=== PATIENT | male | born 1935 | race Caucasian/White ===

== ENCOUNTER 2023-09-02 14:50 | Inpatient (IN) | payer MEDICARE, BC, SELFPAY ==
[2023-09-02] VITALS (16 sets, daily range): BP systolic 85–159; BP diastolic 50–89; PULSE 72–98; BMI 26.1; BMI 27.3
[2023-09-02] MEDS: NSS 1000 IV (09:11)
[2023-09-02 09:22] LABS: ALT (SGPT) 12 U/L (0-50); AST (SGOT) 22 U/L (17-59); Albumin 3.5 g/dl (3.5-5.0); Alkaline Phosphatase 133 U/L (38-126); Blood Urea Nitrogen 17 mg/dl (9-20); Calcium 8.9 mg/dl (8.4-10.2); Carbon Dioxide 26 mmol/L (22-30); Chloride 105 mmol/L (98-107); Estimated Creatinine Clearance 58 ml/min; Glucose 111 mg/dl (70-99); Potassium 4.2 mmol/L (3.5-5.1); Sodium 137 mmol/L (135-145); Total Protein 6.2 g/dl (6.3-8.2); eGFR > 60.00
--- NOTE | 2023-09-02 09:31 | EDRN ---
Dr. Sullivan currently at the pts bedside speaking with the pt and the pts family
[2023-09-02 09:35] LABS: % Basophils 0.4 % (0-2); % Eosinophils 0.4 % (0-6); % Lymphocytes 69.3 % (20.5-51.1); % Monocytes 8.8 % (1.7-9.3); % Neutrophils 21.1 % (42.2-75.2); Absolute Monocytes 0.3 10^3/uL (0.1-0.6); Hematocrit 37.5 % (39.0-52.0); Hemoglobin 11.6 g/dL (13.0-18.0); Mean Corp Hgb Conc. 30.9 g/dL (33.0-37.0); Mean Corpuscular Hgb 27.9 pg (27.0-31.0); Mean Corpuscular Volume 90.1 fL (80.0-94.0); Nucleated Red Blood Cells % 0 % (-); Platelet Count 56 10^3/uL (130-400); Red Blood Cell Count 4.16 10^6/uL (4.70-6.10); Red Cell Dist. Width 19.2 % (11.5-14.5); White Blood Cell Count 2.8 10^3/uL (4.8-10.8)
[2023-09-02 09:43] LABS: Absolute Neutrophils 0.6 10^3/uL (1.4-6.5)
--- NOTE | 2023-09-02 09:45 | ED.GENMED ---
History of Present Illness
General
Chief Complaint: Fainting/Passed Out
Source: patient, spouse and family
Exam Limitations: altered mental status and dementia
Time Seen by Provider: 09/02/23 09:25
Nursing documentation reviewed up to this point in time: agreed with
Travel History
Have you had any contact with someone who has COVID-19?: No
Do you have any symptoms of coronavirus? Fever > 100 degrees, chills, cough, shortness of breath, sore throat, loss of taste or smell, muscle aches, or headache?: No
History of Present Illness
History of Present Illness:
88-year-old male presents with an episode of heavy trouble getting off the toilet, suffers from dementia PAF previously on beta-andre and Eliquis not currently also myelodysplasia, was admitted to [facility] a few weeks ago with a similar
episode for 3 days no definitive diagnosis did not mention any A-fib at that time and they did have A-fib after her surgery, he is having OT and PT in his house doing okay with his walker today he called out from the toilet apparently had a
large bowel movement could not get up states he looked a bit rigid eyes rolled up with speech abnormality no definitive seizure, now he is awake alert little bit more confused than his baseline
Past History
Past History
ED Past Medical History: Arrthythmia and Other (Dementia myelodysplasia); Negative Seizures
Social History
Tobacco: Non-smoker
Alcohol: None
Drug: None
Personal:
Living: with family
Employment: Retired
Phy Exam
Physical Exam
Physical Exam:
Physical Exam
General: Elderly male no tongue biting slow to respond
Neck: No posterior neck
Heart: Irregular slow
Lungs: no acute respiratory distress. clear bilaterally
Abdomen: Nontender
Neuro: Slow to answer questions moves all extremities no slurred speech
Skin: no rash
Psychiatric: cooperative
Extremities: no edema
Course
Orders/Labs/Results
Orders:
Orders
09/02/23 08:54
EKG [Electrocardiogram (*1)] Urgent
Reason for Study: Vertigo / Dizzy
EKG- Treatment ONCE
09/02/23 08:56
Complete Blood Count/With Diff Urgent
Comprehensive Metabolic Panel Urgent
09/02/23 09:11
0.9% Sodium Chloride 1000 ml [Nss] 1,000 ml IV BOLUS
09/02/23 09:41
CT Head W/o Iv Contrast Urgent
Comment:
Reason For Exam: speach abnormal
09/02/23 12:13
Urinalysis Reflex To Culture Urgent
Date Specimen was Collected: 09/02/23
Time Specimen was Collected: 12:09
Abnormal Lab Results
09/02/23
08:56
WBC 2.8 L 10^3/uL
(4.8-10.8)
RBC 4.16 L 10^6/uL
(4.70-6.10)
Hgb 11.6 L g/dL
(13.0-18.0)
Hct 37.5 L %
(39.0-52.0)
MCHC 30.9 L g/dL
(33.0-37.0)
RDW 19.2 H %
(11.5-14.5)
Plt Count 56 L 10^3/uL
(130-400)
Absolute Neuts (auto) 0.6 L* 10^3/uL
(1.4-6.5)
Neutrophils % 21.1 L %
(42.2-75.2)
Lymphocytes % 69.3 H %
(20.5-51.1)
Glucose 111 H mg/dl
(70-99)
Alkaline Phosphatase 133 H U/L
(38-126)
Total Protein 6.2 L g/dl
(6.3-8.2)
09/02/23 08:56
09/02/23 08:56
Vital Signs
Initial and Last Documented VS:
Initial Vital Signs
Temp Pulse Resp BP Pulse Ox
98.5 F 83 16 89/53 100
09/02/23 08:55 09/02/23 08:55 09/02/23 08:55 09/02/23 08:55 09/02/23 08:55
Last Documented Vital Signs
Temp Pulse Resp BP Pulse Ox
98.5 F 82 14 102/62 99
09/02/23 08:55 09/02/23 11:31 09/02/23 11:31 09/02/23 11:31 09/02/23 11:31
MDM/Problems Addressed
Differential Diagnosis Includes:
Vasovagal arrhythmia electrolyte abnormality orthostasis CVA progressive dementia UTI
MDM/Problems Addressed:
Weakness confusion
Chronic conditions affecting care:
Dementia A-fib
Chronic conditions affecting care: Arrhythmia and Neurological disorder
Acute Exacerbation and/or Progression of Chronic Illness: Arrhythmia and Neurological disorder
*Radiology
Radiology exam reviewed: preliminary read by ED provider
*Pulse Oximetry
Patient hypoxic: no
*EKG
Interpreted by ED Provider?: Yes
Interpretation: abnormal
Comparison EKG: no comparison EKG present
Heart Rate: 70
Rate: normal
Rhythm: a-fib
Ischemia: non-specific ST changes
*Batch And Furnace Operator Interpretation
Rate: normal
Interpretation: normal
Heart Rate: 70
Rhythm: a-fib
*Critical Care Note
Total Time (30-74mins, 75-104mins- exclusive of procedures): Not Applicable
Update Note
Update Note:
Update patient with low blood pressure thrombocytopenic has a fairly severe dementia sounds like vasovagal ensure it safe for him to go home in the state,
ED Attending Note
-
Portions of this chart may have been created with voice recognition software.� Occasional wrong word or��sound alike� substitutions may have occurred due to the inherent limitations of voice recognition software.
Discharge Plan
Departure
Patient Disposition: Admit
Date of Disposition: 09/02/23
Time of Disposition: 12:35
Admit to: Telemetry
Presentation/result/management discussed w/ accepting MD/DO: Hospitalist
Patient with high blood pressure during this ER visit?: No
Condition: Fair
Covid-19: Not Applicable
Discharge Problem:
Syncope, Orthostasis, PAF (paroxysmal atrial fibrillation)
Prescriptions:
No Action
acetaminophen [Tylenol] 325 mg Tablet
650 mg PO Q6HPRN PRN (Reason: mild pain)
sertraline 100 mg Tablet
100 mg PO DAILY
Theragen Tablet
1 tab PO DAILY
Referrals:
Anay Stewart DO [Family Provider] -
Interventions
Interventions:
*Risk Screen - Suicide Last Done: 09/02/23 08:55
*General Assessment Last Done: 09/02/23 08:55
*Neglect/Abuse Screening Last Done: 09/02/23 08:55
ED- Fall Risk Assessment Last Done: 09/02/23 08:55
*ED COVID-19 Vaccine History Last Done: 09/02/23 08:55
ED- Cardiac Assessment Last Done: 09/02/23 08:55
ED- Neurological Assessment Last Done: 09/02/23 08:55
Discharge Date and Time
Print Language: SWEDISH
[2023-09-02 12:49] LABS: Urine Albumin Negative (Neg - Trace); Urine Bilirubin Negative (Negative); Urine Character Clear (Clear); Urine Color Yellow; Urine Glucose Negative (Negative); Urine Ketone Negative (Negative); Urine Leukocyte Trace (Negative); Urine Nitrite Negative (Negative); Urine Occult Blood Negative (Negative); Urine Urobilinogen Negative (Neg - 1+)
[2023-09-02 13:10] LABS: Urine Bacteria Few (Negative); Urine Red Blood Cell 0-2 /HPF (0-2); Urine Squamous Cell 0-2 /LPF (Few); Urine White Cell 0-2 /HPF (0-5)
--- NOTE | 2023-09-02 13:21 | HPS.HSE ---
Addendum entered and electronically signed by Bora Contreras MD 09/02/23 15:34:
Seen and examined by me independently in collaboration with the nurse practitioner Gerald.
Past medical history/social history/medication/allergies reviewed.
Lab data and imaging data reviewed.
Patient with underlying dementia , MDS with chronic pancytopenia presents with episode of sudden onset of change in mental status with confusion.
History is from the was at bedside. Patient is alert but not oriented to place person or the surrounding things.
3 weeks ago he was at [facility] because he got up 1 morning and all of a sudden he was a different person with his mental status and also he could not walk. Evaluated apparently with a CT and MRI of the brain which showed no evidence of stroke.
Not clear what the final diagnosis was but he got somewhat better and went home.
This morning he was on the toilet seat and recently called for his and he was noted to be very stiff ,slumped to side. Mouth was stretched out and there was guttural sounds but no LOC. His eyes were open but they were kind of rolled up. He
was not responsive much at that time. Then he had more confusion. He could not recognize his kids when he was in the ER here today but later he started to come around and then he recognized them. Currently is improved but still not back to the
baseline. No obvious focal neurological deficit noted.
Rate controlled atrial fibrillation noted.
CT head was negative.
Chronic pancytopenia and based on the discussions with the daughter who is the PCP as well for the patient are at his baseline.
As per daughter Cora who is also his PCP_ He had an episode of A-fib postop with Ortho surgery and he was briefly on beta-andre and anticoagulation. Eliquis was stopped because of his chronic thrombocytopenia. Beta-andre also was stopped
as he was in sinus rhythm without recurrence.
clinical concern is of a TIA versus seizure. Will also rule out any A-fib related tachy jossie arrhythmias but with the way he presents with clear syncope doubt this is cardiac.
Consult Neurology
Long discussion with daughter Cora a physician and also PCP to her father. She said this morning she also had a talk with the sister who is a kid club attendant at [employer]. With 2 recurrent [id number] confusion and change in status
symptoms and finding on A-fib concern for TIA and to consider anticoagulation. She are hesitant with his MDS and chronic thrombocytopenia. Also advised her to explore watchman . Left msg to his primary kid club attendant Dr Bolanos.
AC once stroke is rule out if family make a decision on that.
Original Note:
Family Physician
-
Family Physician: Anay Stewart
Chief Complaint
-
Weakness
History of Present Illness
88-year-old with past medical history for dementia, MDS,'s PAF presented to us with weakness. Today after having bowel movement, he could not get up from the toilet. Patient yelled out for his . found him sitting on the toilet with a
rigid body. He was not able to talk. Patient was sloping out of the toilet seat. Patient was not able to comprehend at all. It lasted for 10 minutes. When he came to the hospital, he was having trouble finding his daughter's and 's name.
Patient was at [facility] 3 weeks ago with confusion and generalized weakness. Patient had a MRI and CAT scan done which was not remarkable. Patient was sent home with PT and OT. At present patient is back to baseline. Patient denies any
headache, dizziness. Patient denies any fever, chills, chest pain, short of breath. Patient denied abdominal pain, nausea, vomiting, diarrhea. Patient denied dysuria hematuria. Patient has dementia.
patient was diagnosed with atrial fib in 2021 after right hip replacement. patient ws on AC and metoprolol. stopped AC due to MDS. stopped Metoprol because he was in NSR
Head CT negative. Urinalysis negative. Patient was positive for orthostatic hypotension received 1 L normal saline in the ER. Admitting for further management
Medical History
Past Medical History
Past Medical History: Reports Other
Additional Past Medical History:
MDS
PAF
Dementia
Past Surgical History: Reports Other
Additional Past Surgical History:
Bilateral hip replacement
Back surgery
Right shoulder surgery
Social History
Tobacco: Non-smoker
Alcohol: Occasional
Drug: None
Personal:
Living: With Family
Family History
Family History: Not pertinent
Allergies / Home Medications
Allergies reflects when Allergies were last updated in [employer].
Home Medications with original date entered in [facility]
Allergy/Medication List:
Allergies
Allergy/AdvReac Type Severity Reaction Status Date / Time
latex Allergy Intermediate Rash Verified 06/26/22 07:00
Home Medications
acetaminophen 325 mg tablet (Tylenol) 650 mg PO Q6HPRN PRN mild pain 09/02/23
sertraline 100 mg tablet 100 mg PO DAILY 09/02/23
therapeutic multivitamin 1 tab PO DAILY 09/02/23
Review of Systems
-
Constitutional: Reports No Symptoms
EENT: Reports No Symptoms
Respiratory: Reports No Symptoms
Cardiac: Reports No Symptoms
Abdomen/GI: Reports No Symptoms
: Reports No Symptoms
Musculoskeletal: Reports No Symptoms
Skin: Reports No Symptoms
Neurological: Reports No Symptoms
Endocrine: Reports No Symptoms
Hematologic/Lymphatic: Reports No Symptoms
Psych: Reports No Symptoms
Physical Exam
Vital Signs
Vital Signs
Temp Pulse Resp BP Pulse Ox
98.5 F 77 14 88/57 99
09/02/23 08:55 09/02/23 12:45 09/02/23 12:45 09/02/23 12:00 09/02/23 12:15
Physical Exam
General: Well Developed, Well Nourished and No Apparent Distress
HEENT: NormoCephalic, Moist mucous membranes and Atraumatic
Respiratory: Clear
Cardiac: S1/S2 and Regular Rhythm; No Murmur or Rub
GI: Soft, Non Tender, Non Distended and Normal Bowel Sounds; No Organomegaly
Rectal: Deferred by Provider
Musculoskeletal: No Clubbing, No Cyanosis and No Edema
Skin: No Rash
Neuro: AO x 3 and Nonfocal/grossly intact
Psych: Calm
Laboratory Results
-
09/02/23 08:56
09/02/23 08:56
Laboratory Results
Total Bilirubin 1.0 mg/dl (0.2-1.3) 09/02/23 08:56
AST 22 U/L (17-59) 09/02/23 08:56
ALT 12 U/L (0-50) 09/02/23 08:56
Alkaline Phosphatase 133 U/L (38-126) H 09/02/23 08:56
Data Reviewed
-
CT Scan: Report Reviewed by me
Lab Data: Labs Reviewed by me
Impression/Plan
-
#near syncope
#positive orthostatics
-Stockings
-Monitor orthostatics
-Head CT with impression of No acute intracranial abnormalities.Findings compatible with diffuse cortical atrophy with nonspecific white matter changes as described above.
-EKG with A-fib
-neurology consulted
# Pancytopenia likely from MDS
-WBC 2.8, hemoglobin 11.6, platelets 56
-Continue to monitor
# History of PAF
-EKG with A-fib
-Heart rate controlled
-Continue to monitor
# History of dementia/anxiety
-Sertraline continued
# DVT prophylaxis
-SCDs
# CODE STATUS
-Full code
--- NOTE | 2023-09-02 14:17 | CON.NEURO4 ---
Addendum entered and electronically signed by Jeovanny Vasquez MD 09/02/23 16:06:
I saw and evaluated the patient I reviewed the note by Ana Luisa Painting and agree with the findings the following comments
The patient is an 88-year-old man with a past medical history of atrial fibrillation, dementia, myelodysplastic syndrome with thrombocytopenia, meningioma who presents to the hospital with near loss of consciousness along with abnormal stiffening
observed by his in the bathroom after a bowel movement this morning. History is obtained from predominantly the patient's and daughter with patient contributing some however his history is limited by dementia.
Patient and his relate that he was normal yesterday night. This morning the patient says he woke feeling as though he needed to have a bowel movement and he proceeded to go to the bathroom. His did not see him before he got to the
bathroom she was in the kitchen this morning. Patient members for having a bowel movement and then not much until he remembers his coming in to help him and then EMS workers arriving.
Patient's relates that he had called her for help and when she came in he was not fully unconscious but was poorly verbal and had a whole body stiffening appearance bilaterally of the upper and lower extremities. She did not observe any
repetitive or convulsive movements of the limbs. The stiffness was brief and the patient did seem to be confused for around 10 minutes before becoming much more oriented and talkative before this he was able to speak but was confused. No tongue
bite or bleeding was seen.
He came into the ED and did have mild hypotension 89/53 and it has improved blood pressure with a liter of normal saline. Patient reports that he has had good appetite recently.
Patient's and daughter relate that he has had recurrent issues of vasovagal type syncope for around 20 years now sometimes related to dehydration, these episodes did not happen from sleep and were not associated with tongue bite.
Patient had had a hospitalization at [facility] around 3 weeks ago where he had a sudden decline in walking difficulty and balance along with memory, he did improve some from this but did not make a completely full recovery with regard to mental
status and overall function.
Patient was diagnosed at first with mild cognitive impairment by local neurologist Dr. Mayfield which has worsened in the years since diagnosis.
Patient had previously been on anticoagulation for paroxysmal atrial fibrillation ablation but is no longer on this. With anticoagulation he did have some nosebleeds.
Patient has not had any history of overt ischemic stroke.
Neurologic examination
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
multistep commands, repetition is intact, spontaneous speech is fluent, insight is poor, short-term memory is impaired, no hallucinations no neglect.
Cranial nerves II through XII are normal
Parkinsonism or rigidity or tremor no pronator drift power is 5/5 for arm flexion and hip flexion bilaterally
Intact vibratory sense distally
Diminished reflexes throughout
Normal finger-nose testing bilaterally.
Gait exam deferred
CT head noncontrast shows generalized atrophy no acute infarct or hemorrhage no signs of subtle ischemia, moderate white matter disease in the hemispheres bilaterally.
Assessment:
1) I feel it is very likely the patient's episode this morning was an instance of vasovagal type syncope accompanied by some stiffening/convulsive type movement which is common with these episodes. Association with bowel movement along with
previous history of vasovagal episodes and the mildly low blood pressure I feel support vasovagal type syncope rather than seizure. Confusion after the syncope was around 10 minutes, if the patient with dementia had had generalized seizure I would
expect a much longer postictal period than 10 minutes.
-Such symptoms would be extremely rare to be a manifestation of TIA and I feel that this episode is unlikely to be a manifestation of TIA
2) previous decline around 3 weeks ago sounds like the stepwise decline either due to dementia, frailty or myelodysplastic syndrome effects on health
3) Thrombocytopenia most likely due to myelodysplastic syndrome
4) Atrial fibrillation
5) Previous diagnosis of mild cognitive impairment has likely progressed to dementia. Alzheimer's disease versus vacular dementia are most likely types.
Recommendations
-Hydration, follow blood pressure, cardiac telemetry
-Would obtain orthostatic vital signs tomorrow
-Decision to pursue anticoagulation or not will be an informed decision and risk-benefit analysis. I do not see any absolute contraindications to anticoagulation. Certainly he will be of elevated bleeding risk given thrombocytopenia as well as his
age and he did have some degree of nosebleeds previously with anticoagulation. Discussed with the family that this would be a risk and benefit analysis. Watchman device is a middle ground could be considered but would require antiplatelet therapy
at least for couple of months.
-Do not feel the patient would require an EEG study or further brain imaging
-Minimize sedating medications, avoid excessive disturbance at night, try to keep normal sleep wake schedule, avoid anticholiergics to help prevent delirium in the patient given existing dementia
Original Note:
Consultation - Neurology 4
-
CONSULTING PHYSICIAN: Merna Vasquez MD
REFERRING PHYSICIAN: Hospitalists/VALARIE Harden
DICTATED BY: VALARIE Montgomery
DATE/TIME OF REQUEST: 09/02/23
DATE/TIME OF CONSULTATION: 09/02/23
Reason for Consultation: Syncope
History of Present Illness:
This is an 88-year-old right-handed male who has presented to the hospital with report of syncopal event at home. Patient has dementia and some of this information is obtained from his at bedside. Patient's reports that he went to bed in
his usual state last evening (09/01/23). This morning around 0730 his reports hearing him getting ready in the bathroom when he started calling out for her for help. She found him sitting on the toilet having had a bowel movement. He tried to
stand up and wasn't able to, his whole body then became stiff but had no shaking, his eyes were open and rolled back, and he was unable to speak. She reports that he never fully lost consciousness. Patient reports that he remembers his coming
into the bathroom and then two pipe foreman arriving to help him but cannot recall any further details. When EMS arrived at the house about 10 minutes later he had 'come to' and was able to speak but was very confused. Prior to this event she reports he had
shaved his face and done his hair. On arrival to the ER blood pressure was 89/53. CT head was obtained and is negative for any acute abnormalities. Patient's reports that initially on arrival here he didn't know his daughter's name but
currently he seems back to his baseline and knows their names. He denies any headache, dizziness, speech/swallow difficulty, numbness, weakness, nausea, chest pain, palpitations, and shortness of breath.
About three weeks ago his reports that he woke up one morning and was not at all himself. He was 10 times more confused than usual, not doing his usual routine, and his gait was very unsteady. He was admitted at [facility] for evaluation and she
reports his entire workup including MRI brain was unremarkable. Upon returning home about 3 days later, she reports he was 90% back to his baseline but never came 100% back. Since then PT has been coming to the house several times per week and his
gait has returned to normal.
Patient is followed by Neurology Dr. Mayfield as an outpatient for dementia. His reports that in February 2022 he started having noticeable short term memory issues. In May 2022 he was diagnosed with mild cognitive impairment and his
reports they progressed this diagnosis to dementia in the past year. He has not been on any memory stabilization medications. They use white boards with date/time and reminders around the house to help keep him oriented. He has been using a cane for
9 months and since his hospitalization 3 weeks ago he has been using a walker. She denies any falls in the past several years. Additionally, he had a hip replacement in July 2022 and had paroxysmal Afib after that surgery. He was on Eliquis for
some time but due to thrombocytopenia and severe nose bleeds it was stopped after several months. He has had vasovagal syncope intermittently over the past 20 years. This typically occurs when he is dehydrated. His usual presentation when this
happens is that he turns green, is diaphoretic, and has diarrhea prior to passing out. He has never had body stiffening or eye rolling. She reports that it is not unusual for his blood pressure to run low. She denies any recent fevers or infections,
the only abnormality is that last night he urinated 4 times throughout the night when he typically only gets up twice nightly.
Past Medical History: Paroxysmal Afib (not on OAC), meningioma, dementia, myelodysplasia, thrombocytopenia, BPH, elevated PSA
Surgical History: Lumbosacral decompression x4, R THR
Family History: Reviewed and noncontributory.
Social History: Denies tobacco and illicit drug use. Rare alcohol.
Allergies: Latex.
Home Medications: See below.
Review of Symptoms:
Patient denies any fever, headache, chest pain, shortness of breath, GI or symptoms.
�Per the HPI.�All systems are reviewed negative except above.
Physical Exam:
The patient is afebrile, abdomen is nondistended, breathing is unlabored, skin is warm and dry, no edema.
Neurologic Examination:
The patient is awake, alert and oriented to self and type of place/not specific hospital. Reports it's April 2024. He is able to follow commands and answer some questions appropriately. Tends to change the subject instead of answering direct
questions. Moderate difficulty with simple calculations. There is no aphasia or dysarthria. On cranial nerve assessment, pupils are 3 mm bilateral, round and reactive to light and accommodation. Visual zhang are full. Extraocular movements are
intact. Facial sensations are intact and bilaterally symmetrical, there is no facial asymmetry. Hearing is diminished bilaterally to normal conversation volume. Tongue palate and uvula are midline. Sternocleidomastoid strengths are full bilaterally.
Motor strengths are 5/5 bilateral upper and lower extremities on medical research [place] scale. There is no drift or involuntary movement noted. Deep tendon reflexes are 2+ bilateral upper and lower extremities and Babinski is absent bilaterally.
Sensations of temperature and vibration are moderately diminished in bilateral lower extremities. There was no extinction noted on double simultaneous stimulation. Coordination is intact by finger to nose bilaterally.
Lab Results: See below.
Neuro Imaging:
1. CT Head 09/02/23: No acute intracranial abnormalities. Findings compatible with diffuse cortical atrophy with nonspecific white matter changes as described above.
Differentials for the patient's presentation include:
1. Likely vasovagal syncope following a bowel movement producing patient's symptoms today.
2. Hypotension, some concern for orthostasis.
3. Low concern for seizure or TIA producing these events. Event three weeks ago perhaps a decline in his cognitive status.
4. Afib not on anticoagulation, thrombocytopenia.
5. Dementia.
Patient has the following risk factors for their symptoms: Bowel movement, hypotension, dementia
Recommendations:
-Goal normotension.
-Check orthostatic vital signs BID.
-PT/OT/ST evaluations.
-Family to make an informed decision about if they want to pursue a Watchman device or anticoagulation, discussed this with them and Neurology's opinion that these events were not consistent with TIAs.
Discussed patient care with: Dr. Vasquez, the patient
Vital Signs and Labs
-
Vital Signs and Labs:
Vital Signs
Temp Pulse Resp BP Pulse Ox
98.5 F 77 14 88/57 99
09/02/23 08:55 09/02/23 12:45 09/02/23 12:45 09/02/23 12:00 09/02/23 12:15
Lab Results
09/02/23 08:56
09/02/23 08:56
Sodium 137 mmol/L (135-145) 09/02/23 08:56
Potassium 4.2 mmol/L (3.5-5.1) 09/02/23 08:56
BUN 17 mg/dl (9-20) 09/02/23 08:56
Glucose 111 mg/dl (70-99) H 09/02/23 08:56
Calcium 8.9 mg/dl (8.4-10.2) 09/02/23 08:56
--- NOTE | 2023-09-02 14:43 | EDRN ---
this RN called the receiving unit and notified them that paper report was going to be tubed up
[2023-09-02] MEDS: TYLENOL 650 MG PO (20:54)
[2023-09-03] VITALS (7 sets, daily range): BP systolic 115–163; BP diastolic 57–89; PULSE 62–88
[2023-09-03 06:45] LABS: Hematocrit 35.3 % (39.0-52.0); Hemoglobin 11.4 g/dL (13.0-18.0); Mean Corp Hgb Conc. 32.3 g/dL (33.0-37.0); Mean Corpuscular Hgb 28.2 pg (27.0-31.0); Mean Corpuscular Volume 87.4 fL (80.0-94.0); Platelet Count 48 10^3/uL (130-400); Red Blood Cell Count 4.04 10^6/uL (4.70-6.10)
[2023-09-03 07:12] LABS: Blood Urea Nitrogen 13 mg/dl (9-20); Carbon Dioxide 25 mmol/L (22-30); Chloride 105 mmol/L (98-107); Estimated Creatinine Clearance 61 ml/min; Glucose 96 mg/dl (70-99); Potassium 4.1 mmol/L (3.5-5.1); Sodium 136 mmol/L (135-145); eGFR > 60.00
[2023-09-03] MEDS: ZOLOFT 100 MG PO (08:53)
--- NOTE | 2023-09-03 10:36 | PTCARENOTE ---
pt with loose incontinent stool this AM while walking to the bathroom. pt at bedside asked if we had given the patient a stool softener, pt has not received one. MD made aware of change in bowel habits
--- NOTE | 2023-09-03 10:58 | W.PN.NEURO.1 ---
Today's Communication / Plan
-
Provide abdominal binder
Continue to check orthostatic vital signs BID.
Family to make an informed decision about if they want to pursue a Watchman device or anticoagulation, would recommend anticoagulation
Neuro Assessment/Plan
Assessment
Neuro Imaging:
1. CT Head 09/02/23: No acute intracranial abnormalities. Findings compatible with diffuse cortical atrophy with nonspecific white matter changes as described above.
Differentials for the patient's presentation include:
1. Likely vasovagal syncope following a bowel movement producing patient's symptoms today.
2. Hypotension, some concern for orthostasis.
3. Low concern for seizure or TIA producing these events. Event three weeks ago perhaps a decline in his cognitive status.
4. Afib not on anticoagulation, thrombocytopenia.
5. Dementia.
Plan
Recommendations:
Provide abdominal binder
Continue to check orthostatic vital signs BID.
Family to make an informed decision about if they want to pursue a Watchman device or anticoagulation, would recommend anticoagulation
Should have routine follow-up with his usual outpatient neurologist.
Subjective/Objective
Subjective Data
Date of Service: September 03, 2023
Objective Data
Vital Signs
Temp Pulse Resp BP Pulse Ox
37.1 C 62 16 142/74 100
09/03/23 07:37 09/03/23 07:37 09/03/23 07:37 09/03/23 07:37 09/03/23 10:19
Lab Results
09/03/23 06:03
09/03/23 06:03
Sodium 136 mmol/L (135-145) 09/03/23 06:03
Potassium 4.1 mmol/L (3.5-5.1) 09/03/23 06:03
BUN 13 mg/dl (9-20) 09/03/23 06:03
Glucose 96 mg/dl (70-99) 09/03/23 06:03
Calcium 9.0 mg/dl (8.4-10.2) 09/03/23 06:03
Patient Allergies
latex Allergy (Intermediate, Verified 06/26/22 07:00)
Rash
Data Reviewed
-
CT Head: Report Reviewed
Labs: Report Reviewed
Reviewed with: Physician
Old Records: Summarized
Past History
Past History
ED Past Medical History: Arrthythmia and Other (Dementia, myelodysplasia, orthostatic hypotension); Negative Seizures
ED Past Surgical History: Orthopedic (Lumbosacral decompression x 4, right THR)
Social History
Tobacco: Non-smoker
Alcohol: None
Drug: None
Personal:
Living: with family
Employment: Retired
Family History
Family History: Other (Reviewed and noncontributory)
Medications
-
Medications:
Generic Name Dose Route Start Last Admin
Trade Name Freq PRN Reason Stop Dose Admin
Acetaminophen 650 mg 09/02/23 16:14 09/02/23 20:54
Acetaminophen 325 Mg Tablet PO 09/30/23 16:13 650 mg
Q6HPRN PRN Administration
mild pain
Bisacodyl 10 mg 09/02/23 16:14
Bisacodyl 10 Mg Rectal Suppository RECTAL 09/30/23 16:13
[id number] PRN
constipation
Polyethylene Glycol 17 grams 09/02/23 16:14
Polyethylene Glycol Powder 17 Grams Packet PO 09/30/23 16:13
DAILYPRN PRN
constipation
Senna/Docusate Sodium 1 tablet 09/02/23 16:14
Docusate W/Senna (Yolanda-Colace) Tablet PO 09/30/23 16:13
BIDPRN PRN
constipation
Sertraline HCl 100 mg 09/03/23 08:00 09/03/23 08:53
Sertraline 100 Mg Tablet PO 10/01/23 07:59 100 mg
DAILY SHAN Administration
[2023-09-03] MEDS: TYLENOL 650 MG PO (14:15)
--- NOTE | 2023-09-03 15:01 | W.PN.HOSP.TC ---
Today's Communication/Plan
-
IV fluids
TSH/Cortisol
EKG
CW orthostatic BP checks
Assessment / Plan
Assessment / Plan
Episode of change in mental status with more confusion and slightly decreased responsiveness-based on available data and testing and story now more concern for vasovagal reaction. His episode was brief. Not much prolonged disorientation to
suggest a seizure. No obvious focal neurological deficit. Neurology thinks less likely TIA or seizure.
On admission his blood pressure was on the lower side. He was also noted to be in new A-fib. positive orthostasis. Symptoms happen when he was having a bowel movement .All going in favor of possible vasovagal. Rule out arrhythmia related.
Patient is back to sinus rhythm on the monitor. Get a twelve-lead EKG.
Orthostatic hypotension-no extrarenal losses. Not on any blood pressure medication. Will give a liter of fluid and see if any improvements. Check a TSH and cortisol. If persistent consider midodrine.
Paroxysmal atrial fibrillation-not on anticoagulation. Eliquis was discontinued in the past because of troublesome epistaxis. See my discussions with daughter yesterday about anticoagulation. I would choose anticoagulation and follow closely.
MDS with pancytopenia-follow counts. Follow outpatient with the primary oncologist.
Discussed with at bedside
Full code
Anticipated Discharge: 24 - 48 hours
Subjective/Interval History
-
Date of Service: September 03, 2023
Patient seated in the chair. Looks comfortable. Confused and tangential in his thinking. Pleasant. No agitation.
at bedside.
His congitionis back to his baseline.
Objective Data
-
Labs:
Laboratory Results
09/03/23
06:03
WBC 2.0 L*
Hgb 11.4 L
Hct 35.3 L
Plt Count 48 L
Sodium 136
Potassium 4.1
Chloride 105
Carbon Dioxide 25
BUN 13
Creatinine 0.9
Glucose 96
Calcium 9.0
Vital Signs:
Vital Signs
Temp Pulse Resp BP Pulse Ox
98.6 F 76 16 121/64 97
09/03/23 11:36 09/03/23 11:36 09/03/23 11:36 09/03/23 11:36 09/03/23 11:36
I&O
09/02/23 09/03/23 09/04/23
06:59 06:59 06:59
Intake Total 360 / 360
Output Total 1020 / 1020
Balance -660 / -660
Review of Systems
-
Unable to obtain full review of systems at this time due to: Dementia
Physical Exam
-
General: No Apparent Distress
HEENT: Moist Mucous Membranes
Respiratory: Clear to Auscultation
Cardiac: Regular Rhythm and S1/S2
GI: Soft
Neuro: Awake, Alert and Oriented (self and person)
Psych: Calm and Confused; Negative Agitated
Data Reviewed
-
Labs: Labs Reviewed by me
[2023-09-03 15:31] LABS: Cortisol, Random 11.6 ug/dl; TSH 2.22 uIU/ml (0.47-4.68)
--- NOTE | 2023-09-03 16:05 | CM ---
MEt with as patient was visiting with friends. 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
He uses rolling walker. He has toilet rails, shower rails, shower seat at home.
Pharmacy: [facility].
HE has used [facility] in past. NO history of SNF. COnfirmed with to add dgtr Dr. Anay Woods as next of kin in addition to .
There is another dgtr who is a reduction furnace operator and professor.
Plan is home. CM to follow for any discharge needs.
[2023-09-03] MEDS: NSS 1000 IV (16:31)
[2023-09-04] VITALS (11 sets, daily range): BP systolic 87–176; BP diastolic 48–86; PULSE 64–116
[2023-09-04 07:09] LABS: Hematocrit 37.2 % (39.0-52.0); Hemoglobin 12.1 g/dL (13.0-18.0); Mean Corp Hgb Conc. 32.5 g/dL (33.0-37.0); Mean Corpuscular Hgb 28.3 pg (27.0-31.0); Mean Corpuscular Volume 86.9 fL (80.0-94.0); Platelet Count 53 10^3/uL (130-400); Red Blood Cell Count 4.28 10^6/uL (4.70-6.10)
[2023-09-04 07:24] LABS: White Blood Cell Count 2.2 10^3/uL (4.8-10.8)
[2023-09-04 07:26] LABS: Blood Urea Nitrogen 12 mg/dl (9-20); Carbon Dioxide 25 mmol/L (22-30); Chloride 104 mmol/L (98-107); Estimated Creatinine Clearance 68 ml/min; Glucose 95 mg/dl (70-99); Sodium 136 mmol/L (135-145); eGFR > 60.00
[2023-09-04] MEDS: ZOLOFT 100 MG PO (08:24)
--- NOTE | 2023-09-04 11:30 | PTCARENOTE ---
Patient's automatic blood pressure taken by tech 87/52, manual BP taken by this RN 90/48 RUE. Patient in and out of afib and NSR on monitor, HR upwards of 110s-120s at times before dropping back to 80s-90s. Patient sitting in chair, denies any
lightheadedness or dizziness at this time. MD made aware, no new orders at current time.
--- NOTE | 2023-09-04 13:30 | PTCARENOTE ---
Addendum entered by Micki Enrique RN 09/04/23 19:35:
Midodrine and metoprolol ordered per MD and administered by this RN - see MAR. Patient's BP one hour after administration of ordered midodrine 115/63, HR 89. Patient states no concerns at this time, abdominal binder and knee high TEDs in place per
order.
Original Note:
Repeat automatic BPs taken by this RN - 98/58 HR 82 LUE, 94/60 HR 71 RUE. Patient continues to deny any lightheadedness or dizziness. Abdominal binder in place per order, MD at bedside to assess.
--- NOTE | 2023-09-04 15:24 | W.PN.HOSP.TC ---
Today's Communication/Plan
-
start on midodrine and low-dose beta-andre as blood pressure permits
Statin Eliquis 2.5 mg twice daily
Echocardiogram
Cardiology consult.
Assessment / Plan
Assessment / Plan
Episode of change in mental status with more confusion and slightly decreased responsiveness-based on available data and testing and story now more concern for vasovagal reaction. His episode was brief. Not much prolonged disorientation to suggest
a seizure. No obvious focal neurological deficit. Neurology thinks less likely TIA or seizure.
On admission his blood pressure was on the lower side. He was also noted to be in new A-fib. positive orthostasis. Symptoms happen when he was having a bowel movement .All going in favor of possible vasovagal. Rule out arrhythmia related.
Paroxysmal afib - patient to back and forth in A-fib. Today he is in A-fib and also is hemodynamically on the lower side with does not tolerate his A-fib. No obvious heart failure. He is asymptomatic. Consult cardiology. Obtain
echocardiogram.Eliquis was discontinued in the past because of troublesome epistaxis. Daughters today are agreeable with anticoagulation because of patient going in and out of A-fib. Will start with 2.5 mg twice a day.
Orthostatic hypotension-no extrarenal losses. Not on any blood pressure medication. s/p 1 liter of fluid with no improvement.Normal TSH and cortisol. Upon discussion with the family who are physicians he has chronic orthostatic hypotension.
Started on midodrine.
MDS with pancytopenia-follow counts. Follow outpatient with the primary oncologist.
Discussed with at bedside / 2 daughters on the phone
Full code
DW cards today
Anticipated Discharge: > 48 hours
Subjective/Interval History
-
Date of Service: September 04, 2023
patient went back to A-fib today. His blood pressure on the lower side. He is voicing no specific complaints. He got dementia and cognitively impaired . He is Pleasantly confused.
at the bedside. She has seen loose stool today.
No diarrhea.
He is eating okay without any nausea vomiting. Does not complain of abdominal pain.
Denies any shortness of breath, chest pain or palpitations.
Objective Data
-
Labs:
Laboratory Results
09/04/23
06:27
WBC 2.2 L*
Hgb 12.1 L
Hct 37.2 L
Plt Count 53 L
Sodium 136
Potassium 4.0
Chloride 104
Carbon Dioxide 25
BUN 12
Creatinine 0.8
Glucose 95
Calcium 9.0
Vital Signs:
Vital Signs
Temp Pulse Resp BP Pulse Ox
98.2 F 71 20 94/60 97
09/04/23 11:38 09/04/23 13:42 09/04/23 11:38 09/04/23 13:42 09/04/23 11:38
I&O
09/03/23 09/04/23 09/05/23
06:59 06:59 06:59
Intake Total 360 / 360 2160 / 2160
Output Total 1020 / 1020 1350 / 1350
Balance -660 / -660 810 / 810
Review of Systems
-
Unable to obtain full review of systems at this time due to: Dementia
Physical Exam
-
General: No Apparent Distress
HEENT: Moist Mucous Membranes
Respiratory: Clear to Auscultation
Cardiac: S1/S2 (hard to hear), Irregular Rhythm and Tachycardic; Negative JVD
GI: Soft
Neuro: Awake, Alert and Oriented (self and person)
Psych: Calm
Data Reviewed
-
Labs: Labs Reviewed by me
--- NOTE | 2023-09-04 15:28 | CON.CAR ---
Consultation
Consultation Request
Date/Time Consultation Requested: 09/04/23
Date/Time Consultation Performed: 09/04/23
Requesting Provider: Dr Contreras
Performing Provider: Dr San
Reason for Consultation: Afib
Medical History
-
Chief Complaint: altered mental status
History of Present Illness:
88with history MDS, PAF not on OAT, recent hospitalization at [facility] for AMS without known etiology, her with recurrent newar syncopy while in the bathroom. With this evaluation has included orthostatic hypotension and recurrent atrial
fibrillation. We are asked to help manage paf. Of note, patient now on midodrine and this afternoon had recurrent paf with rvr. Plan was for bb with possible rhythm control strategy. 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
(cardiology-Fiona and family practice-Cora). Dr Contreras had multiple discussions with them and felt consultation for possible rhythm control was indicated.
Of note, initial ECG was atrial fibrillation at 75bpm--QTDC 444m/s. He then had conversion to sinus without any conversion pause,ECG today NSR. Currently he is in atrial tachycardia that has responded to bb. Additionally plt # has been 56,48, 52.
Of note in 2022 level was 30. There is discussion and consideration of using off label Eliqus 2.5mg po bid. Finally, Dr Contreras had discussion with op cards Dr Bolanos and his daughters to consider rhythm strategy. Meanwhile to address his orthostasis
midodrine was started.
Past Medical History
Past Medical History: Arrhythmias (paf no on OAT given MDS and nose bleeds) and Other (OH, MDS, OBS)
Social History
Tobacco: Non-Smoker
Alcohol: None
Personal:
Living: With Family
Family History
Family History: Reviewed & Not Pertinent
Allergies / Home Medications
Allergy/AdvReac Type Severity Reaction Status Date / Time
latex Allergy Intermediate Rash Verified 06/26/22 07:00
�Medication �Instructions �Recorded �Confirmed �Type
acetaminophen 325 mg tablet 650 mg PO Q6HPRN PRN mild pain 09/02/23 09/02/23 History
(Tylenol)
sertraline 100 mg tablet 100 mg PO DAILY Mental Health 09/02/23 09/02/23 History
therapeutic multivitamin 1 tab PO DAILY Supplement 09/02/23 09/02/23 History
Review of Systems
-
Unable to obtain full review of systems at this time due to: Dementia
Physical Exam
Vital Signs
Temp Pulse Resp BP Pulse Ox
98.2 F 71 20 94/60 97
09/04/23 11:38 09/04/23 13:42 09/04/23 11:38 09/04/23 13:42 09/04/23 11:38
Lab Results
09/04/23 06:27
09/04/23 06:27
Physical Exam
General: Well Developed, Well Nourished and No Apparent Distress
HEENT: Normocephalic
Respiratory: Clear, Wheezes, Crackles and Rhonchi
Cardiac: S1/S2, Regular Rhythm, Murmur (none) and Rub (none)
GI: Soft
Genito-urinary: Costovertebral Angle Tend
Neuro: Awake
Psych: Calm
Impression / Plan
-
near syncope:
-sounds c/w vasovagal compounding orthostasis
-agree with midodrine, would change to breakfast and lunch as he goes to bed early
-agree with gavi perez
-don't suspect arrhythmic cause, no conversion pauses send and no symptoms while in arrhythmia now, and presented in rate controlled afib
Arrhythmia:
-PAF
-PAT
-currently in PAT.
-is tolerating low dose bb with successful rate control and bp is adequate
-would prefer rate control if able
-if bp doesn't allow, could consider amiodarone
-C2V -2 for age, Has bled 2 and labile plts and fall risk, in this setting DOAC risk > benefit
-no clear benefit of half dose eliquis but it will increase his bleeding risk. I favor no DOAC, but can be reconsidered as an outpatient
-if plt prove stable enough, could consider watchman
-reportedly normal echo a year ago, can update
OH:
-midodrine with breakfast and lunch
-abd binder
-teds
OBS: severe
d/w Dr Contreras. I also discuss with Fiona Allen his daughter who is a plastic manager.
Data Reviewed
-
EKG: Tracing Personally Visualized and interpreted (NSR ) and Discussed with Patient
[2023-09-04] MEDS: TOPROL XL 25 MG PO (15:52)
[2023-09-04] MEDS: ProAmatine 5 MG PO (15:52)
[2023-09-05 03:19] VITALS: BP 131/80
[2023-09-05 06:17] LABS: Hematocrit 35.7 % (39.0-52.0); Hemoglobin 11.7 g/dL (13.0-18.0); Mean Corp Hgb Conc. 32.8 g/dL (33.0-37.0); Mean Corpuscular Hgb 28.4 pg (27.0-31.0); Mean Corpuscular Volume 86.7 fL (80.0-94.0); Platelet Count 56 10^3/uL (130-400); Red Blood Cell Count 4.12 10^6/uL (4.70-6.10); Red Cell Dist. Width 19.4 % (11.5-14.5)
[2023-09-05 06:18] LABS: White Blood Cell Count 2.3 10^3/uL (4.8-10.8)
[2023-09-05 06:48] LABS: Blood Urea Nitrogen 19 mg/dl (9-20); Calcium 9.1 mg/dl (8.4-10.2); Carbon Dioxide 23 mmol/L (22-30); Chloride 106 mmol/L (98-107); Estimated Creatinine Clearance 55 ml/min; Glucose 101 mg/dl (70-99); Potassium 4.2 mmol/L (3.5-5.1); Sodium 135 mmol/L (135-145); eGFR > 60.00
[2023-09-05 08:43] VITALS: BP 109/59
[2023-09-05] MEDS: ProAmatine 5 MG PO ×2 (09:26→13:10)
[2023-09-05] MEDS: TOPROL XL 12.5 MG PO ×2 (09:27→15:07)
[2023-09-05] MEDS: ZOLOFT 100 MG PO (09:28)
--- NOTE | 2023-09-05 09:48 | W.PN.CD ---
Today's Communication / Plan
-
echo
likely discharge home on midodrine and bb,
explained appropriate midodrine use to his
will arrange follow up with our office
Impression / Plan
-
near syncope:
-sounds c/w vasovagal compounding orthostasis
-agree with midodrine, would change to breakfast and lunch as he goes to bed early
-agree with abd binder, teds
-if echo normal salt and volume replete diet
-don't suspect arrhythmic cause, no conversion pauses send and no symptoms while in arrhythmia now, and presented in rate controlled afib
Arrhythmia:
-PAF
-PAT
-currently in back in sinus without conversion pause
-is tolerating low dose bb with successful rate control and bp is adequate
-would prefer rate control if able
-C2V -2 for age, Has bled 2 and labile plts and fall risk, in this setting DOAC risk > benefit
-no clear benefit of half dose eliquis but it will increase his bleeding risk. I favor no DOAC, but can be reconsidered as an outpatient
-if plt prove stable enough, could consider watchman
-reportedly normal echo a year ago, can update
OH:
-midodrine with breakfast and lunch
-abd binder
-teds
OBS: severe
Subjective: he is without complaint. Sitting in the chair without issue
his at bedside provided history
Physical Exam
Vital Signs/Labs
Vital Signs
Temp Pulse Resp BP Pulse Ox
97.7 F 76 18 109/59 98
09/05/23 08:43 09/05/23 09:27 09/05/23 08:43 09/05/23 09:27 09/05/23 08:43
09/05/23 05:36
09/05/23 05:36
TSH 2.22 uIU/ml (0.47-4.68) 09/03/23 06:03
Physical Exam
Constitutional: No acute distress
Cardiovascular: Rhythm & rate is regular, Pedal edema is absent, JVD pressure is normal, Systolic murmur absent and Diastolic murmur absent
Respiratory: Respiratory effort normal, Lungs clear to auscul., Wheeze Absent and Crackles Absent
Neuro/Psych: AO x 3
Data Reviewed
-
Date of Service: September 05, 2023
Medical Decision Making: Review of Case with other Provider (d/w Dr Shah and updated his daughter Dr Fiona Allen)
--- NOTE | 2023-09-05 09:54 | W.PN.HOSP.TC ---
Today's Communication/Plan
-
Cleared by cardiology for discharge today
Assessment / Plan
Assessment / Plan
Episode of change in mental status with more confusion and slightly decreased responsiveness-based on available data and testing and story now more concern for vasovagal reaction. His episode was brief. Not much prolonged disorientation to suggest
a seizure. No obvious focal neurological deficit. Neurology thinks less likely TIA or seizure.
On admission his blood pressure was on the lower side. He was also noted to be in new A-fib. positive orthostasis. Symptoms happen when he was having a bowel movement .All going in favor of possible vasovagal. Rule out arrhythmia related.
Paroxysmal afib - patient to back and forth in A-fib. Today he is in A-fib and also is hemodynamically on the lower side with does not tolerate his A-fib. No obvious heart failure. He is asymptomatic. Appreciate cardiology input, rate currently
controlled on Toprol-XL 12.5 mg twice a day, not an anticoagulation candidate since he has bled twice, and he has not follow-up with us. Cardiology recommends watchman outpatient
Orthostatic hypotension-no extrarenal losses. Not on any blood pressure medication. s/p 1 liter of fluid with no improvement.Normal TSH and cortisol. Upon discussion with the family who are physicians he has chronic orthostatic hypotension.
Started on midodrine. No drop on 09/04
MDS with pancytopenia-follow counts. Follow outpatient with the primary oncologist.
Discussed with at bedside / 1 daughters on the phone 09/04
Full code
DW cards today
Physical Exam
General: No acute distress
HEENT: Normocephalic, Atraumatic, EOMI, MMM
Respiratory: Clear to Auscultation bilaterally
Cardiac: Normal S1/S2, Regular Rate and Rhythm
GI: Soft, Nontender, Nondistended, Normal Bowel Sounds
Extremities: No Clubbing, Cyanosis, or Edema
Neuro: Nonfocal/Grossly Intact
Psych: Calm, Cooperative
Derm: No Visible lesions
Anticipated Discharge: Today
Subjective/Interval History
-
Date of Service: September 05, 2023
No lightheadedness or dizziness with standing. No fever, no chest pain. No vomiting.
Objective Data
-
Labs:
Laboratory Results
09/05/23
05:36
WBC 2.3 L*
Hgb 11.7 L
Hct 35.7 L
Plt Count 56 L
Sodium 135
Potassium 4.2
Chloride 106
Carbon Dioxide 23
BUN 19
Creatinine 1.0
Glucose 101 H
Calcium 9.1
Vital Signs:
Vital Signs
Temp Pulse Resp BP Pulse Ox
97.7 F 76 18 109/59 98
09/05/23 08:43 09/05/23 09:27 09/05/23 08:43 09/05/23 09:27 09/05/23 08:43
I&O
09/04/23 09/05/23 09/06/23
06:59 06:59 06:59
Intake Total 2160 / 2160 480 / 480
Output Total 1350 / 1350
Balance 810 / 810 480 / 480
[2023-09-05 11:34] VITALS: BP 97/59
[2023-09-05 11:35] VITALS: BP 100/58; BP 106/58; BP 97/59; PULSE 63; PULSE 69; PULSE 76
[2023-09-05 15:15] VITALS: BP 120/53
--- NOTE | 2023-09-05 16:40 | W.DCSUMMARY ---
Discharge Summary
Discharge Data
Date of Admission: 09/02/23
Date of Discharge: 09/05/23
-
Pending Results: No
Hospital Course
Discharge diagnoses:
Vasovagal reaction
Paroxysmal atrial fibrillation
Orthostatic hypotension
Myelodysplastic syndrome
Dementia
Consults: Cardiology, neurology
Echo:
Normal biventricular size and systolic function without regional wall motion
abnormality.
Mild concentric left ventricular hypertrophy.
No significant valvular disease.
Mitral annular calcification.
NSR by rhythm strip.
No prior study available for comparison.
Hospital course:
88-year-old male with a past medical history of MDS, paroxysmal atrial fibrillation, and dementia who presented with near syncope associated with abnormal stiffening observed by his in the bathroom after a bowel movement.
Patient was seen in conjunction with neurology. Head CT was negative for acute intracranial abnormality. Neurology suspects that he had a vasovagal reaction. He was also found to have orthostatic hypotension. He was started on midodrine 5 mg
twice a day. He was also counseled to wear an abdominal binder and LIANNE stockings. His orthostatic hypotension resolved, his dizziness resolved.
Patient has a history of paroxysmal atrial fibrillation. Patient was seen in conjunction with cardiology, who states he has both paroxysmal atrial fibrillation and paroxysmal atrial tachycardia. He is currently back in normal sinus rhythm without
conversion pause. Cardiology recommends metoprolol tartrate 12.5 mg twice a day. Patient has bled twice, has labile platelets secondary to MDS, and is a fall risk. Cardiology recommends no anticoagulation, and outpatient follow-up for
consideration of Watchman device.
Patient was seen in conjunction with PT, who recommended home PT. He is medically stable and cleared by cardiology for discharge. He needs to follow-up with cardiology in the office, as well as his primary care doctor in 1 week.
Disposition: Home with home PT
Discharge planning: Required 37 minutes
Discharge Plan
-
Patient Disposition: Home with Home Care
Discharge Diagnosis/Procedures: Near syncope, paroxysmal atrial fibrillation, paroxysmal atrial tachycardia, orthostatic hypotension
Condition: Good
Diet: Low Fat and Low Cholesterol
Activity: As tolerated
Activity Restrictions/Additional Instructions:
Please continue wearing your abdominal binder and LIANNE stockings when getting up.
Follow-up with your primary care doctor in 1 week, and cardiology in the office for consideration of a Watchman device.
Referrals:
Shyann Martinez CRNP [Specified Professional Personl] - 09/19/23 1:00 pm
Anay Stewart DO [Family Provider] - in one week
Prescriptions:
New
midodrine 5 mg Tablet
5 mg PO DAILY@1200 Qty: 30 0RF
midodrine 5 mg Tablet
5 mg PO DAILY Qty: 30 0RF
metoprolol succinate 25 mg Tablet Extended Release 24 Hr
12.5 mg PO BID@1000,1400 Qty: 60 0RF
Continued
acetaminophen [Tylenol] 325 mg Tablet
650 mg PO Q6HPRN PRN (Reason: mild pain)
sertraline 100 mg Tablet
100 mg PO DAILY
therapeutic multivitamin Tablet
1 tab PO DAILY
Discharge Orders:
Discharge Patient (As Directed); Ordered 09/05/23
Ordered By: Suraj Shah
Discharge Date and Time
Discharge Date/Time: 09/05/23 17:17
Print Language: TAJIK
--- NOTE | 2023-09-05 16:41 | CM ---
Patient has been medically cleared for discharge to home with resumption of [facility], PT/OT skilled services. Family will transport home.
[facility] FAX: [phone]
== END 2023-09-05 17:17 | disposition home health service (06) | DRG 312 ==
LOC: 2 NORTH 14:50
PROVIDERS: Registered Nurse; ADMITTING PHYSICIAN Internal Medicine; ATTENDING PHYSICIAN Family Medicine; CONSULT PHYSICIAN Internal Medicine Cardiovascular Disease; CONSULT PHYSICIAN Student in an Organized Health Care Education/Training Program; EMERGENCY PHYSICIAN Emergency Medicine; FAMILY PHYSICIAN Family Medicine
DX: I95.1 Orthostatic hypotension (principal); D61.818 Other pancytopenia; F02.A4 Dementia in other diseases classified elsewhere, mild, with anxiety; I47.19 Other supraventricular tachycardia; I48.0 Paroxysmal atrial fibrillation; D46.9 Myelodysplastic syndrome, unspecified; D69.59 Other secondary thrombocytopenia; I34.81 Nonrheumatic mitral (valve) annulus calcification
CPT/HCPCS: 70450; 80048; 80053; 81003; 81015; 82533; 84443; 85025; 85027; 93005; 93306; 96360; 97162; 97166; 99285

== ENCOUNTER 2023-09-20 00:52 | Emergency (ER) | payer MEDICARE, BC, SELFPAY ==
[2023-09-20] VITALS (9 sets, daily range): BP systolic 100–125; BP diastolic 47–91; PULSE 64–78; BMI 27.3
--- NOTE | 2023-09-20 01:31 | ED.GENMED ---
History of Present Illness
<CAMI Erwin - Last Filed: 09/20/23 05:48>
General
Chief Complaint: Fall
Source: patient and significant other
Exam Limitations: none
Time Seen by Provider: 09/20/23 01:00
Travel History
Have you had any contact with someone who has COVID-19?: No
Do you have any symptoms of coronavirus? Fever > 100 degrees, chills, cough, shortness of breath, sore throat, loss of taste or smell, muscle aches, or headache?: No
History of Present Illness
History of Present Illness:
88 Y/O M with a PMH of dementia, AFIB, tachycardia, syncope, double hip replacement (right) and chronic shoulder pain with complaints of right-sided shoulder pain after his fall. Pt is alert and oriented to his name and place. Not oriented to time.
Pt is here with his . His states they were both in bed sleeping, when she noticed her was on the floor, on his knees with his head facing the bed. She was unable to lift him so she called 9-1-1. She did report he felt nauseas while
on the floor, but did not throw up.
Pt was recently here and discharged on 09/04 with episode of near syncope, associated with abnormal stiffening observed by after a BM.
Pt is currently on Ciprofloxacin for a UTI. He started the antibiotic last Tuesday. Pt reports he will be on it for two more weeks, for a total of three weeks. He is taking Cipro 250 mg BID.
Past History
<CAMI Erwin - Last Filed: 09/20/23 05:48>
Past History
ED Past Medical History: Arrthythmia and Other (Dementia, myelodysplasia, orthostatic hypotension); Negative Seizures
ED Past Surgical History: Orthopedic (Lumbosacral decompression x 4, right THR)
Social History
Tobacco: Non-smoker
Alcohol: None
Drug: None
Personal:
Living: with family
Employment: Retired
Family History
Family History: Other (Reviewed and noncontributory)
Review of Systems
<Crystal Dove [facility] - Last Filed: 09/20/23 05:48>
Review of Systems
Unable to obtain full review of systems at this time due to: dementia
EENT: Reports no symptoms
Respiratory: Reports no symptoms
Cardiac: Reports no symptoms
ABD/GI: Reports no symptoms
: Reports no symptoms
Musculoskeletal: Reports muscle pain
Skin: Reports no symptoms
Phy Exam
<Crystal Dove [facility] - Last Filed: 09/20/23 05:48>
Physical Exam
Physical Exam:
+Pain with movement of right shoulder
General Physical Exam
General Presentation: well appearing
General age: appears stated age
General Skin: warm
General Habitus: elderly
General Mental: alert (AAOX2 (person and place))
General Hydration: dry mucous membranes
Eye Exam
Eye Exam: PERRL
Course
<Crystal Dove [facility] - Last Filed: 09/20/23 05:48>
Orders/Labs/Results
Orders:
Orders
09/20/23 01:01
Complete Blood Count/With Diff Urgent
Comprehensive Metabolic Panel Urgent
Troponin I Urgent
09/20/23 01:29
Electrocardiogram (*1) Urgent
Reason for Study: Syncope
EKG- Treatment ONCE
09/20/23 01:41
Lactic Acid Urgent
09/20/23 01:51
CT Head W/o Iv Contrast Urgent
Comment:
Reason For Exam: fall out of bed vs syncope.(?)head injury,dementia
09/20/23 02:23
0.9% Sodium Chloride 1000 ml [Nss] 1,000 ml IV BOLUS
Acetaminophen [Tylenol] 1,000 mg PO NOW STA
09/20/23 04:21
Urinalysis Reflex To Culture Urgent
Date Specimen was Collected: 09/20/23
Time Specimen was Collected: 01:44
09/20/23 05:09
Orthostatic VS- Treatment ONCE
Abnormal Lab Results
09/20/23 09/20/23
01:01 04:21
WBC 2.2 L* 10^3/uL
(4.8-10.8)
RBC 3.84 L 10^6/uL
(4.70-6.10)
Hgb 10.8 L g/dL
(13.0-18.0)
Hct 33.3 L %
(39.0-52.0)
MCHC 32.4 L g/dL
(33.0-37.0)
RDW 19.3 H %
(11.5-14.5)
Plt Count 44 L 10^3/uL
(130-400)
Absolute Neuts (auto) 0.5 L* 10^3/uL
(1.4-6.5)
Neutrophils % 20.9 L %
(42.2-75.2)
Lymphocytes % 68.6 H %
(20.5-51.1)
Monocytes % 10.0 H %
(1.7-9.3)
BUN 21 H mg/dl
(9-20)
Glucose 128 H mg/dl
(70-99)
Total Protein 6.2 L g/dl
(6.3-8.2)
Urine Ketones Trace A
(Negative)
09/20/23 01:01
09/20/23 01:01
Vital Signs
Initial and Last Documented VS:
Initial Vital Signs
Temp Pulse Resp BP Pulse Ox
98.6 F 60 18 100/48 96
09/20/23 00:54 09/20/23 00:54 09/20/23 00:54 09/20/23 00:54 09/20/23 00:54
Last Documented Vital Signs
Temp Pulse Resp BP Pulse Ox
98.6 F 73 20 117/64 96
09/20/23 00:54 09/20/23 05:37 09/20/23 05:37 09/20/23 05:37 09/20/23 05:35
<Sarah Ulrich, DO - Last Filed: 09/20/23 05:48>
Orders/Labs/Results
Orders:
Orders
09/20/23 01:01
Complete Blood Count/With Diff Urgent
Comprehensive Metabolic Panel Urgent
Troponin I Urgent
09/20/23 01:29
Electrocardiogram (*1) Urgent
Reason for Study: Syncope
EKG- Treatment ONCE
09/20/23 01:41
Lactic Acid Urgent
09/20/23 01:51
CT Head W/o Iv Contrast Urgent
Comment:
Reason For Exam: fall out of bed vs syncope.(?)head injury,dementia
09/20/23 02:23
0.9% Sodium Chloride 1000 ml [Nss] 1,000 ml IV BOLUS
Acetaminophen [Tylenol] 1,000 mg PO NOW STA
09/20/23 04:21
Urinalysis Reflex To Culture Urgent
Date Specimen was Collected: 09/20/23
Time Specimen was Collected: 01:44
09/20/23 05:09
Orthostatic VS- Treatment ONCE
Abnormal Lab Results
09/20/23 09/20/23
01:01 04:21
WBC 2.2 L* 10^3/uL
(4.8-10.8)
RBC 3.84 L 10^6/uL
(4.70-6.10)
Hgb 10.8 L g/dL
(13.0-18.0)
Hct 33.3 L %
(39.0-52.0)
MCHC 32.4 L g/dL
(33.0-37.0)
RDW 19.3 H %
(11.5-14.5)
Plt Count 44 L 10^3/uL
(130-400)
Absolute Neuts (auto) 0.5 L* 10^3/uL
(1.4-6.5)
Neutrophils % 20.9 L %
(42.2-75.2)
Lymphocytes % 68.6 H %
(20.5-51.1)
Monocytes % 10.0 H %
(1.7-9.3)
BUN 21 H mg/dl
(9-20)
Glucose 128 H mg/dl
(70-99)
Total Protein 6.2 L g/dl
(6.3-8.2)
Urine Ketones Trace A
(Negative)
09/20/23 01:01
09/20/23 01:01
Vital Signs
Initial and Last Documented VS:
Initial Vital Signs
Temp Pulse Resp BP Pulse Ox
98.6 F 60 18 100/48 96
09/20/23 00:54 09/20/23 00:54 09/20/23 00:54 09/20/23 00:54 09/20/23 00:54
Last Documented Vital Signs
Temp Pulse Resp BP Pulse Ox
98.6 F 73 20 117/64 96
09/20/23 00:54 09/20/23 05:37 09/20/23 05:37 09/20/23 05:37 09/20/23 05:35
<CAMI Erwin - Last Filed: 09/20/23 05:48>
MDM/Problems Addressed
Differential Diagnosis Includes:
Concussion, Syncope due to Vasovagal reaction, Complicated UTI
MDM/Problems Addressed:
Fall
<CAMI Erwin - Last Filed: 09/20/23 05:48>
*Critical Care Note
Total Time (30-74mins, 75-104mins- exclusive of procedures): Not Applicable
<Sarah Ulrich DO - Last Filed: 09/20/23 05:48>
*Radiology
Radiology exam reviewed: radiology read reviewed (CT of the head shows no acute traumatic findings)
*Pulse Oximetry
Patient hypoxic: no
*EKG
Interpreted by ED Provider?: Yes
Comparison EKG: no changes (Unchanged from previous September 02July heart rate has decreased from 63 to now 55)
Rate: bradycardiac
Rhythm: sinus
[place]: normal axis
Interval: normal interval
QRS Pattern: normal QRS
Ischemia: no ischemia
*Director Of Manufacturing Operations Interpretation
Rate: bradycardiac
Interpretation: normal
Rhythm: sinus
ED Attending Note
<CAMI Erwin - Last Filed: 09/20/23 05:48>
-
Portions of this chart may have been created with voice recognition software.� Occasional wrong word or��sound alike� substitutions may have occurred due to the inherent limitations of voice recognition software.
<Sarah Ulrich DO - Last Filed: 09/20/23 05:48>
ED Attending Note
Patient seen and examined by attending physician: Yes
I performed the substantive portion of visit, reviewed & personally made and approve the management plan that is documented in note by myself or DAMION.: Yes
I performed a history and physical exam of patient and discussed management with resident, I reviewed resident's note and agree with documented findings and plan of care.: Yes
ED Attending Note:
This is an 88-year-old gentleman who resides at home with his . He has history of moderate dementia, paroxysmal atrial fibrillation, myelodysplastic disorder with pancytopenia and was recently hospitalized here September 01 until September 04 after
suffering an acute change in mental status while sitting on the toilet passing a bowel movement. Episode was thought to be vasovagal in nature but he was also noted to have orthostatic hypotension, started on midodrine 5 mg twice daily as well as
recommended to use abdominal binder and LIANNE stockings. CT of the head and MRI showed no evidence of acute stroke. He was initially noted to have paroxysmal atrial fibrillation and cardiology recommended metoprolol tartrate 12.5 mg twice daily.
Due to chronic thrombocytopenia, dementia and history of falls recommended to hold off on anticoagulant. Could consider Watchman procedure in the future.
He had a follow-up appointment with cardiology yesterday, everything reportedly stable.
Since discharge to home on the , has been monitoring his blood pressure multiple times daily and states blood pressure has been well-controlled without recurrent episodes of hypotension. He did however develop a UTI September 09 with urinary
frequency, dysuria and his daughter who is a family practitioner dipped his urine at home which was positive for UTI. He was started on Cipro 250 mg twice daily and was able to secure a visit with urology, Dr. Pino as on , September 14.
Although patient has no prior history of UTIs nor prostatitis he was recommended to continue Cipro 250 mg twice daily for total of 3 weeks. He has had no return of UTI symptoms and has not had a fever. He does continue to get up often throughout
the night to void and generally summoned his to assist but tonight he called out to his and upon waking she found him on the side of the bed on his hands and knees with his head facing the bed. She did not hear a thud and she is unsure if
he just slipped out of bed versus became lightheaded. Patient cannot recall.
She was unable to help him up to a chair and upon EMS arrival he was noted to be hypotensive with initial blood pressure 80/40. IV established and IV normal saline bolus given prehospital.
He denies pain, denies headache, denies dizziness nor lightheadedness.
According to appetite has been good. He has been passing soft normal bowel movements. He has had no nausea nor vomiting.
GENERAL: 88-year-old gentleman appears his stated age, awake and alert, oriented x 2, answering simple questions appropriately, overall appears in no acute distress. Vital signs reviewed. Initial blood pressure 100/48. Afebrile.
EYE: Head is normocephalic, atraumatic, pupils equal and reactive. anicteric
NECK: Supple, nontender, no midline bony tenderness, full range of motion without difficulty nor pain, no meningismus, no significant adenopathy.
ENT: posterior pharynx is clear, oral mucosa is moist. TM clear b/l, nares patent.
CARDIAC: Regular rate and rhythm. no murmur.
LUNGS: Clear breath sounds bilaterally, no acute respiratory distress, no wheezes/rales/rhonchi
ABDOMEN: Rotund, soft, nondistended, without focal tenderness, no r/g, no cvat. normoactive BS.
BACK: No midline bony tenderness. No palpable bony pelvic tenderness.
NEUROLOGICAL: Alert and oriented x2, no focal neuro deficits. Motor strength is 5/5 bilaterally. Gross sensation is intact.
SKIN: Warm and dry, normal color, skin intact. No rash.
MUSCULOSKELETAL: No C/C/E. peripheral pulses are full and equal b/l. No palpable tenderness. Moderately restricted range of motion right shoulder which is chronic and unchanged according to the with history of advanced DJD of right shoulder.
There is no soft tissue swelling nor contusion about the right shoulder. Full range of motion of hips, knees without difficulty.
PSYCH: Normal and appropriate interaction.
Concern for mechanical fall versus syncope.
With recent UTI, hypotension, must also consider sepsis. Patient has myelodysplastic disorder, chronic pancytopenia thus at risk for immunocompromise.
Concern for recurrent arrhythmia/PAF versus PAT as cause for fall/syncope.
Patient has history of advanced dementia, history is limited, concern for occult head injury and with history of chronic thrombocytopenia will check CT of the head.
With current UTI current treatment with Cipro concern for acute kidney injury, arrhythmia.
Will check labs, EKG, shelter monitor, urinalysis and CT of the head.
09/20/[address] of the head shows no acute traumatic findings.
Labs show moderate but stable pancytopenia. Chemistries show mild uptrend in creatinine to 1.3. I suspect related to current Cipro therapy.
Normal lactic acid at 0.8.
Urinalysis is unremarkable.
He remains afebrile.
EKG shows sinus bradycardia, similar and unchanged from previous. Monitor continues to show sinus bradycardia without ectopy nor arrhythmia.
Patient has been given 1 L of IV fluids, continues to feel well.
Orthostatic vital signs are reassuring. Patient is asymptomatic while sitting and standing and eager to be discharged to home.
At this point I suspect mechanical fall as does his as she did not hear a thud, nearby walker, bedside table were not disturbed.
Discussed importance of staying well-hydrated on a daily basis especially while continuing Cipro.
Prompt follow-up with PCP/daughter as well as follow-up with cardiology and urology.
Return precautions discussed.
Discharge Plan
Departure
Patient Disposition: Home (Routine Discharge)
Date of Disposition: 09/20/23
Time of Disposition: 05:41
Patient with high blood pressure during this ER visit?: No
Condition: Good
Discharge Problem:
fall out of bed, Pancytopenia
Instructions: Preventing falls in adults
Prescriptions:
No Action
acetaminophen [Tylenol] 325 mg Tablet
650 mg PO Q6HPRN PRN (Reason: mild pain)
sertraline 100 mg Tablet
150 mg PO DAILY
therapeutic multivitamin Tablet
1 tab PO DAILY
metoprolol succinate 25 mg Tablet Extended Release 24 Hr
12.5 mg PO BID@1000,1400 Qty: 60 0RF
midodrine 5 mg Tablet
10 mg PO BID
lorazepam 0.5 mg Tablet
0.5 mg PO DAILY PRN (Reason: anxiety)
ciprofloxacin HCl [Cipro] 250 mg Tablet
250 mg PO BID
Referrals:
Anay Stewart DO [Family Provider] - Call in 1-3 days for appt
Activity Restrictions/Additional Instructions:
While taking Cipro I want you to stay very well-hydrated on a daily basis, drink plenty of water on a daily basis.
Continue current medications including twice daily midodrine, twice daily metoprolol.
Follow-up with your PCP/daughter as well as technical recruiter and urologist.
Do not attempt to get up out of bed or chair without assistance from your and continue to use walker while ambulating.
If you become dizzy or lightheaded or suffer recurrent falls, prompt return to the ER for further evaluation.
Interventions
Interventions:
*Risk Screen - Suicide Last Done: 09/20/23 00:54
*General Assessment Last Done: 09/20/23 00:54
*Neglect/Abuse Screening Last Done: 09/20/23 00:54
ED- Fall Risk Assessment Last Done: 09/20/23 00:54
*ED COVID-19 Vaccine History Last Done: 09/20/23 00:54
ED-Musculoskeletal Assessment Last Done: 09/20/23 01:07
ED- Neurological Assessment Last Done: 09/20/23 03:10
ED-Skin Assessment Last Done: 09/20/23 03:10
Discharge Date and Time
Print Language: UKRAINIAN
[2023-09-20 01:49] LABS: % Immature Granulocytes 0.5 % (0-0.5); % Lymphocytes 68.6 % (20.5-51.1); % Neutrophils 20.9 % (42.2-75.2); Absolute Lymphocytes 1.5 10^3/uL (1.2-3.4); Absolute Monocytes 0.2 10^3/uL (0.1-0.6); Hematocrit 33.3 % (39.0-52.0); Hemoglobin 10.8 g/dL (13.0-18.0); Mean Corp Hgb Conc. 32.4 g/dL (33.0-37.0); Mean Corpuscular Hgb 28.1 pg (27.0-31.0); Mean Corpuscular Volume 86.7 fL (80.0-94.0); Nucleated Red Blood Cells % 0 % (-); Platelet Count 44 10^3/uL (130-400); Red Blood Cell Count 3.84 10^6/uL (4.70-6.10); Red Cell Dist. Width 19.3 % (11.5-14.5)
[2023-09-20 01:53] LABS: White Blood Cell Count 2.2 10^3/uL (4.8-10.8)
[2023-09-20 02:06] LABS: ALT (SGPT) 11 U/L (0-50); AST (SGOT) 21 U/L (17-59); Albumin 3.6 g/dl (3.5-5.0); Alkaline Phosphatase 100 U/L (38-126); Blood Urea Nitrogen 21 mg/dl (9-20); Calcium 8.8 mg/dl (8.4-10.2); Carbon Dioxide 27 mmol/L (22-30); Chloride 105 mmol/L (98-107); Estimated Creatinine Clearance 42 ml/min; Glucose 128 mg/dl (70-99); Potassium 4.5 mmol/L (3.5-5.1); Sodium 138 mmol/L (135-145); Total Bilirubin 0.8 mg/dl (0.2-1.3); Total Protein 6.2 g/dl (6.3-8.2)
[2023-09-20 02:07] LABS: Lactic Acid 0.8 mmol/L (0.7-2.0)
[2023-09-20] MEDS: TYLENOL 1000 MG PO (02:27)
[2023-09-20] MEDS: NSS 1000 IV (02:33)
[2023-09-20 02:46] LABS: Absolute Neutrophils 0.5 10^3/uL (1.4-6.5); Anisocytosis 1+; Normal RBC Morphology No; Ovalocytes 1+; Troponin I < 0.012 ng/ml
[2023-09-20 02:47] LABS: Target Cells 1+; Tear Drop Red Blood Cells Occasional
[2023-09-20 05:03] LABS: Urine Albumin Negative (Neg - Trace); Urine Bilirubin Negative (Negative); Urine Character Clear (Clear); Urine Color Amber; Urine Glucose Negative (Negative); Urine Ketone Trace (Negative); Urine Leukocyte Negative (Negative); Urine Nitrite Negative (Negative); Urine Occult Blood Negative (Negative); Urine Specific Gravity 1.025 (<1.030); Urine Urobilinogen Negative (Neg - 1+)
== END 2023-09-20 05:50 | disposition home or self-care (01) ==
LOC: EMR 00:52
PROVIDERS: EMERGENCY PHYSICIAN Emergency Medicine; FAMILY PHYSICIAN Family Medicine
DX: D61.818 Other pancytopenia (principal); W06.XXXA Fall from bed, initial encounter; F03.B0 Unspecified dementia, moderate, without behavioral disturbance, psychotic disturbance, mood disturbance, and anxiety; I48.0 Paroxysmal atrial fibrillation; Z96.641 Presence of right artificial hip joint
CPT/HCPCS: 99285; 96360; 70450; 80053; 81003; 83605; 84484; 85025; 93005

== ENCOUNTER 2023-09-30 03:26 | Observation (INO) | payer MEDICARE, BC, SELFPAY ==
[2023-09-29 20:54] VITALS: BMI 27.9
[2023-09-29 20:55] VITALS: BP 139/60
[2023-09-29 21:02] VITALS: BP 137/61
[2023-09-29 21:18] VITALS: BP 155/67
[2023-09-29 21:27] LABS: Urine Albumin Trace (Neg - Trace); Urine Bilirubin 1+ (Negative); Urine Character Clear (Clear); Urine Color Yellow; Urine Glucose Negative (Negative); Urine Ketone Negative (Negative); Urine Leukocyte Negative (Negative); Urine Nitrite Negative (Negative); Urine Occult Blood 3+ (Negative); Urine Specific Gravity 1.015 (<1.030); Urine Urobilinogen Negative (Neg - 1+)
[2023-09-29 21:28] LABS: % Basophils 0.4 % (0-2); % Immature Granulocytes 0.4 % (0-0.5); % Lymphocytes 61.5 % (20.5-51.1); % Monocytes 18.4 % (1.7-9.3); % Neutrophils 19.3 % (42.2-75.2); Absolute Lymphocytes 1.5 10^3/uL (1.2-3.4); Absolute Monocytes 0.5 10^3/uL (0.1-0.6); Hematocrit 32.6 % (39.0-52.0); Hemoglobin 10.4 g/dL (13.0-18.0); Mean Corp Hgb Conc. 31.9 g/dL (33.0-37.0); Mean Corpuscular Hgb 27.2 pg (27.0-31.0); Mean Corpuscular Volume 85.1 fL (80.0-94.0); Nucleated Red Blood Cells % 0.8 % (-); Platelet Count 59 10^3/uL (130-400); Red Blood Cell Count 3.83 10^6/uL (4.70-6.10); Red Cell Dist. Width 19.6 % (11.5-14.5)
[2023-09-29 21:43] LABS: Urine Bacteria Moderate (Negative); Urine Mucus Moderate; Urine Red Blood Cell 26-30 /HPF (0-2); Urine White Cell 0-2 /HPF (0-5)
[2023-09-29 21:47] LABS: Absolute Neutrophils 0.5 10^3/uL (1.4-6.5); White Blood Cell Count 2.4 10^3/uL (4.8-10.8)
[2023-09-29 21:48] LABS: ALT (SGPT) 15 U/L (0-50); AST (SGOT) 31 U/L (17-59); Alkaline Phosphatase 113 U/L (38-126); Blood Urea Nitrogen 22 mg/dl (9-20); Calcium 9.3 mg/dl (8.4-10.2); Carbon Dioxide 25 mmol/L (22-30); Chloride 103 mmol/L (98-107); Estimated Creatinine Clearance 48 ml/min; Glucose 125 mg/dl (70-99); Potassium 4.4 mmol/L (3.5-5.1); Sodium 135 mmol/L (135-145); Total Bilirubin 0.9 mg/dl (0.2-1.3); Total Protein 6.5 g/dl (6.3-8.2); eGFR > 60.00
[2023-09-29 22:00] VITALS: BP 134/56
--- NOTE | 2023-09-29 22:14 | ED.GENMED ---
History of Present Illness
<CAMI Anand - Last Filed: 09/30/23 05:55>
General
Chief Complaint: Change in Mental Status
Source: significant other and family
Exam Limitations: altered mental status and dementia
Time Seen by Provider: 09/29/23 22:09
Nursing documentation reviewed up to this point in time: agreed with
History of Present Illness
History of Present Illness:
88 year old male presenting for evaluation of change in mental status. reports that pt awoke this afternoon and was unable to recount her name. He was also disoriented to place and time, and was unable to form words. Of note, pt is being
treated for a UTI diagnosed approximately 3 weeks ago per . Pt's states that pt has two days of antibiotic treatment remaining.
If applicable-neuro sx onset
Date of onset of symptoms: 09/29/23
Past History
<CAMI Anand - Last Filed: 09/30/23 05:55>
Past History
ED Past Medical History: Arrthythmia and Other (Dementia, myelodysplasia, orthostatic hypotension); Negative Seizures
ED Past Surgical History: Orthopedic (Lumbosacral decompression x 4, right THR)
Social History
Tobacco: Non-smoker
Alcohol: None
Drug: None
Personal:
Living: with family
Employment: Retired
Family History
Family History: Other (Reviewed and noncontributory)
Review of Systems
<CAMI Anand - Last Filed: 09/30/23 05:55>
Review of Systems
Allergies reviewed?: Yes
Unable to obtain full review of systems at this time due to: dementia
Other source history: family
Constitutional: Reports no symptoms
EENT: Reports no symptoms
Respiratory: Reports no symptoms
Cardiac: Reports no symptoms
ABD/GI: Reports no symptoms
: Reports no symptoms
Musculoskeletal: Reports no symptoms
Skin: Reports no symptoms
Neurological: Reports other (disoriented)
Endocrine: Reports no symptoms
Hematologic/Lymphatic: Reports no symptoms
Psychiatric: Reports no symptoms
Phy Exam
<Rivas Handley [facility] - Last Filed: 09/30/23 05:55>
General Physical Exam
General Presentation: well appearing
General age: appears stated age
General Skin: warm
General Habitus: elderly
General Mental: confused and other (AAOx1)
General Hydration: appears well hydrated
ENT Exam
ENT Exam: EOMI and normocephalic
Eye Exam
Eye Exam: PERRL and EOMI
Cardiovascular Exam
Cardiovascular Exam: regular rate/rhythm
Pulmonary Exam
Pulmonary Exam: lungs clear and no respiratory distress
Neurological Exam
Neurological Exam: confused, slurred speech and other (AAOx1)
Alteplase Contraindication
Reasons for NON-Treatment with Thrombolytics: Platelet count < 100,000
Mental
Mental Status: oriented to person and confused
Course
<Rivas Handley [facility] - Last Filed: 09/30/23 05:55>
Orders/Labs/Results
Orders:
Orders
09/29/23 21:04
Complete Blood Count/With Diff Urgent
Comprehensive Metabolic Panel Urgent
Urinalysis Reflex To Culture Urgent
Date Specimen was Collected: 09/29/23
Time Specimen was Collected: 21:02
Urine Microscopic Reflex Cult Urgent
Blood Culture Urgent
EMMANUELLE Source: Blood/Venous
Specimen Description:
Urine Culture Urgent
EMMANUELLE Source: U
Specimen Description:
Date Specimen was Collected: 09/29/23
Time Specimen was Collected: 21:02
09/29/23 22:31
CT Head W/o Iv Contrast Urgent
Comment:
Reason For Exam: confusion
09/30/23 00:59
CefTRIAXone [Rocephin] 1,000 mg IV NOW STA
09/30/23 01:00
0.9% Sodium Chloride 1000 ml [Nss] 1,000 ml IV 250 mls/hr
09/30/23 01:27
Sterile Water [Sterile Water For Injection] 10 ml .ROUTE .[facility]
09/30/23 03:04
Admit/Transfer Patient As Directed
Co-Sign Provider:
Level of Care: Observation services
Assign to:: Telemetry
Physician / Group: Nixon
Diagnosis: Expressive Aphasia, Acute TME
Reason for Telemetry: CVA/TIA
Date to Stop Telemetry: 10/03/23
Time to Stop Telemetry: 11:00
09/30/23 03:06
Code Status As Directed
Resuscitation Status: Full Code
09/30/23 04:35
Acetaminophen [Tylenol] 650 mg PO Q4HPRN PRN
Quetiapine Fumarate [Seroquel] 12.5 mg PO BIDPRN PRN
09/30/23 04:35
Consult Notification Routine
Specialty to Notify: Neurology
NEUROLOGY CONSULT Routine
Consulting Provider: Pranay Up
Was physician already notified: No
Reason for consult: AMS, CVA v Dementia
Activity As Directed
Activity Level: Ambulate
With Assistance
Bladder Scan As Directed
Follow Bladder Retention/Intermittent Cath Algorithm?: Yes
PRN if no void in __ hours: 6
Frequency: Per Retention Algorithm
If Bladder Scan Result >: 400
then:: Straight cath
EKG with chest pain [ECG as needed] As Directed
ECG as needed for:: Chest Pain
I/O [Intake/ Output] As Directed
Frequency: Per unit guidelines
Neurological Checks As Directed
Frequency: q4h
Orthostatic Vital Signs As Directed
Orthostatic VS Frequency: BID
Pneumatic Compression Sleeves As Directed
Type: Knee high
Straight Cath As Directed
Frequency: Per Retention Algorithm
Additional Instructions: straight cath as needed per acute urinary retention algorithm for 24 hrs
Additional Instructions: for bladder scan greater than 400 mL
Vital Signs As Directed
Frequency: Per unit guidelines
Weight As Directed
Frequency: Daily
Oxygen Therapy [O2 Therapy] [RESP] Routine
Titrate/Wean O2 to maintain O2 sat greater than (%): 94
Ot Eval And Treat Routine
PT Consult [Pt Eval And Treat] Routine
Activity Level: Ambulate
With Assistance
Speech Therapy Eval & Treat Routine
DX Deep Vein Thrombosis Video Routine
09/30/23 06:00
Basic Metabolic Panel IN AM
Complete Blood Count/No Diff IN AM
MR Brain Without Contrast IN AM
Comment:
Reason For Exam: CVA / TIA
Recent pill cam endoscopy?: No
09/30/23 08:00
Aspirin Chewable [Low Strength Aspirin] 81 mg PO DAILY
Sertraline HCl [Zoloft] 150 mg PO DAILY
09/30/23 09:00
Midodrine [ProAmatine] 10 mg PO BID@0900,1300
09/30/23 11:00
Metoprolol Xl [Toprol Xl] 12.5 mg PO BID@1100,1500
10/01/23 Breakfast
Regular
At Your Request: Non-Participating
10/03/23 11:00
DC Protocol for Telemetry ONCE
Abnormal Lab Results
09/29/23
21:04
WBC 2.4 L* 10^3/uL
(4.8-10.8)
RBC 3.83 L 10^6/uL
(4.70-6.10)
Hgb 10.4 L g/dL
(13.0-18.0)
Hct 32.6 L %
(39.0-52.0)
MCHC 31.9 L g/dL
(33.0-37.0)
RDW 19.6 H %
(11.5-14.5)
Plt Count 59 L 10^3/uL
(130-400)
Absolute Neuts (auto) 0.5 L* 10^3/uL
(1.4-6.5)
Neutrophils % 19.3 L %
(42.2-75.2)
Lymphocytes % 61.5 H %
(20.5-51.1)
Monocytes % 18.4 H %
(1.7-9.3)
BUN 22 H mg/dl
(9-20)
Glucose 125 H mg/dl
(70-99)
Ur Occult Blood Reflex 3+ A
(Negative)
Urine Bilirubin 1+ A
(Negative)
Urine RBC 26-30 A /HPF
(0-2)
Urine Bacteria (Reflex) Moderate A
(Negative)
09/29/23 21:04
09/29/23 21:04
Vital Signs
Initial and Last Documented VS:
Initial Vital Signs
Temp Pulse Resp BP
99 F 63 17 139/60
09/29/23 20:55 09/29/23 20:55 09/29/23 20:55 09/29/23 20:55
Last Documented Vital Signs
Temp Pulse Resp BP Pulse Ox
99.4 F 73 20 138/67 97
09/30/23 04:34 09/30/23 04:34 09/30/23 04:34 09/30/23 04:34 09/30/23 04:34
<Pop Hoffman, - Last Filed: 09/30/23 00:58>
Orders/Labs/Results
Orders:
Orders
09/29/23 21:04
Complete Blood Count/With Diff Urgent
Comprehensive Metabolic Panel Urgent
Urinalysis Reflex To Culture Urgent
Date Specimen was Collected: 09/29/23
Time Specimen was Collected: 21:02
Urine Microscopic Reflex Cult Urgent
Blood Culture Urgent
EMMANUELLE Source: Blood/Venous
Specimen Description:
Urine Culture Urgent
EMMANUELLE Source: U
Specimen Description:
Date Specimen was Collected: 09/29/23
Time Specimen was Collected: 21:02
09/29/23 22:31
CT Head W/o Iv Contrast Urgent
Comment:
Reason For Exam: confusion
09/30/23 00:59
CefTRIAXone [Rocephin] 1,000 mg IV NOW STA
09/30/23 01:00
0.9% Sodium Chloride 1000 ml [Nss] 1,000 ml IV 250 mls/hr
09/30/23 01:27
Sterile Water [Sterile Water For Injection] 10 ml .ROUTE .[facility]
09/30/23 03:04
Admit/Transfer Patient As Directed
Co-Sign Provider:
Level of Care: Observation services
Assign to:: Telemetry
Physician / Group: Nixon
Diagnosis: Expressive Aphasia, Acute TME
Reason for Telemetry: CVA/TIA
Date to Stop Telemetry: 10/03/23
Time to Stop Telemetry: 11:00
09/30/23 03:06
Code Status As Directed
Resuscitation Status: Full Code
09/30/23 04:35
Acetaminophen [Tylenol] 650 mg PO Q4HPRN PRN
Quetiapine Fumarate [Seroquel] 12.5 mg PO BIDPRN PRN
09/30/23 04:35
Consult Notification Routine
Specialty to Notify: Neurology
NEUROLOGY CONSULT Routine
Consulting Provider: Jeovanny,Pranay
Was physician already notified: No
Reason for consult: AMS, CVA v Dementia
Activity As Directed
Activity Level: Ambulate
With Assistance
Bladder Scan As Directed
Follow Bladder Retention/Intermittent Cath Algorithm?: Yes
PRN if no void in __ hours: 6
Frequency: Per Retention Algorithm
If Bladder Scan Result >: 400
then:: Straight cath
EKG with chest pain [ECG as needed] As Directed
ECG as needed for:: Chest Pain
I/O [Intake/ Output] As Directed
Frequency: Per unit guidelines
Neurological Checks As Directed
Frequency: q4h
Orthostatic Vital Signs As Directed
Orthostatic VS Frequency: BID
Pneumatic Compression Sleeves As Directed
Type: Knee high
Straight Cath As Directed
Frequency: Per Retention Algorithm
Additional Instructions: straight cath as needed per acute urinary retention algorithm for 24 hrs
Additional Instructions: for bladder scan greater than 400 mL
Vital Signs As Directed
Frequency: Per unit guidelines
Weight As Directed
Frequency: Daily
Oxygen Therapy [O2 Therapy] [RESP] Routine
Titrate/Wean O2 to maintain O2 sat greater than (%): 94
Ot Eval And Treat Routine
PT Consult [Pt Eval And Treat] Routine
Activity Level: Ambulate
With Assistance
Speech Therapy Eval & Treat Routine
DX Deep Vein Thrombosis Video Routine
09/30/23 06:00
Basic Metabolic Panel IN AM
Complete Blood Count/No Diff IN AM
MR Brain Without Contrast IN AM
Comment:
Reason For Exam: CVA / TIA
Recent pill cam endoscopy?: No
09/30/23 08:00
Aspirin Chewable [Low Strength Aspirin] 81 mg PO DAILY
Sertraline HCl [Zoloft] 150 mg PO DAILY
09/30/23 09:00
Midodrine [ProAmatine] 10 mg PO BID@0900,1300
09/30/23 11:00
Metoprolol Xl [Toprol Xl] 12.5 mg PO BID@1100,1500
10/01/23 Breakfast
Regular
At Your Request: Non-Participating
10/03/23 11:00
DC Protocol for Telemetry ONCE
Abnormal Lab Results
09/29/23
21:04
WBC 2.4 L* 10^3/uL
(4.8-10.8)
RBC 3.83 L 10^6/uL
(4.70-6.10)
Hgb 10.4 L g/dL
(13.0-18.0)
Hct 32.6 L %
(39.0-52.0)
MCHC 31.9 L g/dL
(33.0-37.0)
RDW 19.6 H %
(11.5-14.5)
Plt Count 59 L 10^3/uL
(130-400)
Absolute Neuts (auto) 0.5 L* 10^3/uL
(1.4-6.5)
Neutrophils % 19.3 L %
(42.2-75.2)
Lymphocytes % 61.5 H %
(20.5-51.1)
Monocytes % 18.4 H %
(1.7-9.3)
BUN 22 H mg/dl
(9-20)
Glucose 125 H mg/dl
(70-99)
Ur Occult Blood Reflex 3+ A
(Negative)
Urine Bilirubin 1+ A
(Negative)
Urine RBC 26-30 A /HPF
(0-2)
Urine Bacteria (Reflex) Moderate A
(Negative)
09/29/23 21:04
09/29/23 21:04
Vital Signs
Initial and Last Documented VS:
Initial Vital Signs
Temp Pulse Resp BP
99 F 63 17 139/60
09/29/23 20:55 09/29/23 20:55 09/29/23 20:55 09/29/23 20:55
Last Documented Vital Signs
Temp Pulse Resp BP Pulse Ox
99.4 F 73 20 138/67 97
09/30/23 04:34 09/30/23 04:34 09/30/23 04:34 09/30/23 04:34 09/30/23 04:34
<CAMI Anand - Last Filed: 09/30/23 05:55>
MDM/Problems Addressed
Differential Diagnosis Includes:
CVA, TIA, UTI.
MDM/Problems Addressed:
CT head w/o IV contrast
Complete Blood Count/With Diff
Comprehensive Metabolic Panel
Urinalysis Reflex To Culture
Urine Microscopic Reflex Cult
Blood Culture
Urine Culture
<CAMI Anand - Last Filed: 09/30/23 05:55>
*Critical Care Note
Total Time (30-74mins, 75-104mins- exclusive of procedures): Not Applicable
<CAMI Anand - Last Filed: 09/30/23 05:55>
Update Note
Update Note:
No change in mental status, CT normal.
ED Attending Note
<CAMI Anand - Last Filed: 09/30/23 05:55>
-
Portions of this chart may have been created with voice recognition software.� Occasional wrong word or��sound alike� substitutions may have occurred due to the inherent limitations of voice recognition software.
<Pop Hoffman DO - Last Filed: 09/30/23 00:58>
ED Attending Note
Patient seen and examined by attending physician: Yes
I performed the substantive portion of visit, reviewed & personally made and approve the management plan that is documented in note by myself or DAMION.: Yes
ED Attending Note:
Pleasant 88-year-old male resident of the dementia unit at [facility] that presents with acute change in mentation according to his . states that she left him at 3 PM today and he was at his baseline. Patient took a nap and awakened with a
discrete change in mentation. 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 His daughter is also a family physician who treated him for UTI 3 weeks ago[address] Patient saw Dr. Pino several days later and was advised to start 3 weeks of
antibiotics, which is ending this Tuesday. Patient has had frequent urinary tract infections.
Vital signs are stable. Patient not hypoxic
Nursing note reviewed. I agree with nursing documentation up to this point in time.
Home Meds and allergies reviewed.
NUMBER AND COMPLEXITY OF PROBLEMS ADDRESSED AT THE ENCOUNTER
� Chronic conditions affecting care: Dementia
� Acute Exacerbation and/or Progression of Chronic Illness: Dementia, UTI which is subacute
� Differential Diagnosis includes: TIA, dementia exacerbation, UTI
AMOUNT AND/OR COMPLEXITY OF DATA TO BE REVIEWED AND ANALYZED
I performed an independent evaluation of the following and my interpretation is:
EKG:
CT: Head IMPRESSION:
No acute intracranial abnormality noted.
X-rays:
Ultrasound:
Laboratory Studies: 2.4 white blood cell count which is similar to previous
Other:
Review of other/old records:
Clinical information was obtained by an independent historian:
Prescriptions/Medications Considered but not given:
Further testing considered but not performed:
RISK OF COMPLICATIONS AND/OR MORBIDITY OR MORTALITY OF PATIENT MANAGEMENT
Social determinants of health affecting care: Good Social Support
Discussion with other providers:
Escalation of care including admission/observation vs risk of discharge considered: Given the patient's acute change in mental status, I feel that continued observation would be warranted in this situation
CRITICAL CARE NOTE: Not applicable
Total Time (exclusive of procedures):
Update:
Discharge Plan
Departure
Patient Disposition: Admit
Date of Disposition: 09/30/23
Time of Disposition: 00:53
Admit to: Med/Surg
Presentation/result/management discussed w/ accepting MD/DO: Hospitalist
Condition: Good
Discharge Problem:
Dementia, tia vs cva, Acute alteration in mental status
Interventions
Interventions:
*Risk Screen - Suicide Last Done: 09/29/23 20:55
*General Assessment Last Done: 09/29/23 20:55
*Neglect/Abuse Screening Last Done: 09/29/23 20:55
ED- Fall Risk Assessment Last Done: 09/30/23 04:10
*ED COVID-19 Vaccine History Last Done: 09/30/23 04:10
*Nursing Disposition Last Done: 09/30/23 04:10
ED- Pulmonary Assessment Last Done: 09/29/23 23:15
ED-Psychological Assessment Last Done: 09/30/23 04:10
ED- Neurological Assessment Last Done: 09/29/23 23:15
ED- Cardiac Assessment Last Done: 09/29/23 23:15
ED Swallowing Screen Last Done: 09/30/23 03:55
Discharge Date and Time
Discharge Date/Time: 09/30/23 04:10
[2023-09-29 23:20] VITALS: BP 128/65
[2023-09-30] VITALS (12 sets, daily range): BP systolic 116–159; BP diastolic 51–75; PULSE 69; O2SAT 96; BMI 27.7
[2023-09-30] MEDS: NSS 1000 IV (01:15)
[2023-09-30] MEDS: ROCEPHIN 1000 MG IV (01:42)
--- NOTE | 2023-09-30 03:10 | HPS.HSE ---
Family Physician
-
Family Physician: Anay Stewart
Chief Complaint
-
Change in Mental Status / Confusion
History of Present Illness
Patient is an 88y M with PMH significant for dementia, MDS and A-Fib who presents to ED for evaluation of mental status change. History obtained primarily from family at the bedside given patient's degree of dementia. Patient was taking a nap
this afternoon. When he woke, he seemed more confused. He did not seem to recognize his . He could state neither her name nor his own name. He seemed to have difficulty with speech with rambling, nonsensical speech pattern. No dysarthria /
slurring. No apparent limb weakness or ataxia.
Patient Seemed to improve somewhat by the time EMS arrived, but was still not at his known baseline.
Of note: patient is nearly complete with 3 weeks of ciprofloxacin for suspected urinary infection. He has chronic incontinence - but no other specific symptoms.
Medical History
Past Medical History
Past Medical History: Reports Other
Additional Past Medical History:
MDS
Paroxysmal A-Fib / Paroxysmal Atrial Tachycardia
Senile Dementia
Orthostatic Hypotension
Past Surgical History: Reports Other
Additional Past Surgical History:
Bilateral JOSELINE
Lumbar Surgery
Right Shoulder Surgery
Social History
Tobacco: Non-smoker
Alcohol: Occasional
Drug: None
Personal:
Living: With Family
Family History
Family History: Not pertinent
Allergies / Home Medications
Allergies reflects when Allergies were last updated in [facility].
Home Medications with original date entered in [facility]
Allergy/Medication List:
Allergies
Allergy/AdvReac Type Severity Reaction Status Date / Time
latex Allergy Intermediate Rash Verified 09/29/23 21:01
Home Medications
sertraline 100 mg tablet 150 mg PO DAILY Mental Health 09/02/23
therapeutic multivitamin 1 tab PO DAILY Supplement 09/02/23
lorazepam 0.5 mg tablet 0.5 mg PO BIDPRN PRN anxiety 09/20/23
acetaminophen 500 mg tablet 1,000 mg PO Q6HPRN PRN mild pain/fever 09/29/23
ciprofloxacin HCl 500 mg tablet 250 mg PO BID 09/29/23
loperamide 2 mg capsule 2 mg PO Q4HPRN PRN diarrhea 09/29/23
metoprolol succinate 25 mg tablet,extended release 24 hr 12.5 mg PO BID@1100,1500 09/29/23
midodrine 10 mg tablet 10 mg PO BID@0900,1300 09/29/23
Review of Systems
-
History Source: Patient and Family
A 12 point ROS was completed and negative except as noted: Yes
Constitutional: Denies Fever or Chills
Respiratory: Denies Cough or Trouble Breathing
Cardiac: Denies Chest Pain or Palpitations
Abdomen/GI: Denies Abdominal Pain, Nausea, Vomiting or Diarrhea
: Reports Incontinence
Musculoskeletal: Reports Joint Pain (Bilateral shoulder pain.); Denies Edema
Neurological: Denies Dizzy or Headache
Psych: Denies Depression or Anxiety
Physical Exam
Vital Signs
Vital Signs
Temp Pulse Resp BP
99 F 65 13 129/59
09/29/23 20:55 09/30/23 02:15 09/30/23 02:15 09/30/23 02:00
Physical Exam
General: Other (88y M in no acute distress.)
HEENT: Moist mucous membranes and PERRLA
Respiratory: Clear; No Wheezes, Rales or Rhonchi
Cardiac: S1/S2 and Regular Rhythm; No Murmur
GI: Soft, Non Distended and Normal Bowel Sounds
Genito-urinary: Other (Pos suprapubic tenderness.)
Musculoskeletal: No Clubbing, No Cyanosis and Other (RLE 1+ ankle edema (chronic per ).)
Neuro: Awake, Alert and Other (No focal weakness or ataxia appreciated. Answers Y/N questions appropriately. Open ended questions result in rambling, nonsensical speech.); No Oriented
Laboratory Results
-
09/29/23 21:04
09/29/23 21:04
Laboratory Results
Total Bilirubin 0.9 mg/dl (0.2-1.3) 09/29/23 21:04
AST 31 U/L (17-59) 09/29/23 21:04
ALT 15 U/L (0-50) 09/29/23 21:04
Alkaline Phosphatase 113 U/L (38-126) 09/29/23 21:04
Impression/Plan
-
A/P: Patient is an 88y M with PMH significant for dementia and A-Fib who presents to ED for evaluation of worsening confusion.
Speech Difficulty / Confusion
- Observe overnight for further evaluation and treatment.
- ? expressive aphasia / speech difficulty versus more cognitive / confusion issue?
- CT head unremarkable.
- Daily ASA for now.
- Check MRI brain in AM.
- Follow neuro exams overnight for any changes.
- Neuro evaluation for additional recommendations.
BPH
Questionable UTI
- UA today and previously here has been unremarkable.
- No positive culture data inpatient or outpatient as patient started on abx prior to culture.
- Completed nearly 3 weeks of Cipro (2 days remaining).
- Hold on any further abx for now.
- Follow up culture data, fever curve, etc.
- Bladder scan protocol to rule out retention / straight cath if needed.
Paroxysmal Atrial Tachycardia / Atrial Fibrillation
- Stable. Continue metoprolol.
- Not on OAC given fall / bleed risk.
Orthostatic Hypotension
- Continue midodrine.
- Follow orthostatic signs during stay.
MDS
- Stable. Abnormal cell counts all appear unchanged from known baseline.
- No evidence of any active bleeding, etc.
- Follow for changes in cell counts.
Senile Dementia with Behavioral Disturbance
- Seems very possible that recent issues reflect progression of disease rather than UTI or other more acute process.
- Try to eliminate BZD dosing - trial of Seroquel for anxiety.
- Continue usual Zoloft.
- Risk for acute delirium / decompensation during hospital stay.
DVT Prophylaxis: SCDs
Code Status: Full
[2023-09-30 07:05] LABS: Hematocrit 31.2 % (39.0-52.0); Mean Corp Hgb Conc. 32.1 g/dL (33.0-37.0); Mean Corpuscular Hgb 27.4 pg (27.0-31.0); Mean Corpuscular Volume 85.5 fL (80.0-94.0); Platelet Count 47 10^3/uL (130-400); Red Blood Cell Count 3.65 10^6/uL (4.70-6.10); Red Cell Dist. Width 19.3 % (11.5-14.5); White Blood Cell Count 1.8 10^3/uL (4.8-10.8)
[2023-09-30 07:27] LABS: Blood Urea Nitrogen 18 mg/dl (9-20); Calcium 8.6 mg/dl (8.4-10.2); Carbon Dioxide 23 mmol/L (22-30); Chloride 104 mmol/L (98-107); Estimated Creatinine Clearance 59 ml/min; Glucose 106 mg/dl (70-99); Potassium 4.1 mmol/L (3.5-5.1); Sodium 133 mmol/L (135-145); eGFR > 60.00
[2023-09-30] MEDS: ProAmatine 10 MG PO ×2 (09:15→13:06)
[2023-09-30] MEDS: LOW STRENGTH ASPIRIN 81 MG PO (09:15)
[2023-09-30] MEDS: ZOLOFT 150 MG PO (09:15)
[2023-09-30] MEDS: TOPROL XL 12.5 MG PO ×2 (11:41→16:31)
--- NOTE | 2023-09-30 13:21 | W.PN.HOSP.TC ---
Today's Communication/Plan
-
MRI brain
await neuro input
CT ab/pelvis
await urology input
Assessment / Plan
Assessment / Plan
pt is an 88 year old male
Speech Difficulty / Confusion--? expressive aphasia / speech difficulty versus more cognitive / confusion issue?-CT head unremarkable-Daily ASA for now--MRI brain in AM- -Follow neuro exams overnight for any change---Neuro evaluation for additional
recommendations.
BPH--Questionable UTI--nursing reports passing clots--consult urology--culture pending--completed 3 weeks cipro (from PCP, his daughter)-- UA today and previously here has been unremarkable- No positive culture data inpatient or outpatient as
patient started on abx prior to culture-- Bladder scan protocol to rule out retention / straight cath if needed--CT scan without contrast
Paroxysmal Atrial Tachycardia / Atrial Fibrillation - Stable. Continue metoprolol - Not on OAC given fall / bleed risk.
Orthostatic Hypotension - Continue midodrine- Follow orthostatic signs during stay.
MDS with pancytopenia- Stable. Abnormal cell counts all appear unchanged from known baseline- No evidence of any active bleeding, etc.
Senile Dementia with Behavioral Disturbance- Seems very possible that recent issues reflect progression of disease rather than UTI or other more acute process- Try to eliminate BZD dosing - trial of Seroquel for anxiety - Continue usual Zoloft- Risk
for acute delirium / decompensation during hospital stay
left shoulder pain--tender at biceps insertion point--consider trial of steroids (but might make confusion worse...) consider ortho consult for possible steroid injection
DVT Prophylaxis: SCDs
Code Status: Full
Anticipated Discharge: 24 - 48 hours
Subjective/Interval History
-
Date of Service: September 30, 2023
pt very confused?, word finding issues
Objective Data
-
Labs:
Laboratory Results
09/30/23
06:40
WBC 1.8 L*
Hgb 10.0 L
Hct 31.2 L
Plt Count 47 L D
Sodium 133 L
Potassium 4.1
Chloride 104
Carbon Dioxide 23
BUN 18
Creatinine 0.9
Glucose 106 H
Calcium 8.6
Vital Signs:
max temp for 24 hours
09/30/23
04:34
Temp 99.4 F
Vital Signs
Temp Pulse Resp BP Pulse Ox
98.8 F 65 16 135/60 97
09/30/23 11:30 09/30/23 13:06 09/30/23 11:30 09/30/23 13:06 09/30/23 11:30
Review of Systems
-
Unable to obtain full review of systems at this time due to: Dementia (aphasic)
Physical Exam
-
General: Well Developed, Well Nourished and No Apparent Distress
HEENT: Normocephalic and Atraumatic
Respiratory: Clear to Auscultation; Negative Wheezes or Rhonchi
Cardiac: Regular Rhythm and S1/S2; Negative Murmur
GI: Soft, Nontender, Nondistended and Normal Bowel Sounds
Musculoskeletal: No Clubbing, No Cyanosis, No Edema and Other (point tenderness to bicep insertion left shoulder)
Neuro: Awake
Psych: Calm
--- NOTE | 2023-09-30 14:40 | CM ---
Reviewed chart, placed a call to patient's to obtain information for assessment. Patient lives with her in a [place] and [place] community with two steps to enter. Patient is dependent with ADLs, personal care, bathing and dressing. He has caregivers:
Tuesday 10-2, Tuesday-, -, Tuesday- and 12-05. Patient's also confirmed that she can assist with his ADLs. 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 Patient's drives and can get patient to
all of his appointments and does the shopping.
Patient uses a walker to assist with his ambulation. He also has a shower chair. He is incontinent of bowel and bladder.
Patient is current with [facility] through [facility]. Will send a resumption of care referral.
Patient was in acute rehab two years ago at [facility] but has never been to a SNF.
Patient has a prescription plan and uses, [facility] pharmacy in [place] for all of his medications.
His PCP is, Anay Stewart. (Daughter).
Patient's would like resumption of care through [facility] and assistance.
Plan: Case management will continue to follow and assist with discharge planning. Patient's wants patient to return home when stable.
--- NOTE | 2023-09-30 15:05 | CON.NEURO4 ---
Consultation - Neurology 4
-
CONSULTING PHYSICIAN: Pranay Up MD
REFERRING PHYSICIAN: Hospitalist
DICTATED BY: Pranay Up MD
DATE/TIME OF REQUEST: 09/30/2023
DATE/TIME OF CONSULTATION: 09/30/2023
Reason for Consultation: AMS
History of Present Illness:
This is a 88 year old right handed male who has presented to the hospital with altered mental status. He gives a h/o dementia since 2022, MDS and A-Fib who presents to ER for evaluation of mental status change. History obtained primarily from
at the bedside given patient's dementia. Patient was taking a nap this afternoon. When he woke, he seemed more confused. He did not seem to recognize his . He could state neither her name nor his own name. He seemed to have difficulty with
speech with rambling, nonsensical speech pattern. No dysarthria / slurring. No apparent limb weakness or ataxia.
Patient Seemed to improve somewhat by the time EMS arrived, but was still not at his known baseline.
Of note: patient is nearly complete with 3 weeks of ciprofloxacin for suspected urinary infection. He has chronic incontinence - but no other specific symptoms.
At the time of my exam pat speech was tangible and incomprehensible
No focal weakness
Past Medical History: Dementia
Surgical History: Hip replacement
Family History: Noncontributory
Social History: lives at home with his
Allergies: Latex
Home Medications: Cipro, Metoprolol, Zoloft
Review of Symptoms:
Patient denies any fever, headache, chest pain, shortness of breath, GI or symptoms.
�Per the HPI.�All systems are reviewed negative except above.
�-
Vital Signs: Temp 37.1 C Pulse 65 Resp 16 BP 135/60 Pulse Ox 97
Physical Exam:
The patient is afebrile, heart sounds S1 and S2 are well heard with irregular rhythm, and chest is clear to auscultation bilaterally.
- If not clear, describe.
Neurologic Examination:
The patient is awake, confused and oriented x person and place. He is unable to follow commands or answer questions. There is aphasia and dysarthria.
On cranial nerve assessment, pupils are 3 mm bilateral, round and reactive to light and accommodation. Visual zhang are full. Extraocular movements are intact. Facial sensations are intact and bilaterally symmetrical, there is no facial asymmetry.
Hearing is intact bilaterally to normal conversation volume. Tongue palate and uvula are midline. Sternocleidomastoid strengths are full bilaterally.
Motor strengths are 5/5 bilateral upper and lower extremities on medical research [place] scale. There is no drift or involuntary movement noted.
Deep tendon reflexes are 2+ bilateral upper and lower extremities and Babinski is absent bilaterally.
Sensations of pain, touch, temperature and vibration are intact and bilaterally symmetrical. There was no extinction noted on double simultaneous stimulation. Coordination is intact by finger to nose bilaterally.
Romberg's is positive gait is assisted
Lab Results:
09/30/23 06:40
Sodium 133 mmol/L (135-145) L 09/30/23 06:40
Potassium 4.1 mmol/L (3.5-5.1) 09/30/23 06:40
BUN 18 mg/dl (9-20) 09/30/23 06:40
Glucose 106 mg/dl (70-99) H 09/30/23 06:40
Calcium 8.6 mg/dl (8.4-10.2) 09/30/23 06:40
Neuro Imaging: CT heaD: The ventricles are normal in size, configuration, and position for age. There is no intra- or extra-axial mass, hemorrhage, or fluid collection. No areas of abnormal mass effect or attenuation are noted. There is mild
subcortical, deep, and periventricular white matter low-attenuation, compatible with changes of chronic small vessel ischemic disease. Visualized paranasal sinuses are free of mucosal disease. No depressed calvarial fracture.
Impression:
Mr. SARA RUBIO is a 88 year old M who has presented to the hospital with altered mental status following use of ciprofloxacin for urinary tract infection
Recommendations:
1. Avoid use of (quinolones) ciprofloxacin
2. Continue current medical therapy
3. B12
4. PT/OT
5. Consider Eliquis for atrial Fibrillation
Discussed patient care with: Hospitalist
Total Time Spent with Patient (in minutes): 30
Vital Signs and Labs
-
Vital Signs and Labs:
Vital Signs
Temp Pulse Resp BP Pulse Ox
37.1 C 65 16 135/60 97
09/30/23 11:30 09/30/23 13:06 09/30/23 11:30 09/30/23 13:06 09/30/23 11:30
Lab Results
09/30/23 06:40
Sodium 133 mmol/L (135-145) L 09/30/23 06:40
Potassium 4.1 mmol/L (3.5-5.1) 09/30/23 06:40
BUN 18 mg/dl (9-20) 09/30/23 06:40
Glucose 106 mg/dl (70-99) H 09/30/23 06:40
Calcium 8.6 mg/dl (8.4-10.2) 09/30/23 06:40
--- NOTE | 2023-09-30 15:18 | PTOTSP ---
Speech Therapy Assessment
Oral/pharyngeal swallow deemed within functional limits without overt signs of aspiration. Cognitive deficits will likely impact self feeding ability.
Cognitive communication deficits noted in this patient with history of dementia, however are more pronounced compared to his baseline (according to his ). Reduced attention and concentration as well as word difficulty noted. Further cognitive
assessment pending results of MRI.
Recommend
1. Regular solids and thin liquids
2. Meds with liquid as tolerated
3. Supervision
4. Aspiration precautions.
5. Further cognitive communication testing pending results of MRI.
6. Patient may benefit from Palliative Care referral when back in home setting to assist patient and family navigate through advancing stages of dementia
[2023-09-30] MEDS: TYLENOL 650 MG PO (16:37)
--- NOTE | 2023-09-30 17:53 | W.PN.URO.CBU ---
Today's Communication / Plan
-
awaut csxs encouadge po
Assessment / Plan
-
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
Diagnosis
-
Date of Service: September 30, 2023
-
Patient Diagnosis:d as uti no cx h/o oab urgency nw feekls poorly hematuria no fwevr no dysuria noo colic no blood thinners ct scan no tumor clots nor hydro no stones ct scan is c/w chronic cystitis
Post Op Day:
Subjective
-
urgency empties bladder well 45 cc pvr
Objective
-
Vital Signs
Temp Pulse Resp BP Pulse Ox
98.8 F 75 18 161/70 97
09/30/23 16:10 09/30/23 16:31 09/30/23 16:10 09/30/23 16:31 09/30/23 16:10
Laboratory Results
09/30/23 06:40
09/30/23 06:40
Review of Systems
-
: Frequency and Dark Urine
Physical Exam
-
General - well developed, well nourished, no acute distress
Chest - clear bilaterally
Abdomen - soft, non-tender, positive bowel sounds, no CVAT, no incisional pain or distention
Genitalia - normal
Rectal - normal
Skin - warm & dry with no rash
Neuro - AOx3, no motor deficits
Extremities - no clubbing, no cyanosis, no edema
Incision - clean, dry
Dressing - clean, dry, intact
Care Review
Data Reviewed
Discussed with: Hospitalist, Nursing and Family (landon cardenas )
CT Scan: Image Pers Reviewed
[2023-10-01 03:00] VITALS: BP 112/71
[2023-10-01 06:00] VITALS: BMI 27.2
[2023-10-01 07:00] VITALS: BP 155/73
[2023-10-01 07:03] LABS: Hematocrit 32.8 % (39.0-52.0); Hemoglobin 10.4 g/dL (13.0-18.0); Mean Corp Hgb Conc. 31.7 g/dL (33.0-37.0); Mean Corpuscular Hgb 27.7 pg (27.0-31.0); Mean Corpuscular Volume 87.5 fL (80.0-94.0); Platelet Count 42 10^3/uL (130-400); Red Blood Cell Count 3.75 10^6/uL (4.70-6.10)
[2023-10-01 07:20] LABS: Blood Urea Nitrogen 15 mg/dl (9-20); Calcium 9.3 mg/dl (8.4-10.2); Carbon Dioxide 24 mmol/L (22-30); Chloride 102 mmol/L (98-107); Estimated Creatinine Clearance 66 ml/min; Glucose 99 mg/dl (70-99); Magnesium 2.1 mg/dl (1.6-2.3); Sodium 134 mmol/L (135-145); eGFR > 60.00
[2023-10-01 07:49] LABS: TSH Reflex To Free T4 2.07 uIU/ml (0.47-4.68)
[2023-10-01 08:24] LABS: Folate 17.1 ng/ml (2.76-20); Vitamin B12 363 pg/ml (239-931)
[2023-10-01] MEDS: ZOLOFT 150 MG PO (08:37)
[2023-10-01] MEDS: LOW STRENGTH ASPIRIN 81 MG PO (08:37)
[2023-10-01] MEDS: ProAmatine 10 MG PO (08:37)
--- NOTE | 2023-10-01 10:33 | W.PN.HOSP.TC ---
Today's Communication/Plan
-
d/c
Assessment / Plan
Assessment / Plan
pt is an 88 year old male
Speech Difficulty / Confusion--? expressive aphasia / speech difficulty versus more cognitive / confusion issue?-CT head unremarkable-Daily ASA for now--MRI brain with moderate to severe volume loss - -apprec neuro
BPH--Questionable UTI--nursing reports passing clots--apprec urology--culture NO growth, NO QUINOLONES per neuro--completed 3 weeks cipro (from PCP, his daughter)---CT scan without contrast without stones--does have bladder wall thickening
Paroxysmal Atrial Tachycardia / Atrial Fibrillation - Stable. Continue metoprolol - Not on OAC given fall / bleed risk.
Orthostatic Hypotension - Continue midodrine- Follow orthostatic signs during stay--none documented
MDS with pancytopenia- Stable. Abnormal cell counts all appear unchanged from known baseline- No evidence of any active bleeding, etc.
Senile Dementia with Behavioral Disturbance- Seems very possible that recent issues reflect progression of disease rather than UTI or other more acute process- Try to eliminate BZD dosing - trial of Seroquel for anxiety - Continue usual Zoloft- Risk
for acute delirium / decompensation during hospital stay
left shoulder pain--tender at biceps insertion point--consider trial of steroids (but might make confusion worse...) consider ortho consult for possible steroid injection
DVT Prophylaxis: SCDs
Code Status: Full
Anticipated Discharge: Today
Subjective/Interval History
-
Date of Service: October 01, 2023
pt still doesn't make sense but seems to be able to string more words together than yesterday
Objective Data
-
Labs:
Laboratory Results
10/01/23
05:51
WBC 2.0 L*
Hgb 10.4 L
Hct 32.8 L
Plt Count 42 L
Sodium 134 L
Potassium 4.0
Chloride 102
Carbon Dioxide 24
BUN 15
Creatinine 0.8
Glucose 99
Calcium 9.3
Vital Signs:
max temp for 24 hours
09/30/23
23:00
Temp 98.8 F
Vital Signs
Temp Pulse Resp BP Pulse Ox
98.5 F 64 17 155/73 99
10/01/23 07:00 10/01/23 08:37 10/01/23 07:00 10/01/23 08:37 10/01/23 07:00
I&O
09/30/23 10/01/23 10/02/23
06:59 06:59 06:59
Intake Total 540 / 540
Balance 540 / 540
Review of Systems
-
Unable to obtain full review of systems at this time due to: Dementia
Physical Exam
-
General: Well Developed, Well Nourished and No Apparent Distress
HEENT: Normocephalic and Atraumatic
Respiratory: Clear to Auscultation; Negative Wheezes or Rhonchi
Cardiac: Regular Rhythm and S1/S2; Negative Murmur
GI: Soft, Nontender, Nondistended and Normal Bowel Sounds
Musculoskeletal: No Clubbing, No Cyanosis and No Edema
Neuro: Awake and Alert
--- NOTE | 2023-10-01 10:45 | W.PN.URO.CBU ---
Today's Communication / Plan
-
D/C WHEN OK WITH HOSPITALIST
Assessment / Plan
-
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
Diagnosis
-
Date of Service: October 01, 2023
-
Patient Diagnosis:
Post Op Day:
Patient Diagnosis:d as uti no cx h/o oab urgency nw feekls poorly hematuria no fwevr no dysuria noo colic no blood thinners ct scan no tumor clots nor hydro no stones ct scan is c/w chronic cystitis
Post Op Day:
Subjective
-
MILD B;LOOD TONGED UINE NO COTS
Objective
-
Vital Signs
Temp Pulse Resp BP Pulse Ox
98.5 F 64 17 155/73 99
10/01/23 07:00 10/01/23 08:37 10/01/23 07:00 10/01/23 08:37 10/01/23 07:00
Intake and Output
09/30/23 10/01/23 10/02/23
06:59 06:59 06:59
Intake Total 540 / 540
Balance 540 / 540
Intake:
Oral fluids 540 / 540
Other:
How many times incontinent 1
SMALL amount urine
How many times incontinent 1
MODERATE amount urine
How many times incontinent 4
SATURATED amount urine
Laboratory Results
10/01/23 05:51
10/01/23 05:51
Review of Systems
-
: Frequency, Urgency and Bleeding
Physical Exam
-
General - well developed, well nourished, no acute distress
Chest - clear bilaterally
Abdomen - soft, non-tender, positive bowel sounds, no CVAT, no incisional pain or distention
Genitalia - normal
Rectal - normal
Skin - warm & dry with no rash
Neuro - AOx3, no motor deficits
Extremities - no clubbing, no cyanosis, no edema
Incision - clean, dry
Dressing - clean, dry, intact
Care Review
Data Reviewed
Discussed with: Nursing
[2023-10-01 11:00] VITALS: BP 144/66
--- NOTE | 2023-10-01 11:45 | CM ---
Reviewed chart, met with patient and her spouse who was at bedside. agreeable to discharge and will take patient home. IMM reviewed.
Plan: Case management will continue to follow and assist with discharge planning. Patient's taking patient home with caregiver assistance.
[2023-10-01] MEDS: TYLENOL 650 MG PO (12:01)
[2023-10-01] MEDS: TOPROL XL 12.5 MG PO (12:02)
--- NOTE | 2023-10-01 13:22 | W.DCSUMMARY ---
Discharge Summary
Discharge Data
Date of Admission: 09/30/23
Date of Discharge: 10/01/23
-
Pending Results: No
Hospital Course
Primary care physician : Anay Stewart
Principal Discharge diagnosis : Speech difficulty with confusion likely due to senile dementia exacerbated by quinolone therapy, left shoulder pain
Chronic Discharge diagnosis : Benign prostatic hyperplasia, paroxysmal atrial tachycardia/atrial fibrillation, orthostatic hypotension, myelodysplastic syndrome with pancytopenia
Hospital Course : Patient was an 88-year-old male with a past medical history significant for dementia, and myelodysplastic syndrome with pancytopenia whose history was obtained from the family. Patient was taking a nap and when he woke up he
seemed more confused. He did not recognize his . She also claimed he could either name her nor his own name. He seemed to have difficulty with speech in a rambling nonsensical pattern. Because he is not at baseline he was brought in and
placed under observation. Of note, the patient was nearly complete with 3 weeks of ciprofloxacin given for a suspected urinary tract infection by his primary care physician (who happens to be his daughter).
Problem #1: Speech difficulty with confusion likely secondary to senile dementia exacerbated by quinolone therapy. Patient was seen in consultation by neurology. CAT scan of his head and MRI of the brain showed no acute findings. He did have
significant atrophy consistent with dementia. Neurology feels that quinolone therapy in this particular patient (with dementia) is what exacerbated the issue and that quinolone should be avoided moving forward. In addition, patient had no culture
data to support a urinary tract infection.
Problem #2: Left shoulder pain. By my exam, he has pain at the bicep insertion point of the left arm/shoulder. Given his low platelet, count nonsteroidal medications are contraindicated. Given his dementia, steroids were not tried as well so as
not to exacerbate things. He should likely follow-up with orthopedics as an outpatient for possible steroid injection to the shoulder directly.
Problem #3: All other medical issues. These include Benign prostatic hyperplasia, paroxysmal atrial tachycardia/atrial fibrillation, orthostatic hypotension, myelodysplastic syndrome with pancytopenia. These medical issues were stable during his
hospitalization. Medications were continued as able. In regards to his urinary complaints, it was noted the patient was passing blood clots here in the hospital. Urology was consulted. CAT scan of the abdomen and pelvis was done which showed no
obstructing stones but did show thickening of the bladder consistent with possible cystitis. Urine culture was done and was negative. He was taken off all antibiotics. He has to follow-up with urology for likely cystoscope in the office.
Patient has been cleared for discharge by both urology and neurology and is stable for discharge home at this time. If there are any questions regarding this dictation or his hospital stay, please and hesitate to call. Our office number is
[phone].
Important imaging findings :
CT SCAN HEAD IMPRESSION:
No acute intracranial abnormality noted.
BRAIN MRI IMPRESSION:
1. No MRI evidence for acute infarct or intracranial hemorrhage.
2. 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
3. Mild to moderate white matter leukoaraiosis in the frontal and parietal lobes.
4. 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
5. 2.6 cm meningioma in the left middle cranial fossa causing mild mass effect on the left temporal lobe.
6. Small multilevel disc herniations in the cervical spine causing mild spinal cord compression and central canal stenosis.
7. Diffuse bone marrow signal abnormality throughout the calvarium consistent with a MYELODYSPLASTIC SYNDROME.
CT SCAN ABDOMEN/PELVIS IMPRESSION:
1).There is mild concentric bladder wall thickening and mild hazy edema versus inflammatory change in the fat around the urinary bladder suggesting possible cystitis.
Imaging of the urinary bladder is limited by beam hardening artifact from bilateral hip replacements.
2). There is a probably 1 cm benign rim calcified exophytic mass at the lateral midportion of the right kidney which most likely is a complex cyst
3). There are multiple bilateral renal cysts measuring up to 5.5 cm
4).There are no obstructing renal or ureteral calculi
There is no hydronephrosis or hydroureter
5).There are decompressive laminectomies at L3 and L4, discectomy with interbody fusion at L3-4 and L4-5 and posterior mechanical stabilization via bilateral interconnected pedicle screws at L3, L4 and L5
6). There is degenerative disc disease with disc space narrowing and vacuum disc phenomenon at T12-L1 and L5-S1
7). There are bilateral hip replacements
8). There is mild thoracolumbar levoscoliosis
Discharge Plan
-
Patient Disposition: Home (Routine Discharge)
Discharge Diagnosis/Procedures: Speech difficulty with confusion likely expressive aphasia from worsening dementia exacerbated by quinolones, benign prostatic hyperplasia with hematuria, paroxysmal atrial tachycardia/atrial fibrillation, orthostatic
hypotension chronic, myelodysplastic syndrome with pancytopenia, left shoulder pain
Condition: Fair
Diet: As tolerated and Regular
Activity: As tolerated
Driving Restrictions: No driving
Bathing Restrictions: None
Activity Restrictions/Additional Instructions:
AVOID quinolones in pt with dementia as per neuro
Referrals:
Chip Garcia MD [Active] - (call for appointment DR PALMER [phone] AND FOLLOW UP EXPEXT SOME HEMATURIA NCOURAGE FLUIDS AND EXPECT USUAL AMOUNT FREQUENCY URGENCY)
Anay Stewart, [Family Provider] - in less than 1 week
Prescriptions:
Continued
sertraline 100 mg Tablet
150 mg PO DAILY
therapeutic multivitamin Tablet
1 tab PO DAILY
lorazepam 0.5 mg Tablet
0.5 mg PO BIDPRN PRN (Reason: anxiety)
Patient Comments:
09/29/2023: last filled 09/15/23, 60 tabs for 20 days from [id number]
loperamide 2 mg Capsule
2 mg PO Q4HPRN PRN (Reason: diarrhea)
acetaminophen 500 mg Tablet
1,000 mg PO Q6HPRN PRN (Reason: mild pain/fever)
midodrine 10 mg tablet
10 mg PO BID@0900,1300
metoprolol succinate 25 mg tablet extended release 24 hr
12.5 mg PO BID@1100,1500
Discontinued
ciprofloxacin HCl 500 mg tablet
250 mg PO BID
Discharge Orders:
Discharge Patient (As Directed); Ordered 10/01/23
Ordered By: Marce Kenny
Discharge Date and Time
Print Language: MACANESE
== END 2023-10-01 13:25 | disposition home health service (06) ==
LOC: 3 WEST ACU 03:26
PROVIDERS: Emergency Medicine; ADMITTING PHYSICIAN Hospitalist; ATTENDING PHYSICIAN Internal Medicine; CONSULT PHYSICIAN Psychiatry & Neurology Neurology; CONSULT PHYSICIAN Specialist; EMERGENCY PHYSICIAN Student in an Organized Health Care Education/Training Program; FAMILY PHYSICIAN Family Medicine
DX: R41.82 Altered mental status, unspecified (principal); F03.918 Unspecified dementia, unspecified severity, with other behavioral disturbance; R47.81 Slurred speech; R47.01 Aphasia; N32.81 Overactive bladder; N40.0 Benign prostatic hyperplasia without lower urinary tract symptoms; G92.8 Other toxic encephalopathy; N40.1 Benign prostatic hyperplasia with lower urinary tract symptoms; I95.1 Orthostatic hypotension; D46.9 Myelodysplastic syndrome, unspecified; R31.9 Hematuria, unspecified; N28.1 Cyst of kidney, acquired; D61.818 Other pancytopenia; M25.512 Pain in left shoulder; J98.11 Atelectasis; M51.37 Other intervertebral disc degeneration, lumbosacral region; M51.36 Other intervertebral disc degeneration, lumbar region; M50.01 Cervical disc disorder with myelopathy, high cervical region; M48.02 Spinal stenosis, cervical region; I48.0 Paroxysmal atrial fibrillation; I47.19 Other supraventricular tachycardia; M41.9 Scoliosis, unspecified; N39.0 Urinary tract infection, site not specified; R47.9 Unspecified speech disturbances; Z91.040 Latex allergy status; Z87.440 Personal history of urinary (tract) infections; Z96.643 Presence of artificial hip joint, bilateral; Z98.1 Arthrodesis status; Z86.73 Personal history of transient ischemic attack (TIA), and cerebral infarction without residual deficits
CPT/HCPCS: 51701; 70450; 70551; 74178; 80048; 80053; 81003; 81015; 82607; 82746; 83735; 84443; 85025; 85027; 87040; 87086; 92523; 92610; 96374; 97163; 97167; 99285; Q9967

== ENCOUNTER 2023-12-07 10:40 | Emergency (ER) | payer MEDICARE, BC, SELFPAY ==
[2023-12-07 10:48] VITALS: BP 106/62
[2023-12-07 10:49] VITALS: BP 106/62
--- NOTE | 2023-12-07 10:56 | ED.GENMED ---
History of Present Illness
General
Chief Complaint: Change in Mental Status
Source: patient and ambulance crew
Exam Limitations: dementia
Time Seen by Provider: 12/07/23 10:43
History of Present Illness
History of Present Illness:
88 yo male w h/o dementia, Afib, not anticoagulated, EMS reports called EMS for general weakness, worse than usual confusion. At 7 a.m he was awake, his usual confused state. At 10 a.m. he was more sluggish than usual as she got him out of
bed, he walked to the bathroom and stumbled, so she sat him on a chair by the toilet and he leaned to the left side and leaned his head against the wall.
EMS arrived to find pt there, stated 'he should know who I am,' but he was unable to say who his is.
Pt denies CP, trouble breathing, belly pain. Has pain in right shoulder when getting undressed (chronic). He cannot state where he is or why he's here. Cannot say his address. Does state his name.
11:20 AM:
arise she states patient typically has frequent urination 5-6 times at night when she gets up and helps him stand at the bedside and hold the urinal for him.
At 6 AM she was doing this routine when he 'did not seem himself,' he was not following commands as usual.
7 AM he said he had to urinate and he was still 'not with it.' He was not following simple commands such as 'stand up or get back in bed.'
8:30 AM, she sat him up in bed getting a drink of water and ate 'just did not want to get up.'
9:00 she try to get him up, he was not following any directions as he usually does. She got him to the kitchen with his walker, he sat down and said 'I have to get out of here.' She has been getting of the bathroom, he said yes she states she is
done him up with a walker could not get him to turn or sit or move or anything so she sat him in a shower chair. He just sat there with his head down and not responding. She called 911 and he just sat there slumped and leaned over toward the left
with his head against the wall. She states he was not responsive for a few seconds while she was on the phone with 911. She states that this time he is much more alert and improved.
Past History
Past History
ED Past Medical History: Arrthythmia and Other (Dementia, myelodysplasia, orthostatic hypotension)
ED Past Surgical History: Cholecystectomy and Orthopedic (Lumbosacral decompression x 4, right THR)
Social History
Tobacco: Non-smoker
Alcohol: None
Drug: None
Personal:
Living: with family
Employment: Retired
Family History
Family History: Other (Reviewed and noncontributory)
Review of Systems
Review of Systems
Allergies reviewed?: Yes
All Other Systems: ROS reviewed and negative except as documented in HPI and ROS
Constitutional: Denies fever
Respiratory: Denies trouble breathing
Cardiac: Denies chest pain or syncope
ABD/GI: Denies abdominal pain, nausea, vomiting or diarrhea
: Reports incontinence
Musculoskeletal: Reports other (pain right shoulder, due for shoulder replacement per ); Denies edema
Neurological: Denies headache
Phy Exam
Physical Exam
Physical Exam:
GENERAL: No acute distress. Alert, oriented to name only
CONSTITUTIONAL: Afebrile.
EYES: PERRL, conjunctivae normal
Neck: Supple
ENMT: moist mucus membranes, Pharynx nl, mucus drainage from nose on upper lip
RESPIRATORY: Regular respirations, nonlabored, lungs clear.
CARDIOVASCULAR: Regular rate and rhythm, no murmurs, no rubs.
GI: Soft, nontender, normal BS
MUSCULOSKELETAL: No edema. Well perfused. Pain with movement right shoulder (chronic), otherwise extremities non tender
SKIN: Warm, dry, pink, Erythema of buttocks, skin intact.
PSYCH: Confused, dementia. Normal mood and affect. Well kept, interactive. Trouble following commands.
NEUROLOGIC: Awake, alert and oriented to name only. Speech clear. No focal neurological deficits, Strength 4/5 hand grasps and LE's.
Course
Orders/Labs/Results
Orders:
Orders
12/07/23 10:55
Electrocardiogram (*1) Urgent
Reason for Study: Fatigue / Weakness
EKG- Treatment ONCE
0.9% Sodium Chloride 500 ml [Nss] 500 ml IV BOLUS
12/07/23 11:06
CT Head W/o Iv Contrast Urgent
Comment:
Reason For Exam: worse confusion, leaned to left side
12/07/23 11:11
COVID-19 Antigen Urgent
Source: Nasal Swab
Complete Blood Count/With Diff Urgent
Comprehensive Metabolic Panel Urgent
Urinalysis Reflex To Culture Urgent
Date Specimen was Collected: 12/07/23
Time Specimen was Collected: 11:01
12/07/23 11:29
CR Chest - 2 Views Urgent
Comment:
Reason For Exam: cough, confusion
Abnormal Lab Results
12/07/23
11:11
WBC 1.9 L* 10^3/uL
(4.8-10.8)
RBC 4.02 L 10^6/uL
(4.70-6.10)
Hgb 11.1 L g/dL
(13.0-18.0)
Hct 34.9 L %
(39.0-52.0)
MCHC 31.8 L g/dL
(33.0-37.0)
RDW 19.9 H %
(11.5-14.5)
Plt Count 37 L 10^3/uL
(130-400)
Absolute Neuts (auto) 0.9 L* 10^3/uL
(1.4-6.5)
Absolute Lymphs (auto) 0.8 L 10^3/uL
(1.2-3.4)
Monocytes % 14.6 H %
(1.7-9.3)
BUN 23 H mg/dl
(9-20)
Glucose 124 H mg/dl
(70-99)
Total Bilirubin 1.7 H mg/dl
(0.2-1.3)
SARS-CoV-2 Antigen Positive A
(Negative)
12/07/23 11:11
12/07/23 11:11
Vital Signs
Initial and Last Documented VS:
Initial Vital Signs
BP
106/62
12/07/23 10:48
Last Documented Vital Signs
Temp Pulse Resp BP Pulse Ox
99.7 F 84 17 106/58 95
12/07/23 10:49 12/07/23 13:15 12/07/23 13:15 12/07/23 13:00 12/07/23 12:08
MDM/Problems Addressed
MDM/Problems Addressed:
88 yo male w h/o dementia, Afib, not anticoagulated, EMS reports called EMS for general weakness, worse than usual confusion. At 7 a.m he was awake, his usual confused state. At 10 a.m. he was more sluggish than usual as she got him out of
bed, he walked to the bathroom and stumbled, so she sat him on a chair by the toilet and he leaned to the left side and leaned his head against the wall.
EMS arrived to find pt there, stated 'he should know who I am,' but he was unable to say who his is.
Pt denies CP, trouble breathing, belly pain. Has pain in right shoulder when getting undressed (chronic). He cannot state where he is or why he's here. Cannot say his address. Does state his name.
Afebrile, NAD
EKG: Sinus with PACs
Head CT: NAD
11:20 AM:
arise she states patient typically has frequent urination 5-6 times at night when she gets up and helps him stand at the bedside and hold the urinal for him.
At 6 AM she was doing this routine when he 'did not seem himself,' he was not following commands as usual.
7 AM he said he had to urinate and he was still 'not with it.' He was not following simple commands such as 'stand up or get back in bed.'
8:30 AM, she sat him up in bed getting a drink of water and ate 'just did not want to get up.'
9:00 she try to get him up, he was not following any directions as he usually does. She got him to the kitchen with his walker, he sat down and said 'I have to get out of here.' She has been getting of the bathroom, he said yes she states she is
done him up with a walker could not get him to turn or sit or move or anything so she sat him in a shower chair. He just sat there with his head down and not responding. She called 911 and he just sat there slumped and leaned over toward the left
with his head against the wall. She states he was not responsive for a few seconds while she was on the phone with 911. She states that this time he is much more alert and improved.
Covid positive
CBC: Abnormal, baseline, consistent with his myelodysplastic disease
CMP: No clinically significant abnormality
UA negative
CXR: NAD, low lung volumes likely bibasilar atelectasis
states she is comfortable taking patient home. His home health aid is here with him. She cares for him daily.
Discussed lab abnormalities with ,
He will follow up with his family nurse practitioner
*Critical Care Note
Total Time (30-74mins, 75-104mins- exclusive of procedures): Not Applicable
ED Attending Note
-
Portions of this chart may have been created with voice recognition software.� Occasional wrong word or��sound alike� substitutions may have occurred due to the inherent limitations of voice recognition software.
Discharge Plan
Departure
Patient Disposition: Home (Routine Discharge)
Date of Disposition: 12/07/23
Time of Disposition: 13:15
Patient with high blood pressure during this ER visit?: No
Condition: Fair
Covid-19: Confirmed COVID-19
Discharge Problem:
COVID-19
Instructions: COVID-19 ED, Coronavirus Home Quarantine
Prescriptions:
No Action
sertraline 100 mg Tablet
150 mg PO DAILY
therapeutic multivitamin Tablet
1 tab PO DAILY
lorazepam 0.5 mg Tablet
0.5 mg PO BIDPRN PRN (Reason: anxiety)
Patient Comments:
09/29/2023: last filled 09/15/23, 60 tabs for 20 days from [id number]
loperamide 2 mg Capsule
2 mg PO Q4HPRN PRN (Reason: diarrhea)
acetaminophen 500 mg Tablet
1,000 mg PO Q6HPRN PRN (Reason: mild pain/fever)
midodrine 10 mg tablet
10 mg PO BID@0900,1300
metoprolol succinate 25 mg tablet extended release 24 hr
12.5 mg PO BID@1100,1500
Referrals:
Anay Stewart, [Family Provider] -
Activity Restrictions/Additional Instructions:
As we discussed, your symptoms are most likely due to your COVID infection.
Tylenol as needed for fever
Your chest x-ray shows nothing significant, specifically no pneumonia
Your head CT shows nothing worrisome, there is a 'meningioma' which has been seen on previous studies
I have provided you with lab work from 2022 to today so you can trend it
Interventions
Interventions:
*Risk Screen - Suicide Last Done: 12/07/23 10:54
*General Assessment Last Done: 12/07/23 10:54
*Neglect/Abuse Screening Last Done: 12/07/23 10:54
ED- Fall Risk Assessment Last Done: 12/07/23 13:32
*ED COVID-19 Vaccine History Last Done: 12/07/23 10:54
*Nursing Disposition Last Done: 12/07/23 13:32
ED- Pulmonary Assessment Last Done: 12/07/23 13:32
ED-Psychological Assessment Last Done: 12/07/23 13:32
ED- Neurological Assessment Last Done: 12/07/23 10:58
ED- Cardiac Assessment Last Done: 12/07/23 13:32
ED Swallowing Screen Last Done: 12/07/23 11:16
Discharge Date and Time
Discharge Date/Time: 12/07/23 13:44
Print Language: SWEDISH
[2023-12-07] MEDS: NSS 500 IV (11:03)
[2023-12-07 11:24] LABS: COVID-19 Antigen Positive (Negative)
[2023-12-07 11:28] LABS: Urine Albumin Negative (Neg - Trace); Urine Bilirubin Negative (Negative); Urine Character Clear (Clear); Urine Color Yellow; Urine Glucose Negative (Negative); Urine Ketone Negative (Negative); Urine Leukocyte Negative (Negative); Urine Nitrite Negative (Negative); Urine Occult Blood Negative (Negative); Urine Specific Gravity 1.015 (<1.030); Urine Urobilinogen 1+ (Neg - 1+)
[2023-12-07 11:30] LABS: Hematocrit 34.9 % (39.0-52.0); Hemoglobin 11.1 g/dL (13.0-18.0); Mean Corp Hgb Conc. 31.8 g/dL (33.0-37.0); Mean Corpuscular Hgb 27.6 pg (27.0-31.0); Mean Corpuscular Volume 86.8 fL (80.0-94.0); Platelet Count 37 10^3/uL (130-400); Red Blood Cell Count 4.02 10^6/uL (4.70-6.10); Red Cell Dist. Width 19.9 % (11.5-14.5); White Blood Cell Count 1.9 10^3/uL (4.8-10.8)
[2023-12-07 11:33] LABS: ALT (SGPT) 18 U/L (0-50); AST (SGOT) 22 U/L (17-59); Albumin 4.1 g/dl (3.5-5.0); Alkaline Phosphatase 104 U/L (38-126); Blood Urea Nitrogen 23 mg/dl (9-20); Calcium 9.2 mg/dl (8.4-10.2); Carbon Dioxide 27 mmol/L (22-30); Chloride 99 mmol/L (98-107); Glucose 124 mg/dl (70-99); Potassium 4.1 mmol/L (3.5-5.1); Sodium 136 mmol/L (135-145); Total Bilirubin 1.7 mg/dl (0.2-1.3); Total Protein 6.5 g/dl (6.3-8.2); eGFR > 60.00
[2023-12-07 11:57] LABS: % Lymphocytes 41.1 % (20.5-51.1); % Monocytes 14.6 % (1.7-9.3); % Neutrophils 44.3 % (42.2-75.2); Absolute Lymphocytes 0.8 10^3/uL (1.2-3.4); Absolute Monocytes 0.3 10^3/uL (0.1-0.6); Absolute Neutrophils 0.9 10^3/uL (1.4-6.5)
[2023-12-07 12:00] VITALS: BP 125/72
[2023-12-07 13:00] VITALS: BP 106/58
== END 2023-12-07 13:44 | disposition home or self-care (01) ==
LOC: EMR 10:40
PROVIDERS: Registered Nurse; EMERGENCY PHYSICIAN Emergency Medicine; FAMILY PHYSICIAN Family Medicine
DX: U07.1 COVID-19 (principal); F03.90 Unspecified dementia, unspecified severity, without behavioral disturbance, psychotic disturbance, mood disturbance, and anxiety; I48.91 Unspecified atrial fibrillation; D46.9 Myelodysplastic syndrome, unspecified; Z90.49 Acquired absence of other specified parts of digestive tract
CPT/HCPCS: 99284; 96360; 70450; 71046; 80053; 81003; 85025; 87811; 93005

== ENCOUNTER 2023-12-19 23:55 | Observation (INO) | payer MEDICARE, BC, SELFPAY ==
[2023-12-19 19:21] VITALS: BP 128/55; BMI 26.1
[2023-12-19 19:24] VITALS: BP 128/55
[2023-12-19 19:48] LABS: Hematocrit 34.8 % (39.0-52.0); Hemoglobin 11.2 g/dL (13.0-18.0); Mean Corp Hgb Conc. 32.2 g/dL (33.0-37.0); Mean Corpuscular Hgb 27.2 pg (27.0-31.0); Mean Corpuscular Volume 84.5 fL (80.0-94.0); Red Blood Cell Count 4.12 10^6/uL (4.70-6.10); Red Cell Dist. Width 20.1 % (11.5-14.5); White Blood Cell Count 3.9 10^3/uL (4.8-10.8)
[2023-12-19 19:57] LABS: ALT (SGPT) 23 U/L (0-50); AST (SGOT) 28 U/L (17-59); Albumin 3.8 g/dl (3.5-5.0); Alkaline Phosphatase 90 U/L (38-126); Blood Urea Nitrogen 26 mg/dl (9-20); Calcium 9.2 mg/dl (8.4-10.2); Carbon Dioxide 23 mmol/L (22-30); Chloride 100 mmol/L (98-107); Estimated Creatinine Clearance 50 ml/min; Glucose 134 mg/dl (70-99); Potassium 4.5 mmol/L (3.5-5.1); Sodium 134 mmol/L (135-145); Total Bilirubin 1.4 mg/dl (0.2-1.3); Total Protein 6.4 g/dl (6.3-8.2); eGFR > 60.00
[2023-12-19 20:00] VITALS: BP 119/58
[2023-12-19 20:02] LABS: COVID-19 Antigen Negative (Negative)
[2023-12-19 20:07] LABS: % Basophils 0.3 % (0-2); % Lymphocytes 28.1 % (20.5-51.1); % Monocytes 14.5 % (1.7-9.3); % Neutrophils 56.1 % (42.2-75.2); Absolute Lymphocytes 1.1 10^3/uL (1.2-3.4); Absolute Monocytes 0.6 10^3/uL (0.1-0.6); Absolute Neutrophils 2.2 10^3/uL (1.4-6.5); Nucleated Red Blood Cells % 0.5 % (-); Platelet Count 45 10^3/uL (130-400)
--- NOTE | 2023-12-19 20:21 | ED.GENMED ---
History of Present Illness
General
Chief Complaint: Fever
Source: patient
Time Seen by Provider: 12/19/23 20:21
Nursing documentation reviewed up to this point in time: agreed with
History of Present Illness
History of Present Illness:
Patient is a 88-year-old male who presents to the ER for evaluation. Family reports patient had COVID 2 weeks ago but tested negative over the weekend. This morning however patient did not seem himself. He does have dementia but was more confused
than normal and weaker. reports patient was sitting on the toilet and passed out. She believes he had a vagal response. He does have a history of low blood pressure and is on midodrine for.
she then however checked his temperature and he had a fever of 100.2. He was given Tylenol both at 11:30 AM and 3 PM. She reports he is not himself and definitely weaker he normally walks with a walker but has been too weak and more confused than
normal. She also reports that he has not urinated since. does report patient has had a cough. He has had a little to eat and drink today.
Past History
Past History
ED Past Medical History: Arrthythmia and Other (Dementia, myelodysplasia, orthostatic hypotension)
ED Past Surgical History: Cholecystectomy and Orthopedic (Lumbosacral decompression x 4, right THR)
Social History
Tobacco: Non-smoker
Alcohol: None
Drug: None
Personal:
Living: with family
Employment: Retired
Family History
Family History: Other (Reviewed and noncontributory)
Review of Systems
Review of Systems
Allergies reviewed?: Yes
All Other Systems: ROS reviewed and negative except as documented in HPI and ROS
Constitutional: Reports fever
Respiratory: Reports cough
Musculoskeletal: Reports no symptoms
Skin: Reports no symptoms
Neurological: Reports other (More confused than normal)
Psychiatric: Reports no symptoms
Phy Exam
General Physical Exam
General Presentation: no apparent distress
General age: appears stated age
General Skin: warm and dry
General Habitus: elderly
General Mental: confused
General Hydration: dry mucous membranes
Cardiovascular Exam
Cardiovascular Exam: normal peripheral pulses and bradycardia
Pulmonary Exam
Pulmonary Exam: lungs clear and no respiratory distress
Neurological Exam
Neurological Exam: alert and other (Able to state name, confused attempt to follow commands)
Musculoskeletal Exam
Musculoskeletal Exam: full ROM
Skin Exam
Skin Exam: normal color and warm/dry
Psychiatric Exam
Psychiatric Exam: normal mood/affect
Course
Orders/Labs/Results
Orders:
Orders
12/19/23 19:35
COVID-19 Antigen Urgent
Source: Nasal Swab
Complete Blood Count/With Diff Urgent
Comprehensive Metabolic Panel Urgent
Influenza A+B Rapid Molecular Urgent
EMMANUELLE Source: Nasal Swab
Specimen Description:
12/19/23 20:40
Bladder Scan- Treatment ONCE
Straight cath- Treatment ONCE
0.9% Sodium Chloride 1000 ml [Nss] 1,000 ml IV BOLUS
Chest [CR Chest - 2 Views ] Urgent
Comment:
Reason For Exam: cough/fever
12/19/23 20:42
UA Reflex to Culture [Urinalysis Reflex To Culture] Urgent
Date Specimen was Collected: 12/19/23
Time Specimen was Collected: 20:32
Urine Microscopic Reflex Cult Urgent
12/19/23 22:57
Electrocardiogram (*1) Stat
Reason for Study: Other
Other Reason for Exam: chest pain
EKG- Treatment ONCE
12/19/23 23:00
Flush (0.9% Sodium Chloride) [Flush (Nss)] See Dose Instructions IV PER PROTOCOL
12/19/23 23:15
Lactic Acid Urgent
12/19/23 23:19
Blood Culture Urgent
EMMANUELLE Source: Blood/Venous
Specimen Description:
12/19/23 23:22
Procalcitonin Urgent
PCT Algorithmm Indication: Sepsis
12/19/23 23:49
Blood Culture Routine
EMMANUELLE Source: Blood/Venous
Specimen Description:
Abnormal Lab Results
12/19/23 12/19/23
19:35 20:42
WBC 3.9 L 10^3/uL
(4.8-10.8)
RBC 4.12 L 10^6/uL
(4.70-6.10)
Hgb 11.2 L g/dL
(13.0-18.0)
Hct 34.8 L %
(39.0-52.0)
MCHC 32.2 L g/dL
(33.0-37.0)
RDW 20.1 H %
(11.5-14.5)
Plt Count 45 L 10^3/uL
(130-400)
Absolute Lymphs (auto) 1.1 L 10^3/uL
(1.2-3.4)
Immature Gran % 1.0 H %
(0-0.5)
Monocytes % 14.5 H %
(1.7-9.3)
Sodium 134 L mmol/L
(135-145)
BUN 26 H mg/dl
(9-20)
Glucose 134 H mg/dl
(70-99)
Total Bilirubin 1.4 H mg/dl
(0.2-1.3)
Urine Bilirubin 1+ A
(Negative)
Leukocyte Esterase Rfl Trace A
(Negative)
Urine Bacteria (Reflex) Few A
(Negative)
12/19/23 19:35
12/19/23 19:35
Vital Signs
Initial and Last Documented VS:
Initial Vital Signs
Temp Pulse Resp BP Pulse Ox
99.6 F 71 16 128/55 96
12/19/23 19:21 12/19/23 19:21 12/19/23 19:21 12/19/23 19:21 12/19/23 19:21
Last Documented Vital Signs
Temp Pulse Resp BP Pulse Ox
99.6 F 62 18 135/59 94
12/19/23 19:21 12/20/23 01:15 12/20/23 01:15 12/19/23 23:12 12/20/23 00:45
MDM/Problems Addressed
Differential Diagnosis Includes:
Not limited to UTI, dehydration, pneumonia, viral syndrome, vasovagal syncope
MDM/Problems Addressed:
88-year-old male with history of dementia, MDS presented to the ER with family. Family reports patient had COVID 2 weeks ago recently tested negative however today has had worsening confusion weakness cough. He was sitting on the toilet and did
have syncopal episode today while trying to have a BM. Patient was awake alert he is in no acute distress but confused. He appears sleepy with a temp of 99.6 rectally. He has a history of MDS and platelets are baseline 45,000 white count is
elevated 3.9 which is elevated from his prior labs. bun elevated at 26 . Straight cath urine does not appear infected. COVID-negative. Chest x-ray negative. Will hold off on antibiotics at this time however case reviewed with admitting
hospitalist. Will check lactic. EKG sinus bradycardia heart rate 59 no acute findings. Will admit for weakness change in mental status fever
*Radiology
Radiology exam reviewed: radiology read reviewed
*Pulse Oximetry
Patient hypoxic: no
*EKG
Interpretation: abnormal
Comparison EKG: no changes
Heart Rate: 59
Rate: EKG- N/A (Sinus bradycardia PACs)
*Critical Care Note
Total Time (30-74mins, 75-104mins- exclusive of procedures): Not Applicable
ED Attending Note
-
Portions of this chart may have been created with voice recognition software.� Occasional wrong word or��sound alike� substitutions may have occurred due to the inherent limitations of voice recognition software.
Discharge Plan
Departure
Patient Disposition: Admit
Date of Disposition: 12/19/23
Time of Disposition: 23:16
Admit to: Med/Surg
Admit to doctor: hospitalist
Presentation/result/management discussed w/ accepting MD/DO: Hospitalist
Patient with high blood pressure during this ER visit?: No
Condition: Fair
Covid-19: Negative COVID-19
Discharge Problem:
Fever, Weakness, change in ms
Interventions
Interventions:
*Risk Screen - Suicide Last Done: 12/19/23 19:30
*General Assessment Last Done: 12/19/23 19:30
*Neglect/Abuse Screening Last Done: 12/19/23 19:30
ED- Fall Risk Assessment Last Done: 12/20/23 01:17
*ED COVID-19 Vaccine History Last Done: 12/19/23 19:30
*Nursing Disposition Last Done: 12/20/23 01:17
ED- Neurological Assessment Last Done: 12/19/23 19:30
ED-Skin Assessment Last Done: 12/19/23 19:30
Discharge Date and Time
Discharge Date/Time: 12/20/23 01:18
[2023-12-19] MEDS: NSS 1000 IV (20:43)
[2023-12-19 21:00] VITALS: BP 114/62
[2023-12-19 21:00] LABS: Urine Albumin Trace (Neg - Trace); Urine Bilirubin 1+ (Negative); Urine Character Clear (Clear); Urine Color Yellow; Urine Glucose Negative (Negative); Urine Ketone Negative (Negative); Urine Leukocyte Trace (Negative); Urine Nitrite Negative (Negative); Urine Occult Blood Negative (Negative); Urine Specific Gravity 1.015 (<1.030); Urine Urobilinogen 1+ (Neg - 1+)
[2023-12-19 21:15] LABS: Urine Red Blood Cell 0-2 /HPF (0-2); Urine Squamous Cell 0-2 /LPF (Few)
[2023-12-19 21:16] LABS: Urine Bacteria Few (Negative); Urine Mucus Moderate
[2023-12-19 22:00] VITALS: BP 141/65
[2023-12-19 23:12] VITALS: BP 135/59
--- NOTE | 2023-12-19 23:27 | HPS.HSE ---
Family Physician
-
Family Physician: Anay Stewart
Chief Complaint
-
Fever, cough, worsening confusion/weakness, decreased oral intake
History of Present Illness
88-year-old male with history of dementia presenting to the ER with fever, cough, worsening confusion and weakness. His reported to the ER he had a syncopal episode this a.m. while having a bowel movement on the toilet. He reportedly had
COVID 2 weeks ago. He was positive on 12/07/2023 in the emergency department. She reports he left the ER that day was weak for 3 to 4 days then back to his baseline, although has had occasional productive dark yellow cough in the last 8 days with
episodes of hiccuping lasting 36 hours at a time. He has history of dementia with behavioral disturbances although was reported to be more confused than normal. His reported he had a fever of 100.2 at home she gave Tylenol at 1130 this
morning and 3 PM. Decreased oral intake today and only voided once.
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
the calvarium consistent with myelodysplastic syndrome, senile dementia with behavioral disturbance, chronic left shoulder pain, BPH, paroxysmal atrial tachycardia/A-fib, orthostatic hypotension, urinary cystitis with clots September 2023, history of
laminectomies L3-L4 L4-L5, DDD disc space narrowing T12-L1, L S1
Medical History
Past Medical History
Past Medical History: Reports Other
Additional Past Medical History:
MDS
Paroxysmal A-Fib / Paroxysmal Atrial Tachycardia
Senile Dementia with behavioral disturbance
Orthostatic Hypotension
Urinary cystitis passing clots September 2023
COVID-19 infection 12/07/2023
Past Surgical History: Reports Other
Additional Past Surgical History:
Bilateral JOSELINE
Lumbar Surgery
Right Shoulder Surgery
Social History
Tobacco: Non-smoker
Alcohol: Occasional
Drug: None
Personal:
Living: With Family
Family History
Family History: Not pertinent
Allergies / Home Medications
Allergies reflects when Allergies were last updated in [facility].
Home Medications with original date entered in [facility]
Allergy/Medication List:
Allergies
Allergy/AdvReac Type Severity Reaction Status Date / Time
latex Allergy Intermediate Rash Verified 09/29/23 21:01
Home Medications
sertraline 100 mg tablet 150 mg PO DAILY Mental Health 09/02/23
therapeutic multivitamin 1 tab PO DAILYPRN PRN supplement 09/02/23
lorazepam 0.5 mg tablet 0.5 mg PO BIDPRN PRN anxiety 09/20/23
acetaminophen 500 mg tablet 1,000 mg PO Q6HPRN PRN mild pain/fever 09/29/23
metoprolol succinate 25 mg tablet,extended release 24 hr 12.5 mg PO BID@1100,1500 Atrial fibrillation 09/29/23
midodrine 10 mg tablet 10 mg PO BID@0900,1300 Blood Pressure 09/29/23
atomoxetine 25 mg capsule 25 mg PO DAILY 12/19/23
prednisone 10 mg tablet 10 mg PO DAILY 12/19/23
Review of Systems
-
History Source: Family ( Mabel and son Desmond at bedside)
A 12 point ROS was completed and negative except as noted: Yes
Constitutional: Reports Fever; Denies Chills
EENT: Reports Other (Reported increased confusion from baseline per ); Denies Sore Throat or Runny Nose
Respiratory: Reports Cough (Productive dark yellow per ); Denies Trouble Breathing
Cardiac: Denies Chest Pain, Diaphoresis, Palpitations or Syncope
Abdomen/GI: Denies Abdominal Pain, Nausea, Vomiting, Diarrhea, Constipated, Bloody Stools or Black Stools
: Denies Dysuria, Frequency, Flank Pain, Incontinence, Difficulty Voiding or Urgency
Musculoskeletal: Denies Joint Pain, Joint Swelling or Edema
Skin: Denies Itching or Rash
Neurological: Reports Weakness; Denies Dizzy or Headache
Endocrine: Reports No Symptoms
Hematologic/Lymphatic: Reports No Symptoms
Psych: Reports Calm
Physical Exam
Vital Signs
Vital Signs
Temp Pulse Resp BP Pulse Ox
99.6 F 61 16 114/62 95
12/19/23 19:21 12/19/23 21:45 12/19/23 21:45 12/19/23 21:00 12/19/23 21:45
Physical Exam
General: Comfortable and Other (Patient with baseline dementia is currently oriented to name, Mabel only); No Fever or Chills
HEENT: NormoCephalic, Anicteric, PERRLA, [place] Conjunctivae and No Ptosis
Respiratory: Clear; No Wheezes, Rales or Rhonchi
Cardiac: S1/S2 and Regular Rhythm; No Murmur, Rub, Gallop or Peripheral Edema
Breast: Deferred by me
GI: Soft, Non Tender, Non Distended, Normal Bowel Sounds and No Hepatosplenomegaly
Rectal: Deferred by Provider
Genito-urinary: Deferred by me
Musculoskeletal: No Clubbing, No Cyanosis and No Edema
Skin: Warm and Dry; No Rash
Laboratory Results
-
12/19/23 19:35
12/19/23 19:35
Laboratory Results
Total Bilirubin 1.4 mg/dl (0.2-1.3) H 12/19/23 19:35
AST 28 U/L (17-59) 12/19/23 19:35
ALT 23 U/L (0-50) 12/19/23 19:35
Alkaline Phosphatase 90 U/L (38-126) 12/19/23 19:35
Impression/Plan
-
Impression/plan:
Observation telemetry
#Encephalopathy on chronic senile Dementia with history of behavioral disturbance
# Chronic senile dementia baseline oriented to name, occasionally son normally walks with walker needs assist with all ADLs
Per prior records behavioral disturbance gets exacerbated with quinolone therapy
UA negative, CXR negative, COVID/flu negative
99.6F
WBC 3.9 increased from 1.9 on 12/07/2023
-Check lactic acid , blood cultures x 2, Pro-Josue
-Continue Zoloft 150 mg daily, lorazepam 0.5 mg twice daily as needed anxiety
-Continue Tylenol as needed fever, headache
Unclear reason why patient is on atomoxetine
-Speech swallow eval
-PT/OT/case management eval
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
#Chronic ambulatory dysfunction uses walker at baseline
-Recent COVID swab of 12/07/2023
-IV NSS 60 cc an hour x 1 L, PT/OT eval
#Hx MDS with pancytopenia
#Multilevel disc herniation cervical spine with central canal stenosis diffuse bone marrow signal abnormality at the calvarium consistent with myelodysplastic syndrome
WBC 3.9 was 1.9 on 12/07/2023 baseline appears 2.2
PLT 45 appears baseline
Hgb 11.2
-Continue prednisone 10 mg daily
-Follow CBC
# 2023 brain MRI 2.6 cm meningioma left middle cranial fossa causing mass effect left temporal lobe
#Paroxysmal atrial tachycardia/A-fib
-Continue metoprolol 0.5 twice daily at 11 and 1500
- not on OAC given fall/bleed risk
#Orthostatic hypotension
BP 114/62
-Continue midodrine 10 mg 0900, 1300
#Urinary cystitis September 2023 with passing clots
Hx BPH
-Bladder scan protocol
DVT prophylaxis
Plt 45 SCDs
DNR per Mabel at bedside
--- NOTE | 2023-12-19 23:45 | W.PN.UPDATE ---
Update Note
Progress Note Update
I cannot get any information from the patient as
Information gathered by chart review and speaking with the ER staff.
This note serves as an addendum to the H&P by ethical hacker DAMION Yoanna GRESHAM
HPI
88y M BiB family with PMH significant for dementia, MDS , Prx AF, Prx AT, Postural hypotension, HX Vasovagal syncope who presents to ED for evaluation of increased confusion and weakness.
- reports patient was sitting on the toilet and passed out.
- Reports T 100. 2 at home . T 99 at ER
- He was given Tylenol both at 11:30 AM and 3 PM.
- associated with acute on chr ambulatory dysfunction ( use walker)
- does report patient has had a cough. He has had a little to eat and drink today.
PHX; as above
Reviewed VS: T 99.6 HR 60 BP 115/60
PE
Gen: alert , confused
HEENT: symmetric df
Neck: supple
Lungs: symmetric AE
Cor: RRR S1 S2
Abdomen: soft
MANAGER DISTRIBUTION C[facility]: [facility]
MS: no edema
Psych: pleasantly confused
Data
WCC 3.9 - reactive leucocytosis - baseline low 2s
Hgb 11.2 - basline is low 11s
Na 134
BUN 26
eGFR > 60
Pending PCT
BCx sent
LA pending
NEG UA
NEG Covid
NEG Flu A & B
CXR: No active cardiopulmonary disease.
ASSESSMENT & PLAN
Felipe Fever 102 @ home with relative leucocytosis of uncertain source
Recently POS Covid ( 12/07/23)
Hemodynamically stable
HX Chr pancytopenia - at baseline
HX MDS
- NEG UA. NEG CXR. NEG Covid. NEG Flu A &B
- BCx sent
- check LA
- check PCT
- Supportive care with IVF, Tylenol MI
- Hold off ABx
- ID consult
Syncope suspect vasovagal
HX chr Midodrine for posturl hypotension
HX Orthostatic Hypotension
- cont chr Midodrine
- Follow orthostatic signs during stay.
Associated weaknesses and increased confusion
Severely deconditioning post viral covid
HX Dementia with Behavioral Disturbance- progression of disease ?
- IV NS
- Risk for acute delirium / decompensation during hospital stay.
- trial of Seroquel PRN for agitation
BPH HX
- UA today a has been unremarkable.
- Bladder scan protocol to rule out retention / straight cath if needed.
Paroxysmal AT / Atrial Fibrillation
- Stable.
- cont. metoprolol.
- Not on OAC given fall / bleed risk.
MDS
- Stable. Abnormal cell counts all appear unchanged from known baseline.
- No evidence of any active bleeding, etc.
- Follow cell counts.
DVT Prophylaxis: SCDs
Code Status: Full
Obs TLM
[2023-12-20] VITALS (11 sets, daily range): BP systolic 120–169; BP diastolic 59–96; PULSE 64–98; O2SAT 98; BMI 25.6
[2023-12-20 00:28] LABS: Lactic Acid 0.7 mmol/L (0.7-2.0)
[2023-12-20 01:14] LABS: Procalcitonin 0.24 ng/ml (0.0-0.25)
[2023-12-20] MEDS: NSS 1000 IV (02:26)
[2023-12-20 07:49] LABS: ALT (SGPT) 20 U/L (0-50); AST (SGOT) 24 U/L (17-59); Albumin 3.7 g/dl (3.5-5.0); Alkaline Phosphatase 87 U/L (38-126); Blood Urea Nitrogen 21 mg/dl (9-20); Calcium 9.1 mg/dl (8.4-10.2); Carbon Dioxide 21 mmol/L (22-30); Chloride 104 mmol/L (98-107); Estimated Creatinine Clearance 61 ml/min; Glucose 94 mg/dl (70-99); Potassium 4.3 mmol/L (3.5-5.1); Sodium 139 mmol/L (135-145); Total Bilirubin 1.5 mg/dl (0.2-1.3); Total Protein 6.2 g/dl (6.3-8.2); eGFR > 60.00
[2023-12-20 08:21] LABS: Hematocrit 35.7 % (39.0-52.0); Hemoglobin 11.3 g/dL (13.0-18.0); Mean Corp Hgb Conc. 31.7 g/dL (33.0-37.0); Mean Corpuscular Volume 85.4 fL (80.0-94.0); Platelet Count 30 10^3/uL (130-400); Red Blood Cell Count 4.18 10^6/uL (4.70-6.10); Red Cell Dist. Width 19.9 % (11.5-14.5)
[2023-12-20 08:22] LABS: Atypical Lymphocytes 4 %; Band Neutrophils 0 % (0-3); Eosinophils 1 % (0-6); Lymphocytes 47 % (20-51); Metamyelocytes 3 % (-); Monocytes 5 % (2-9); Normal RBC Morphology Yes; Platelets Checked Yes; Segmented Neutrophils 40 % (42-75)
[2023-12-20 08:23] LABS: Nucleated Red Blood Cells 1 (-); Total Cells Counted 100
[2023-12-20 08:25] LABS: Absolute Neutrophils -Man Diff 0.9 10^3/uL (1.4-6.5); White Blood Cell Count 2.4 10^3/uL (4.8-10.8)
[2023-12-20] MEDS: ZOLOFT 150 MG PO (09:16)
[2023-12-20] MEDS: ProAmatine 10 MG PO ×2 (09:16→13:55)
[2023-12-20] MEDS: DELTASONE 10 MG PO (09:16)
--- NOTE | 2023-12-20 09:35 | PTOTSP ---
Speech Language Pathology
Pt seen for clinical bedside swallow evaluation. Set pt up for oral care, and he was able to brush teeth. P.O. trials of puree, regular solids, and thin liquids provided. Adequate mastication, bolus formation, and A-P transit noted with no oral
residue. Oral holding at times prior to initiation of swallow, but able to initiate independently. No overt signs of aspiration. Also seen with med pass with RN. First attempted whole in puree, but pt spit out pill. Provided whole with water,
and pt was able to take them this way, again with oral holding prior to swallow initiation. CXR clear on admission. Cognitive status increases pt risk for aspiration.
Recommend:
(1) Regular solids/thin liquids
(2) Aspiration precautions: set up assist with intermittent supervision, slow rate, ensure oral cavity clear post P.O. intake
(3) Meds 1 at a time whole with water as tolerated
(4) IMPREGNATING TANK OPERATOR to sign off. Please reconsult as indicated
--- NOTE | 2023-12-20 10:01 | PTCARENOTE ---
pt admitted to 2N from the ED overnight. pt is from home with his , uses walker at baseline. pt aaox1. on bed and chair alarm. pt worked with ST, regular diet placed. pills one at a time and lots of cueing was needed to get initial intake in
progress. no cough or issues with swallowing for this nurse. pt afebrile and vitals stable for this nurse. orthos (-). oral care completed at bedside. pt slow speech and [place].
--- NOTE | 2023-12-20 10:53 | W.PN.HOSP.TC ---
Addendum entered and electronically signed by Bora Contreras MD 12/20/23 15:49:
Seen and examined by me independently in collaboration with the medical representative.
Lab data and imaging data reviewed.
Addendum as below :
According caregiver who was attending to him yesterday but was not present in the bathroom at the time of syncope states patient was running fevers and wanted to and was not feeling well. He also had issues with blood pressure systolic in 90s
yesterday. He has a prior history of syncope. He also has a history of orthostatic hypotension on midodrine. He is nontoxic looking. Hemodynamically stable currently. X 1 orthostasis negative. EKG with a sinus rhythm. Echocardiogram with
normal EF recently. suspect syncope may be related to hemodynamics on top of his orthostatic hypotension from fever and infection. Continue to monitor telemetry. Continue with IV fluids.
Febrile illness. 12 days ago he was positive for COVID-19 infection. Chest x-ray without any focal abnormality. UA without pyuria. Patient with MDS and neutropenia with neutrophils around 900. His COVID-19 testing was negative on admission.
Unclear source of infection currently. ID consulted. Continue to hold antibiotics and follow symptoms and any focal sites.
Rest as below
Portions of this chart may have been created with voice recognition software. Occasional wrong word or 'sound alike' substitutions may have occurred due to the inherent limitations of voice recognition software.
Original Note:
Today's Communication/Plan
-
Monitor cell lines
Speak to and get information as patient is confused and cannot provide any
Assessment / Plan
Assessment / Plan
Assessment:
88 male past medical history significant for dementia, myelodysplastic syndrome, paroxysmal A-fib, vasovagal syncope presents to the ER for evaluation of increased confusion and weakness. Per family patient has also had a low-grade fever and
productive cough
Plan:
#Syncope
Suspect vasovagal
Per caregiver patient was hypotensive at home before having a syncopal episode
Reported blood pressures were systolics of 90s and diastolics in the 50s
EKG in the emergency department was normal
Previous echo reviewed and no valvular disease was seen
Orthostatics were negative, will continue to check twice daily
Continue home midodrine for postural hypotension
#Leukopenia
#Thrombocytopenia
Past medical history myelodysplastic syndrome, very likely cause of low cell counts
Per family patient had a fever of 102 at home
Patient has been afebrile during his stay
Was recently COVID-positive- 12/07/2023
Patient hemodynamically stable
Blood cultures drawn
UA negative, chest x-ray negative, COVID-negative, flu negative
Currently holding antibiotics
Supportive care with IV fluids and Tylenol
Patient not sure who flooring machine operator is, will ask
#Weakness and increased confusion
Patient severely deconditioned, assuming post COVID
Past medical history dementia with behavioral disturbances
Delirium precautions, redirection as needed
Currently patient is pleasant and nonaggressive
Patient has trial of Seroquel as needed for agitation
#History of BPH
UA unremarkable
Bladder scan protocol to rule out retention, straight cath if needed
#Paroxysmal atrial fibrillation
Currently in sinus
Continue metoprolol
#Myelodysplastic syndrome
Unknown patient's baseline
Patient has abnormal cell counts
No evidence of any active bleeding
Trend with daily CBC with differential
DVT prophylaxis: SCDs
CODE STATUS: Full code
Diet: Regular
Anticipated Discharge: 24 - 48 hours
Subjective/Interval History
-
Date of Service: December 20, 2023
nurse reports fever and cough overnight
Objective Data
-
Labs:
Laboratory Results
12/20/23
06:21
WBC 2.4 L*
Hgb 11.3 L
Hct 35.7 L
Plt Count 30 L D
Sodium 139
Potassium 4.3
Chloride 104
Carbon Dioxide 21 L
BUN 21 H
Creatinine 0.9
Glucose 94
Calcium 9.1
Total Bilirubin 1.5 H
AST 24
ALT 20
Alkaline Phosphatase 87
Vital Signs:
Vital Signs
Temp Pulse Resp BP Pulse Ox
98.2 F 78 18 129/68 98
12/20/23 07:20 12/20/23 07:20 12/20/23 07:20 12/20/23 09:16 12/20/23 09:56
Review of Systems
-
Unable to obtain full review of systems at this time due to: Dementia
Physical Exam
-
General: Well Developed, Well Nourished, No Apparent Distress and Comfortable
Respiratory: Clear to Auscultation
Cardiac: Regular Rhythm and S1/S2
GI: Soft, Nontender, Nondistended and Normal Bowel Sounds
Skin: Warm and Dry
Neuro: Awake; Negative Alert, Oriented or AO x 3
Psych: Confused; Negative Intact Judgement/Insight
Data Reviewed
-
Labs: Labs Reviewed by me and Discussed with Physician
[2023-12-20] MEDS: TOPROL XL 12.5 MG PO ×2 (11:56→17:25)
--- NOTE | 2023-12-20 12:07 | CM ---
Reviewed the chart notes and spoke with the patient and his caregiver at the bedside. The patient is admitted under observational status. The [place] was provided and explained. The patient no caregiver had any questions with regards to the letter.
The patient resides with his spouse in a one story home with two steps to enter. The patient has a rolling walker and shower chair in the home. The patient has had [facility] in the past and [facility]. The patient's
pharmacy of choice is the [facility]. The patient has a caregiver M 10a-2p, Tu 9a-3p, Th 9a-3p, F 1p-5p, Sa 9a-3p and Sun 10a-2p. CM continues to be available to patient/family and is monitoring medical plan for needs at discharge.
Plan: Discharge plans will depend on the patient's progress. Hopefully home with resumption of caregiver.
--- NOTE | 2023-12-20 14:03 | CON.ID ---
Consultation
-
Date/Time Consultation Requested: 12/20/2023 00:07
Date/Time Consultation Performed: 12/20/2023 1333
Requesting Provider: Yoanna Mtz
Performing Provider: Dr. Giraldo
Reason for Consultation: Encephalopathy; recent COVID infection
Chief Complaint / Past History
History of Present Illness
Desmond Allen is a 88-year-old man with a significant past medical history of underlying dementia being evaluated at the request of Yoanna Mtz in regards to encephalopathy. History is obtained from chart review, patient interview, history also was
obtained from the patient's who was at the bedside.
The patient initially presented to [facility] on 12/07/2023 following his calling EMS secondary to generalized weakness and increasing confusion. Workup in the ER revealed that he was positive for COVID-19. The patient was discharged to
home. At that time, no COVID therapy was given as he was not having any other symptomatologies, including no respiratory symptomatology.
The patient presents back to the emergency room on 12/18 secondary to worsening encephalopathy. The family felt that the patient was more confused than normal that day, and generally appeared weaker. His reported that he had been on the toilet
at one point and passed out, possibly secondary to a vagal response. He has a hx of hypotension. Workup in the emergency room revealed mild leukopenia, along with thrombocytopenia. The family called EMS given low-grade fevers at home and overall
decreased urinary output throughout the day.
Currently the patient denies any specific complaints. A cough is noted, but is nonproductive. No abdominal pain.
Past History
Additional Past Medical History:
Arrhythmia
Dementia
Myelodysplasia
Orthostatic hypotension
Additional Past Surgical History:
Cholecystectomy
Lumbosacral decompression x 4
Right hip arthroplasty
Allergy History:
latex Allergy (Intermediate, Verified 09/29/23 21:01)
Rash
Medications Reviewed: Yes
Current Antibiotics:
None
Social History
Tobacco: Non-Smoker
Alcohol: None
Drug: None
Personal:
Living: With Family
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
Family History
Family History: Not Pertinent
Review of Systems
Vital Signs
Temp Pulse Resp BP Pulse Ox
97.6 F 70 16 135/59 99
12/20/23 11:00 12/20/23 11:56 12/20/23 11:00 12/20/23 11:56 12/20/23 11:00
Physical Exam
Physical Exam
Constitutional: No Acute Distress, Comfortable, Chronically Ill and Non-toxic
Head: Normocephalic
Eyes: Pupils Equal, Pupils Round, No Conjunctival Hemorrhage and Sclera Anicteric
Oral: No Thrush and No Ulcers
Cardiovascular: Regular Rate and S1/S2; Negative S3/S4
Pulmonary: Clear; Negative Wheezes, Rales or Rhonchi
Gastrointestinal: Soft, Non Tender, Non Distended, Normal Bowel Sounds, No Rebound and No Guarding
Genito-Urinary: Negative [place], Suprapubic Tenderness or CVA Tenderness
Extremities: Negative Edema, Cyanosis, Erythema, Splinter Hemorrhage or Venous Insufficiency
Skin: Warm and Dry; Negative Rash or Jaundice
Neurological: Awake and Alert
Psychological: Confused (mild)
.
Lab / Diagnostic Study Results
12/20/23 06:21
12/20/23 06:21
Abs Immat Gran (auto) 0.0 10^3/uL (0-0.05) 12/19/23 19:35
Absolute Neuts (auto) 2.2 10^3/uL (1.4-6.5) 12/19/23 19:35
Absolute Lymphs (auto) 1.1 10^3/uL (1.2-3.4) L 12/19/23 19:35
Absolute Monos (auto) 0.6 10^3/uL (0.1-0.6) 12/19/23 19:35
Absolute Basos (auto) 0.0 10^3/uL (0-0.2) 12/19/23 19:35
Total Counted 100 12/20/23 06:21
Immature Gran % 1.0 % (0-0.5) H 12/19/23 19:35
Neutrophils % 56.1 % (42.2-75.2) 12/19/23 19:35
Lymphocytes % 28.1 % (20.5-51.1) 12/19/23 19:35
Monocytes % 14.5 % (1.7-9.3) H 12/19/23 19:35
Eosinophils % 0.0 % (0-6) 12/19/23 19:35
Basophils % 0.3 % (0-2) 12/19/23 19:35
Abs Neuts (Manual) 0.9 10^3/uL (1.4-6.5) L* 12/20/23 06:21
Segmented Neutrophils 40 % (42-75) L 12/20/23 06:21
Band Neutrophils 0 % (0-3) 12/20/23 06:21
Lymphocytes (Manual) 47 % (20-51) 12/20/23 06:21
Eosinophils (Manual) 1 % (0-6) 12/20/23 06:21
Lactic Acid 0.7 mmol/L (0.7-2.0) 12/20/23 00:06
Procalcitonin 0.24 ng/ml (0.0-0.25) 12/20/23 00:06
Ur Squamous Epith Cells 0-2 /LPF (Few) 12/19/23 20:42
Microbiology Results
Micro:
12/20/23 00:06 Blood Culture - Pending
Blood/Venous
12/20/23 00:06 Blood Culture - Pending
Blood/Venous
12/19/23 19:35 Influenza Types A & B (RANJITH) - Final
Nasal Swab Negative for Influenza A & B, NAAT
Negative results must be combined with clinical observations
and patient history.
Nucleic Acid Amplification test (NAAT)performed on the
[employer] NOW platform.
Imaging:
12/19/2023 CXR (2 view): The cardiac silhouette and pulmonary vasculature are radiographically within normal limits. There are no acute mediastinal abnormalities. There are no acute pleural or parenchymal abnormalities. Please see full dictation
for additional detail. Film personally viewed.
Assessment / Plan
Encephalopathy
- suspect TME, possibly from recent COVID
Leukopenia
Arrhythmia
Dementia
Myelodysplasia
Orthostatic hypotension
Recommendations:
At present, no apparent acute infectious process noted. COVID-negative. UA not indicative of UTI.
No need to initiate antibiotic therapy.
Blood cultures are pending; will continue to monitor.
Trend white count and temperature curve.
--- NOTE | 2023-12-21 03:03 | DOWNTIME ---
There was a [employer] Client General Merchandise Manager Downtime on 12/21/2023 from 0100 to 12/21/2023 at 0300. Downtime documentation of patient's care, including medication administrations, has been reconciled in the electronic record per guidelines. Refer to the
patient's paper chart under the miscellaneous tab to see printed paper medication records and downtime forms.
[2023-12-21 03:44] VITALS: BP 168/85
[2023-12-21 07:46] VITALS: BP 147/78
[2023-12-21 08:01] LABS: Hematocrit 34.1 % (39.0-52.0); Hemoglobin 10.8 g/dL (13.0-18.0); Mean Corp Hgb Conc. 31.7 g/dL (33.0-37.0); Mean Corpuscular Hgb 27.2 pg (27.0-31.0); Mean Corpuscular Volume 85.9 fL (80.0-94.0); Platelet Count 31 10^3/uL (130-400); Red Blood Cell Count 3.97 10^6/uL (4.70-6.10); Red Cell Dist. Width 19.7 % (11.5-14.5); White Blood Cell Count 2.2 10^3/uL (4.8-10.8)
[2023-12-21] MEDS: ZOLOFT 150 MG PO (08:02)
[2023-12-21] MEDS: DELTASONE 10 MG PO (08:02)
[2023-12-21] MEDS: ProAmatine 10 MG PO (08:03)
[2023-12-21 08:20] LABS: ALT (SGPT) 18 U/L (0-50); AST (SGOT) 20 U/L (17-59); Albumin 3.6 g/dl (3.5-5.0); Alkaline Phosphatase 90 U/L (38-126); Blood Urea Nitrogen 14 mg/dl (9-20); Calcium 9.1 mg/dl (8.4-10.2); Carbon Dioxide 26 mmol/L (22-30); Chloride 100 mmol/L (98-107); Estimated Creatinine Clearance 68 ml/min; Glucose 97 mg/dl (70-99); Potassium 3.6 mmol/L (3.5-5.1); Sodium 138 mmol/L (135-145); Total Bilirubin 1.1 mg/dl (0.2-1.3); Total Protein 6.2 g/dl (6.3-8.2); eGFR > 60.00
--- NOTE | 2023-12-21 08:46 | W.PN.HOSP.TC ---
Addendum entered and electronically signed by Bora Contreras MD 12/21/23 16:35:
Seen and examined by me independently in collaboration with the biomedical engineering aide.
Lab data and imaging data reviewed.
Addendum as below :
Patient without further fevers. Hemodynamically stable. Blood pressure improved. Tolerating diet including liquids. According to the family patient is at his baseline.
Chest clear
Heart sinus and persisted regular
Pleasantly confused with a bright smile.
Lab data no granulocytopenia, mild neutropenia, thrombocytopenia discussed with daughter who is in fact his primary care physician. Suspect some fluctuation may be secondary to his viral/COVID infection and she is going to repeat them as an
outpatient. Currently without any signs of bleeding. Again no fevers. Hold on any prophylactic antibiotics for now unless until it is persistent neutropenia.
Original Note:
Today's Communication/Plan
-
Discharge home
Assessment / Plan
Assessment / Plan
Assessment:
88 male past medical history significant for dementia, myelodysplastic syndrome, paroxysmal A-fib, vasovagal syncope presents to the ER for evaluation of increased confusion and weakness. Per family patient has also had a low-grade fever and
productive cough
Plan:
#Syncope
Suspect vasovagal
Per caregiver patient was hypotensive at home before having a syncopal episode
Reported blood pressures were systolics of 90s and diastolics in the 50s
EKG in the emergency department was normal
Previous echo reviewed and no valvular disease was seen
Orthostatics were negative, will continue to check twice daily
Continue home midodrine for postural hypotension
#Leukopenia
#Thrombocytopenia
Past medical history myelodysplastic syndrome, very likely cause of low cell counts
Per family patient had a fever of 102 at home
Patient has been afebrile during his stay
Was recently COVID-positive- 12/07/2023
Patient hemodynamically stable
Blood cultures drawn, demonstrated no growth in 24 hours
UA negative, chest x-ray negative, COVID-negative, flu negative
Currently holding antibiotics
Supportive care with IV fluids and Tylenol
Patient not sure who touring production manager is, will ask
#Weakness and increased confusion
Patient severely deconditioned, assuming post COVID
Past medical history dementia with behavioral disturbances
Delirium precautions, redirection as needed
Currently patient is pleasant and nonaggressive
Patient has trial of Seroquel as needed for agitation
#History of BPH
UA unremarkable
Bladder scan protocol to rule out retention, straight cath if needed
#Paroxysmal atrial fibrillation
Currently in sinus
Continue metoprolol
#Myelodysplastic syndrome
Unknown patient's baseline
Patient has abnormal cell counts
No evidence of any active bleeding
Trend with daily CBC with differential
Patient's MO 0.6, afebrile
No antibiotics required
DVT prophylaxis: SCDs
CODE STATUS: Full code
Diet: Regular
Anticipated Discharge: Today
Subjective/Interval History
-
Date of Service: December 21, 2023
Objective Data
-
Labs:
Laboratory Results
12/21/23
06:29
WBC 2.2 L*
Hgb 10.8 L
Hct 34.1 L
Plt Count 31 L
Sodium 138
Potassium 3.6
Chloride 100
Carbon Dioxide 26
BUN 14
Creatinine 0.8
Glucose 97
Calcium 9.1
Total Bilirubin 1.1
AST 20
ALT 18
Alkaline Phosphatase 90
Vital Signs:
Vital Signs
Temp Pulse Resp BP Pulse Ox
97.8 F 79 16 147/78 98
12/21/23 07:46 12/21/23 08:03 12/21/23 07:46 12/21/23 08:03 12/21/23 07:46
I&O
12/20/23 12/21/23 12/22/23
06:59 06:59 06:59
Intake Total 0 / 0
Balance 2339 / 2339
[2023-12-21 08:56] LABS: % Basophils 0.5 % (0-2); % Immature Granulocytes 1.8 % (0-0.5); % Lymphocytes 55.9 % (20.5-51.1); % Monocytes 16.2 % (1.7-9.3); % Neutrophils 25.6 % (42.2-75.2); Absolute Lymphocytes 1.2 10^3/uL (1.2-3.4); Absolute Monocytes 0.4 10^3/uL (0.1-0.6); Absolute Neutrophils 0.6 10^3/uL (1.4-6.5); Nucleated Red Blood Cells % 1.4 % (-)
--- NOTE | 2023-12-21 11:34 | CM ---
Addendum entered by Tiesha Lombardo RN 12/21/23 11:42:
[facility] fax: [phone]
Original Note:
Reviewed the chart notes and spoke with the patient and his spouse at the bedside. Patient's spouse anticipates the patient being discharged to home today. PT recommending home health. Referral for VN sent via [facility]. CM continues to be
available to patient/family and is monitoring medical plan for needs at discharge.
Plan: Discharge to home when medically stable with [facility].
[2023-12-21 11:39] VITALS: BP 122/67; BP 123/65; BP 133/94; PULSE 68; PULSE 72; PULSE 73
[2023-12-21 11:40] VITALS: BP 133/94
[2023-12-21] MEDS: TOPROL XL 12.5 MG PO (12:00)
[2023-12-21] MEDS: ProAmatine PO (12:00)
--- NOTE | 2023-12-21 12:55 | PTCARENOTE ---
Patient discharged home with VN. This RN reviewed patient's medications/discharge instructions with patient's spouse and caregiver at bedside, both verbalized understanding. 2 R arm IVs and tele pack removed by this RN. Printout of patient's labs
provided to spouse. Patient dressed and belongings gathered in room with assistance of spouse and caregiver. Patient being transported home by spouse, taken down to [facility] via staff escort and wheelchair.
--- NOTE | 2023-12-21 15:00 | W.DCSUMMARY ---
Discharge Summary
Discharge Data
Date of Admission: 12/19/23
Date of Discharge: 12/21/23
-
Pending Results: Yes
Additional Pending Results:
Blood cultures
Hospital Course
Discharging Physician : Ben Bryson
Disposition : Home with home health
Primary care physician : Dr. Stewart
Principal Discharge diagnosis : Vasovagal syncope
Chronic Discharge diagnosis : Bile dysplastic syndrome, leukopenia, thrombocytopenia, weakness, confusion, benign prostatic hyperplasia, paroxysmal atrial fibrillation
Hospital Course : 88-year-old male past medical history of dementia, myelodysplastic syndrome and recent COVID infection presented for syncope while he was on the toilet. Per family patient had a blood pressure with systolics in the 90s and when
they checked his temperature he had a temperature of 100.2. Per the , patient was acting more confused than normal. Patient's also endorsed a nonproductive cough. Chest x-ray, urinalysis, COVID and flu testing were all negative in the
ED. blood cultures were also drawn and at the time of discharge they have only preliminary resulted with no growth in 24 hours. Patient was admitted to [facility] for further evaluation and management. During his stay patient was pleasantly confused,
however he he did not have any fever spikes. His white blood cell count was noted to be low and his platelets were also low. Low counts were thought to be due to myelodysplastic syndrome. Patient was placed on neutropenic precautions for an ANC
of 0.6. Infectious disease was consulted to evaluate the patient. As the patient was afebrile and had no identifiable source, all testing was negative, patient was not started on any antibiotics or antivirals. The etiology of the patient's
syncopal episode was never elicited, it is assumed vasovagal in nature. EKG in the emergency department was normal, previous echo was reviewed and no valvular disease was seen. Patient had multiple negative orthostatic vitals. Per patient's ,
he was at his baseline mentation at the time of discharge. Recommend the patient follow-up with his primary care physician (daughter) within 1 week of discharge for follow-up of his syncopal episode and for his blood counts. If blood cultures
return positive, will call Dr. Tiffany Phillips and let her know of the results and which antibiotic cultures are sensitive to. Patient was discharged home with visiting nursing and will follow-up with his primary care physician.
Important imaging findings :
12/07/2023 CT head, impression:
No acute intracranial abnormality noted.
Global atrophy with sequelae of mild small vessel ischemic disease, similar to prior.
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
12/07/2023 chest x-ray, impression:
Low lung volumes with likely bibasilar atelectasis.
12/19/2023 chest x-ray, impression:
No active cardiopulmonary disease.
Procedure findings :
No procedures
Discharge Plan
-
Patient Disposition: Home with Home Care
Discharge Diagnosis/Procedures: Syncope, leukopenia, neutropenia, weakness, dementia
Condition: Good
Diet: No restrictions
Activity: As tolerated
Driving Restrictions: No driving
Bathing Restrictions: None
Other Services: VN
Activity Restrictions/Additional Instructions:
Please follow up with your primary care physician within one week of discharge for evaluation of your cell counts and managment of your chronic medical conditions
Referrals:
Anay Stewart DO [Family Provider] - in less than 1 week
Prescriptions:
Continued
sertraline 100 mg Tablet
150 mg PO DAILY
therapeutic multivitamin Tablet
1 tab PO DAILYPRN PRN (Reason: supplement)
lorazepam 0.5 mg Tablet
0.5 mg PO BIDPRN PRN (Reason: anxiety)
Patient Comments:
12/19/2023: last filled 10/24/23, 60 tabs for 20 days from [id number]
acetaminophen 500 mg Tablet
1,000 mg PO Q6HPRN PRN (Reason: mild pain/fever)
midodrine 10 mg tablet
10 mg PO BID@0900,1300
metoprolol succinate 25 mg tablet extended release 24 hr
12.5 mg PO BID@1100,1500
prednisone 10 mg tablet
10 mg PO DAILY
atomoxetine 25 mg capsule
25 mg PO DAILY
Discharge Orders:
Discharge Patient (As Directed); Ordered 12/21/23
Ordered By: Chris Reynolds
Discharge Date and Time
Discharge Date/Time: 12/21/23 13:08
Print Language: S[place]
== END 2023-12-21 13:08 | disposition home health service (06) ==
LOC: 2 NORTH 23:55
PROVIDERS: Clinical Nurse Specialist Family Health; Nurse Practitioner; ADMITTING PHYSICIAN Internal Medicine; ATTENDING PHYSICIAN Internal Medicine; EMERGENCY PHYSICIAN Emergency Medicine; FAMILY PHYSICIAN Family Medicine; OTHER PHYSICIAN Internal Medicine Infectious Disease
DX: R55 Syncope and collapse (principal); R50.9 Fever, unspecified; R53.1 Weakness; F03.918 Unspecified dementia, unspecified severity, with other behavioral disturbance; D46.9 Myelodysplastic syndrome, unspecified; D61.818 Other pancytopenia; R79.89 Other specified abnormal findings of blood chemistry; R00.1 Bradycardia, unspecified; R05.9 Cough, unspecified; I49.1 Atrial premature depolarization; D32.9 Benign neoplasm of meninges, unspecified; G93.40 Encephalopathy, unspecified; D69.6 Thrombocytopenia, unspecified; I47.19 Other supraventricular tachycardia; I48.0 Paroxysmal atrial fibrillation; N40.0 Benign prostatic hyperplasia without lower urinary tract symptoms; R26.2 Difficulty in walking, not elsewhere classified; M48.02 Spinal stenosis, cervical region; G89.29 Other chronic pain; Z11.52 Encounter for screening for COVID-19; Z90.49 Acquired absence of other specified parts of digestive tract; Z86.16 Personal history of COVID-19; Z91.040 Latex allergy status; Z79.52 Long term (current) use of systemic steroids; Z66 Do not resuscitate
CPT/HCPCS: 51701; 51798; 71046; 80053; 81003; 81015; 83605; 84145; 85025; 87040; 87502; 87811; 92610; 93005; 96360; 97162; 97166; 99285; G0378

== ENCOUNTER 2024-03-25 14:49 | Inpatient (IN) | payer MEDICARE, BC, SELFPAY ==
[2024-03-25] VITALS (24 sets, daily range): BP systolic 91–159; BP diastolic 34–130; BMI 25.5
[2024-03-25 12:07] LABS: Hematocrit 42.2 % (39.0-52.0); Hemoglobin 12.8 g/dL (13.0-18.0); Mean Corp Hgb Conc. 30.3 g/dL (33.0-37.0); Mean Corpuscular Hgb 27.1 pg (27.0-31.0); Mean Corpuscular Volume 89.4 fL (80.0-94.0); Red Blood Cell Count 4.72 10^6/uL (4.70-6.10); Red Cell Dist. Width 19.2 % (11.5-14.5); White Blood Cell Count 5.5 10^3/uL (4.8-10.8)
--- NOTE | 2024-03-25 12:08 | ED.GENMED ---
History of Present Illness
General
Chief Complaint: Fainting/Passed Out
Source: patient
Exam Limitations: none
Time Seen by Provider: 03/25/24 11:47
Nursing documentation reviewed up to this point in time: agreed with
History of Present Illness
History of Present Illness:
88-year-old male with multiple syncope episodes today. Hypotensive at home. Patient is on midodrine, and has history of mild dysplastic syndrome. Syncope occurred after a bowel movement. He has a history of vasovagal syncope.
Past History
Past History
ED Past Medical History: Arrthythmia and Other (Dementia, myelodysplasia, orthostatic hypotension)
ED Past Surgical History: Cholecystectomy and Orthopedic (Lumbosacral decompression x 4, right THR)
Social History
Tobacco: Non-smoker
Alcohol: None
Drug: None
Personal:
Living: with family
Employment: Retired
Family History
Family History: Other (Reviewed and noncontributory)
Review of Systems
Review of Systems
Allergies reviewed?: Yes
All Other Systems: Not applicable
Constitutional: Reports no symptoms
EENT: Reports no symptoms
Respiratory: Reports no symptoms
Cardiac: Reports syncope
ABD/GI: Reports no symptoms
: Reports no symptoms
Musculoskeletal: Reports no symptoms
Skin: Reports no symptoms
Neurological: Reports no symptoms
Endocrine: Reports no symptoms
Hematologic/Lymphatic: Reports no symptoms
Psychiatric: Reports no symptoms
Phy Exam
Physical Exam
Physical Exam:
Physical Exam
General: no apparent distress, afebrile
Neck: supple. no meningeal signs. normal posterior pharynx
Heart: s1/s2 tachycardia, no murmur. equal radial
pulses.
HEENT: Pupils equal round reactive to light, EOMI
Lungs: no acute respiratory distress. clear bilaterally
Abdomen: normal bowel sounds. not tender. no CVAT
Neuro: alert and oriented to person and place. no focal neurological deficits cranial nerves II through XII intact
Skin: no rash
Psychiatric: well kept. interactive and cooperative
Extremities: no edema. no calf tenderness. negative homans. good distal pulses
Course
Orders/Labs/Results
Orders:
Orders
03/25/24 11:38
Electrocardiogram (*1) Urgent
Reason for Study: Syncope
03/25/24 11:40
EKG- Treatment ONCE
03/25/24 11:46
Complete Blood Count/With Diff Urgent
Comprehensive Metabolic Panel Urgent
Manual Differential Urgent
Troponin I Urgent
03/25/24 12:10
0.9% Sodium Chloride 1000 ml [Nss] 1,000 ml IV BOLUS
03/25/24 12:13
Straight cath- Treatment ONCE
03/25/24 13:26
Urinalysis Reflex To Culture Urgent
Date Specimen was Collected: 03/25/24
Time Specimen was Collected: 12:15
Urine Microscopic Reflex Cult Urgent
Urine Culture Urgent
EMMANUELLE Source: U
Specimen Description:
Date Specimen was Collected: 03/25/24
Time Specimen was Collected: 12:15
03/25/24 13:49
CefTRIAXone [Rocephin] 1,000 mg IV NOW STA
03/25/24 14:00
Blood Culture Q30M
EMMANUELLE Source: Blood/Venous
Specimen Description:
03/25/24 14:30
Blood Culture Q30M
EMMANUELLE Source: Blood/Venous
Specimen Description:
Abnormal Lab Results
03/25/24 03/25/24
11:46 13:26
Hgb 12.8 L g/dL
(13.0-18.0)
MCHC 30.3 L g/dL
(33.0-37.0)
RDW 19.2 H %
(11.5-14.5)
Plt Count 46 L 10^3/uL
(130-400)
Band Neutrophils 4 H %
(0-3)
Lymphocytes (Manual) 18 L %
(20-51)
Monocytes (Manual) 12 H %
(2-9)
BUN 22 H mg/dl
(9-20)
Glucose 169 H mg/dl
(70-99)
Total Bilirubin 2.0 H mg/dl
(0.2-1.3)
Troponin I 0.065 H* ng/ml
Urine Ketones 1+ A
(Negative)
Ur Occult Blood Reflex 4+ A
(Negative)
Urine Bilirubin 1+ A
(Negative)
Urine Urobilinogen 3+ A
(Neg - 1+)
Leukocyte Esterase Rfl 1+ A
(Negative)
Urine RBC 3-6 A /HPF
(0-2)
Urine WBC (Reflex) 16-20 A /HPF
(0-5)
Urine Bacteria (Reflex) Many A
(Negative)
Urine Albumin (Reflex) 2+ A
(Neg - Trace)
03/25/24 11:46
03/25/24 11:46
Vital Signs
Initial and Last Documented VS:
Initial Vital Signs
Pulse Resp
108 29
03/25/24 11:39 03/25/24 11:39
Last Documented Vital Signs
Temp Pulse Resp BP Pulse Ox
97.7 F 108 13 118/54 95
03/25/24 11:44 03/25/24 13:20 03/25/24 13:20 03/25/24 13:20 03/25/24 13:15
MDM/Problems Addressed
Differential Diagnosis Includes:
Dysrhythmia, sepsis, hypovolemia
MDM/Problems Addressed:
88-year-old male with multiple syncope episodes, UTI, mild bandemia. Admit to hospitalist. IV Rocephin ordered.
Chronic conditions affecting care: Arrhythmia, Neurological disorder (Dementia) and Cancer (MDS)
Acute Exacerbation and/or Progression of Chronic Illness: Arrhythmia, Neurological disorder (Dementia) and Cancer (MDS)
*Pulse Oximetry
Patient hypoxic: no
*EKG
Interpreted by ED Provider?: Yes
EKG Intrepretation Date: 03/25/24
EKG Intrepretation Time: 12:06
Interpretation: abnormal
Comparison EKG: no changes
Heart Rate: 106
Rate: tachycardiac
Rhythm: sinus tachycardia
[place]: normal axis
Interval: normal interval
QRS Pattern: normal QRS
Ischemia: no ischemia
*Shop Repairer Interpretation
Rate: tachycardiac
Interpretation: abnormal
Heart Rate: 105
Rhythm: sinus tachycardia
*Critical Care Note
Total Time (30-74mins, 75-104mins- exclusive of procedures): Not Applicable
Patient Management
Social determinants of health affecting care: Living situation and Strong social support
Discussion with other providers: Hospitalist
Escalation/DeEscalation of care consider admission/obs:
admit indicated
ED Attending Note
-
Portions of this chart may have been created with voice recognition software.� Occasional wrong word or��sound alike� substitutions may have occurred due to the inherent limitations of voice recognition software.
Discharge Plan
Departure
Patient Disposition: Admit
Date of Disposition: 03/25/24
Time of Disposition: 13:50
Admit to: Telemetry
Presentation/result/management discussed w/ accepting MD/DO: Hospitalist
Patient with high blood pressure during this ER visit?: No
Condition: Fair
Discharge Problem:
Syncope, Acute UTI, Thrombocytopenia
Prescriptions:
No Action
sertraline 100 mg Tablet
150 mg PO DAILY
lorazepam 0.5 mg Tablet
0.5 mg PO TIDPRN PRN (Reason: anxiety)
acetaminophen 500 mg Tablet
1,000 mg PO Q6HPRN PRN (Reason: mild pain/fever)
midodrine 10 mg tablet
10 mg PO BID@0900,1300
metoprolol succinate 25 mg tablet extended release 24 hr
12.5 mg PO DAILY@1100
prednisone 10 mg tablet
10 mg PO DAILY
Referrals:
Anay Stewart DO [Family Provider] -
Interventions
Interventions:
*Risk Screen - Suicide Last Done: 03/25/24 11:41
*General Assessment Last Done: 03/25/24 11:41
*Neglect/Abuse Screening Last Done: 03/25/24 11:41
*ED COVID-19 Vaccine History Last Done: 03/25/24 11:41
ED- Cardiac Assessment Last Done: 03/25/24 11:58
ED- Neurological Assessment Last Done: 03/25/24 11:58
Discharge Date and Time
Print Language: TONGAN
[2024-03-25 12:18] LABS: ALT (SGPT) 24 U/L (0-50); AST (SGOT) 34 U/L (17-59); Alkaline Phosphatase 99 U/L (38-126); Blood Urea Nitrogen 22 mg/dl (9-20); Calcium 8.9 mg/dl (8.4-10.2); Carbon Dioxide 22 mmol/L (22-30); Chloride 104 mmol/L (98-107); Glucose 169 mg/dl (70-99); Potassium 4.5 mmol/L (3.5-5.1); Sodium 138 mmol/L (135-145); Total Protein 6.7 g/dl (6.3-8.2); eGFR > 60.00
[2024-03-25] MEDS: NSS 1000 IV (12:19)
[2024-03-25 12:26] LABS: Troponin I 0.065 ng/ml
[2024-03-25 13:13] LABS: Absolute Neutrophils -Man Diff 3.4 10^3/uL (1.4-6.5); Band Neutrophils 4 % (0-3); Lymphocytes 18 % (20-51); Monocytes 12 % (2-9); Platelet Count 46 10^3/uL (130-400); Segmented Neutrophils 59 % (42-75)
[2024-03-25 13:14] LABS: Atypical Lymphocytes 6 %; Metamyelocytes 1 % (-); Normal RBC Morphology Yes; Platelets Checked Yes; Total Cells Counted 100
[2024-03-25 13:36] LABS: Urine Albumin 2+ (Neg - Trace); Urine Bilirubin 1+ (Negative); Urine Character Slightly Cloudy (Clear); Urine Color Yellow; Urine Glucose Negative (Negative); Urine Ketone 1+ (Negative); Urine Leukocyte 1+ (Negative); Urine Nitrite Negative (Negative); Urine Occult Blood 4+ (Negative); Urine Urobilinogen 3+ (Neg - 1+)
[2024-03-25 13:43] LABS: Urine Amorphous Seen
[2024-03-25 13:44] LABS: Urine Mucus Few
[2024-03-25 13:46] LABS: Urine Bacteria Many (Negative); Urine White Cell 16-20 /HPF (0-5)
--- NOTE | 2024-03-25 14:28 | HPS.HSE ---
Family Physician
-
Family Physician: Anay Stewart
Chief Complaint
-
multiple syncope at home
History of Present Illness
HPI
88 M PMH significant for HX Vasovagal syncope dementia, MDS , Prx AF, Prx AT, Postural hypotension seen at ER:
- multiple syncope episodes today after BMs
- Hypotensive at home. Hypotensive at ER
- HX chronic midodrine for hypotension
Medical History
Past Medical History
Past Medical History: Reports Other
Additional Past Medical History:
MDS
Paroxysmal A-Fib / Paroxysmal Atrial Tachycardia
Senile Dementia with behavioral disturbance
Orthostatic Hypotension
Urinary cystitis passing clots September 2023
COVID-19 infection 12/07/2023
Past Surgical History: Reports Other
Additional Past Surgical History:
Bilateral JOSELINE
Lumbar Surgery
Right Shoulder Surgery
Social History
Tobacco: Non-smoker
Alcohol: Occasional
Drug: None
Personal:
Living: With Family
Family History
Family History: Not pertinent
Allergies / Home Medications
Allergies reflects when Allergies were last updated in [facility].
Home Medications with original date entered in [facility]
Allergy/Medication List:
Allergies
Allergy/AdvReac Type Severity Reaction Status Date / Time
latex Allergy Intermediate Rash Verified 09/29/23 21:01
Home Medications
sertraline 100 mg tablet 150 mg PO DAILY Mental Health 09/02/23
therapeutic multivitamin 1 tab PO DAILYPRN PRN supplement 09/02/23
lorazepam 0.5 mg tablet 0.5 mg PO BIDPRN PRN anxiety 09/20/23
acetaminophen 500 mg tablet 1,000 mg PO Q6HPRN PRN mild pain/fever 09/29/23
metoprolol succinate 25 mg tablet,extended release 24 hr 12.5 mg PO BID@1100,1500 Atrial fibrillation 09/29/23
midodrine 10 mg tablet 10 mg PO BID@0900,1300 Blood Pressure 09/29/23
atomoxetine 25 mg capsule 25 mg PO DAILY 12/19/23
prednisone 10 mg tablet 10 mg PO DAILY 12/19/23
Review of Systems
-
Constitutional: Reports No Symptoms
EENT: Reports No Symptoms
Respiratory: Reports No Symptoms
Cardiac: Reports Syncope
Abdomen/GI: Reports No Symptoms
: Reports No Symptoms
Musculoskeletal: Reports No Symptoms
Skin: Reports No Symptoms
Neurological: Reports See HPI
Endocrine: Reports No Symptoms
Hematologic/Lymphatic: Reports No Symptoms
Psych: Reports No Symptoms
Physical Exam
Vital Signs
Vital Signs
Temp Pulse Resp BP Pulse Ox
97.7 F 108 13 118/54 95
03/25/24 11:44 03/25/24 13:20 03/25/24 13:20 03/25/24 13:20 03/25/24 13:15
Physical Exam
General: Comfortable and Other (Patient with baseline dementia is currently oriented to name, Mabel only); No Fever or Chills
HEENT: NormoCephalic, Anicteric, PERRLA, [place] Conjunctivae and No Ptosis
Respiratory: Clear; No Wheezes, Rales or Rhonchi
Cardiac: S1/S2, Regular Rhythm and Tachycardia; No Murmur, Rub, Gallop or Peripheral Edema
Breast: Deferred by me
GI: Soft, Non Tender, Non Distended, Normal Bowel Sounds and No Hepatosplenomegaly
Rectal: Deferred by Provider
Genito-urinary: Deferred by me
Musculoskeletal: No Clubbing, No Cyanosis and No Edema
Skin: Warm and Dry; No Rash
Laboratory Results
-
03/25/24 11:46
03/25/24 11:46
Laboratory Results
Total Bilirubin 2.0 mg/dl (0.2-1.3) H 03/25/24 11:46
AST 34 U/L (17-59) 03/25/24 11:46
ALT 24 U/L (0-50) 03/25/24 11:46
Alkaline Phosphatase 99 U/L (38-126) 03/25/24 11:46
Troponin I 0.065 ng/ml H* 03/25/24 11:46
Data Reviewed
-
Medical Tests (Nuc Med, Echo, EKG etc): Report Reviewed by me
Lab Data: Labs Reviewed by me
Old Records: Reviewed
Impression/Plan
-
Data
Cr 1.1
eGFR > 60
TB 2.0
TPNI 0.065
UA suggestive of UTI
03/25/24 EKG
SINUS TACHYCARDIA WITH PREMATURE ATRIAL COMPLEXES
CANNOT RULE OUT ANTERIOR INFARCT , AGE UNDETERMINED
ABNORMAL ECG
09/05/23 TTE
Normal biventricular size and systolic function without regional wall motion abnormality.
Mild concentric left ventricular hypertrophy.
No significant valvular disease.
Mitral annular calcification.
NSR by rhythm strip.
No prior study available for comparison
Last hospitalist admission: Date of Admission: 12/19/23 - Date of Discharge: 12/21/23
Principal Discharge diagnosis : Vasovagal syncope
Chronic Discharge diagnosis : Bile dysplastic syndrome, leukopenia, thrombocytopenia, weakness, confusion, benign prostatic hyperplasia, paroxysmal atrial fibrillation
ASSESSMENT & PLAN
UA suggestive of UTI
HX BPH
- Afebrile, WCC 5.5 ( relative leucocytosis in setting of chr leucopenia)
- No prior POS UCX in Micro data
- UCX sent
- Agree with IV CFTZ
Multiple Syncope preceded by BMs: vasovagal origin in setting of underlying chronic hypotension
- Hypotensive at home before having a syncopal episode
- Hypotensive on arrival at ER
- EKG shows ST and PAC
- Previous ECHO - no valvular heart disease
- will not check Orthostatics given low BP upon arrival and prior established HX postural hypotension
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
- Cont Metoprolol succinate with hold for SBP < 100
- fall precaution
- TLM security monitor
In NSR
Paroxysmal AT / Atrial Fibrillation
- Stable.
- cont. metoprolol.
- Not on OAC given fall / bleed risk.
- P Card; Dr Marce San
Elevated first TPNI , denied CP, NOS EKG for acute ischemia
DDX: NIMI
- Trend TPNI
HX Chr pancytopenia
HX MDS
- Stable. Abnormal cell counts all appear unchanged from known baseline.
- No evidence of any active bleeding, etc.
- Follow cell counts.
BPH HX
HX Anxiety /depression
- cont. PRN Lorazepam
- cont. Sertraline
DVT Px: SCD
Code: Full
Ip TLM
[2024-03-25] MEDS: ROCEPHIN 1000 MG IV (14:49)
--- NOTE | 2024-03-25 19:10 | PTCARENOTE ---
Received patient from ED via stretcher. Patient pulled over from stretcher to bed. AAO to self only, denies pain. Oriented patient to room and placed call bassett within reach.
[2024-03-25] MEDS: NSS 500 IV (20:08)
[2024-03-25 21:22] LABS: Troponin I 0.153 ng/ml
[2024-03-26] VITALS (10 sets, daily range): BP systolic 96–161; BP diastolic 60–80; BMI 25.5
[2024-03-26] MEDS: TYLENOL 1000 MG PO (00:14)
[2024-03-26] MEDS: ATIVAN 0.5 MG PO (00:14)
[2024-03-26] MEDS: NSS IV (01:57)
[2024-03-26 06:01] LABS: Blood Urea Nitrogen 26 mg/dl (9-20); Calcium 8.4 mg/dl (8.4-10.2); Carbon Dioxide 24 mmol/L (22-30); Chloride 102 mmol/L (98-107); Estimated Creatinine Clearance 57 ml/min; Glucose 115 mg/dl (70-99); Potassium 3.8 mmol/L (3.5-5.1); Sodium 134 mmol/L (135-145); eGFR > 60.00
[2024-03-26 06:08] LABS: Troponin I 0.144 ng/ml
[2024-03-26] MEDS: DESENEX/MITRAZOL/ZEASORB 1 APPLIC TOPICAL ×2 (09:15→21:58)
--- NOTE | 2024-03-26 10:17 | CON.ONC ---
Impression
Impression
hemoptysis, dark blood
recurrent syncope at home, h/o hypotension on midodrine
UTI, + blood cultures
MDS, with chronic thrombocytopenia
Afib on metoprolol, not on a/c
Dementia
Depression/anxiety, on SSRI
Plan
Plan
history and exam suggest old blood, not acute bleeding
would transfuse platelets prn bleeding, goal platelet count > 50 - I will order
SSRI likely contributing to platelet dysfunction
antibiotics per primary team
BP/HR mgmt per cardiology
Hematology will sign off. Please call w/ questions.
Patient History
History of Present Illness
88 yo M w/ h/o MDS (patient of Dr. Hernández) with chronic thrombocytopenia (30-50s), admitted after syncopal episodes at home, after BM. Has chronic hypotension, on midodrine. As outpatient, also takes sertraline 150mg and Prednisone 10mg/d.
(Prednisone per hematology for platelet count).
In ER, noted to have UA suggestive of UTI. 03/25 blood cultures positive for gpc in clusters, (probable) coag neg staph. Current abx include Vanco and Zosyn.
Hematology consulted for 'hemoptysis, cannot exclude hematemesis.'
at bedside, describes episode of coughing up dark blood. No bleeding elsewhere.
On PPI drip.
Per , he's mostly bedbound with dementia, has declined over the past 6 months. Has caregivers in the home.
Past-Medical/Surgical History
Past Medical History
Past Medical History: Reports Other
Additional Past Medical History:
MDS
Paroxysmal A-Fib / Paroxysmal Atrial Tachycardia - not on anticoagulation
Senile Dementia with behavioral disturbance
Orthostatic Hypotension
Urinary cystitis passing clots September 2023
COVID-19 infection 12/07/2023
Past Surgical History: Reports Other
Additional Past Surgical History:
Bilateral JOSELINE
Lumbar Surgery
Right Shoulder Surgery
Social History
Tobacco: Non-smoker
Alcohol: Occasional
Drug: None
Personal:
Living: With Family
Family History
Family History: Not pertinent
Patient Medication
�Medication �Instructions �Recorded �Confirmed �Last Taken �Type
sertraline 100 mg tablet 150 mg PO DAILY Mental Health 09/02/23 03/25/24 03/24/24 History
lorazepam 0.5 mg tablet 0.5 mg PO TIDPRN PRN anxiety 09/20/23 03/25/24 Unknown History
acetaminophen 500 mg tablet 1,000 mg PO Q6HPRN PRN mild 09/29/23 03/25/24 03/24/24 History
pain/fever
metoprolol succinate 25 mg 12.5 mg PO DAILY@1100 Atrial 09/29/23 03/25/24 03/24/24 History
tablet,extended release 24 hr fibrillation
midodrine 10 mg tablet 10 mg PO BID@0900,1300 Blood 09/29/23 03/25/24 03/24/24 History
Pressure
prednisone 10 mg tablet 10 mg PO DAILY Anti-Inflammatory 12/19/23 03/25/24 03/24/24 History
Active Medications
Generic Name Dose Route Start Last Admin
Trade Name Freq PRN Reason Stop Dose Admin
Acetaminophen 1,000 mg 03/25/24 18:34 03/26/24 00:14
Acetaminophen 500 Mg Tablet PO 04/22/24 18:33 1,000 mg
Q6HPRN PRN Administration
mild pain/fever
Bisacodyl 10 mg 03/25/24 18:34
Bisacodyl 10 Mg Rectal Suppository RECTAL 04/22/24 18:33
[id number] PRN
constipation
Vancomycin HCl 1 each/ Device 0 mls @ 0 mls/hr 03/26/24 10:00
IV
PER PROTOCOL SHAN
As Directed
Piperacillin Sod/Tazobactam Sod 3.375 gram in 50 mls @ 100 mls/hr 03/26/24 10:00
Zosyn IV
Q6H SHAN
Pantoprazole Sodium 80 mg in 100 mls @ 10 mls/hr 03/26/24 10:00
Protonix IV
Q10H SHAN
8 MG/HR
Vancomycin HCl 1,500 mg/ 530 mls @ 353.333 mls/hr 03/26/24 10:01
Sodium Chloride IV 03/26/24 11:30
NOW STA
Protocol
Lorazepam 0.5 mg 03/25/24 18:34 03/26/24 00:14
Lorazepam 0.5 Mg Tablet PO 04/22/24 18:33 0.5 mg
TIDPRN PRN Administration
anxiety
Metoprolol Succinate 12.5 mg 03/26/24 11:00
Metoprolol 12.5 Mg Extended Release Dose (1/2 Of 25 Mg Xl Tablet) PO 04/23/24 10:59
DAILY@1100 SHAN
Miconazole Nitrate 0 applic 03/26/24 08:00 03/26/24 09:15
Miconazole Powder Bottle TOPICAL 04/23/24 07:59 1 applic
BID SHAN Administration
Midodrine 10 mg 03/26/24 09:00
Midodrine 5 Mg Tablet PO 04/23/24 08:59
BID@0900,1300 SHAN
Polyethylene Glycol 17 grams 03/25/24 18:34
Polyethylene Glycol Powder 17 Grams Packet PO 04/22/24 18:33
DAILYPRN PRN
constipation
Prednisone 10 mg 03/26/24 08:00
Prednisone 10 Mg Tablet PO 04/23/24 07:59
DAILY SHAN
Senna/Docusate Sodium 1 tablet 03/25/24 18:34
Docusate W/Senna (Yolanda-Colace) Tablet PO 04/22/24 18:33
BIDPRN PRN
constipation
Sertraline HCl 150 mg 03/26/24 08:00
Sertraline 100 Mg Tablet PO 04/23/24 07:59
DAILY SHAN
Sodium Chloride 0 flush 03/25/24 19:00
Sodium Chloride 0.9% (Flush) Syringe IV 04/22/24 18:59
PER PROTOCOL SHAN
Review of Systems
-
Unable to obtain full review of systems at this time due to: Patient Non Verbal
History Source: Family
All Other Systems: Not reviewed unless documented
Physical Exam
-
General: Negative Comfortable, Conversant or Appears Chronically Ill
HEENT: Moist Mucous Membranes (Dry lips. Dark brown blood in mouth/throat.); Negative Jaundice
Skin: Warm and Dry
Psych: Agitated
Labs
Lab Results
WBC 5.5 10^3/uL (4.8-10.8) 03/25/24 11:46
RBC 4.72 10^6/uL (4.70-6.10) 03/25/24 11:46
Hgb 12.8 g/dL (13.0-18.0) L 03/25/24 11:46
Hct 42.2 % (39.0-52.0) 03/25/24 11:46
MCV 89.4 fL (80.0-94.0) 03/25/24 11:46
MCH 27.1 pg (27.0-31.0) 03/25/24 11:46
MCHC 30.3 g/dL (33.0-37.0) L 03/25/24 11:46
RDW 19.2 % (11.5-14.5) H 03/25/24 11:46
Plt Count 46 10^3/uL (130-400) L 03/25/24 11:46
MPV Not Reportable 03/25/24 11:46
Creatinine 0.9 mg/dL (0.7-1.3) 03/26/24 05:13
Vital Signs
Vital Signs
Temp Pulse Resp BP Pulse Ox
98.4 F 97 18 129/62 96
03/26/24 07:30 03/26/24 07:30 03/26/24 07:30 03/26/24 07:30 03/26/24 07:30
--- NOTE | 2024-03-26 10:30 | CON.CAR ---
Addendum entered and electronically signed by Pop Carney MD 03/26/24 12:17:
Patient seen and examined in correlation with DIRECTOR TITLE; agree with below.
-88-year-old male with advanced dementia, paroxysmal atrial fibrillation (not on systemic anticoagulation due to bleeding and fall risk), orthostatic hypotension, and MDS admitted with near-syncope.
-The patient was found to have a UTI and is now on antibiotics.
-Recommend conservative management from a cardiac standpoint; supportive care.
-Continue midodrine.
-No further cardiac recommendations as patient's symptoms are most likely secondary to his active infection, which is being treated appropriately.
Original Note:
Consultation
Consultation Request
Date/Time Consultation Requested: 03/26/24 0956
Date/Time Consultation Performed: 03/26/24 1015
Requesting Provider: Dr. Ge
Performing Provider: Maris SHEPPARD for Dr. Carney
Reason for Consultation: abnormal troponin, syncope, orthostatic hypotension
Medical History
-
Chief Complaint: syncope
History of Present Illness:
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 He is
seen to have a UTI and is being treated with antibiotics. We are consulted since troponin is abnormal - he has no CP, and also due to his syncope with known orthostatic hypotension.
Past Medical History
Past Medical History: Arrhythmias, Cancer (MDS) and Other (dementia, orthostatic hypotension)
Social History
Personal:
Living: With Family
Family History
Family History: Reviewed & Not Pertinent
Allergies / Home Medications
Allergy/AdvReac Type Severity Reaction Status Date / Time
latex Allergy Intermediate Rash Verified 09/29/23 21:01
�Medication �Instructions �Recorded �Confirmed �Type
sertraline 100 mg tablet 150 mg PO DAILY Mental Health 09/02/23 03/25/24 History
lorazepam 0.5 mg tablet 0.5 mg PO TIDPRN PRN anxiety 09/20/23 03/25/24 History
acetaminophen 500 mg tablet 1,000 mg PO Q6HPRN PRN mild 09/29/23 03/25/24 History
pain/fever
metoprolol succinate 25 mg 12.5 mg PO DAILY@1100 Atrial 09/29/23 03/25/24 History
tablet,extended release 24 hr fibrillation
midodrine 10 mg tablet 10 mg PO BID@0900,1300 Blood 09/29/23 03/25/24 History
Pressure
prednisone 10 mg tablet 10 mg PO DAILY Anti-Inflammatory 12/19/23 03/25/24 History
Review of Systems
-
History Source: Patient
All other systems: Negative unless noted
Cardiac: Syncope
Physical Exam
Vital Signs
Temp Pulse Resp BP Pulse Ox
98.4 F 97 18 129/62 96
03/26/24 07:30 03/26/24 07:30 03/26/24 07:30 03/26/24 07:30 03/26/24 07:30
Lab Results
Troponin I Cancelled 03/26/24 12:40
Physical Exam
General: Well Developed, Well Nourished and No Apparent Distress
HEENT: Normocephalic and Anicteric
Respiratory: Clear and Non Labored Respirations
Cardiac: Irregular Rhythm (ST with PAC's)
Musculoskeletal: No Edema
Skin: Warm and Dry
Neuro: Awake and Alert
Psych: Calm
Impression / Plan
-
UTI:
-on abx
-also evidence for bacteremia as a prelim blood culture + for gram+cocci in clusters
-management per primary team
-s/p IVF (1.5 L)
Syncope, known orthostatic hypotension:
-continue midodrine and monitor
-in setting of infection- s/p 1.5 L IVF- give fluids as indicated per primary team
Abnormal troponin:
-acute, non-ischemic myocardial injury in setting of acute illness with infection (UTI, a prelim blood culture + for gram+cocci in clusters.), mild hypotension, mild tachycardia.
-no CP
-peak 0.153
PAF:
-stable- rhythm is ST with PAC's- follow telemetry- continue BB as tolerated
-not on OAC - risk > benefit - falls, MDS, thrombocytopenia
MDS:
-heme/onc consulted
Dementia
Data Reviewed
-
EKG: Tracing Personally Visualized and interpreted (ST with PAC's)
Radiology: Image Personally Visualized and interpreted (no acute disease of chest seen by me, but official report is pending)
Medical Tests (Nuc Med, Echo etc): Report Reviewed by me (Echo 09/05/23: Normal biventricular size and systolic function without regional wall motion abnormality. Mild concentric left ventricular hypertrophy. No significant valvular disease. Mitral
annular calcification.)
Labs: Labs Reviewed by me
[2024-03-26] MEDS: ProAmatine PO ×2 (10:31→12:33)
[2024-03-26] MEDS: ZOLOFT PO (10:31)
[2024-03-26] MEDS: DELTASONE PO (10:31)
[2024-03-26] MEDS: NSS (PRESERVATIVE FREE) 20 ML IV (10:37)
[2024-03-26] MEDS: PROTONIX IV 80 MG IV (10:38)
[2024-03-26] MEDS: FLUSH (NSS) 1 FLUSH IV ×3 (10:40→16:53)
[2024-03-26] MEDS: ZOSYN 50 IV ×3 (10:40→21:58)
[2024-03-26 10:43] LABS: Hematocrit 34.4 % (39.0-52.0); Hemoglobin 10.8 g/dL (13.0-18.0); Mean Corp Hgb Conc. 31.4 g/dL (33.0-37.0); Mean Corpuscular Hgb 27.6 pg (27.0-31.0); Red Blood Cell Count 3.91 10^6/uL (4.70-6.10); Red Cell Dist. Width 19.4 % (11.5-14.5); White Blood Cell Count 4.6 10^3/uL (4.8-10.8)
[2024-03-26 10:46] LABS: Direct Bilirubin 0.5 mg/dl (0.0-0.4); LDH 177 U/L (120-246)
[2024-03-26 10:51] LABS: INR 1.19; PT 15.4 Sec (11.4-14.6)
[2024-03-26 10:52] LABS: APTT 40.7 Sec (23.4-35.0); Fibrinogen 534 MG/DL (199-459)
[2024-03-26 10:53] LABS: ALT (SGPT) 20 U/L (0-50); AST (SGOT) 23 U/L (17-59); Albumin 3.5 g/dl (3.5-5.0); Alkaline Phosphatase 92 U/L (38-126); Blood Urea Nitrogen 25 mg/dl (9-20); Carbon Dioxide 27 mmol/L (22-30); Chloride 102 mmol/L (98-107); Estimated Creatinine Clearance 57 ml/min; Glucose 112 mg/dl (70-99); Potassium 4.3 mmol/L (3.5-5.1); Sodium 135 mmol/L (135-145); Total Bilirubin 1.6 mg/dl (0.2-1.3); Total Protein 6.1 g/dl (6.3-8.2); eGFR > 60.00
[2024-03-26 10:55] LABS: D-Dimer 0.92 ug/mlFEU (0.00-0.50)
[2024-03-26 11:01] LABS: Absolute Neutrophils -Man Diff 2.8 10^3/uL (1.4-6.5); Atypical Lymphocytes 2 %; Band Neutrophils 3 % (0-3); Lymphocytes 24 % (20-51); Monocytes 13 % (2-9); Platelet Count 33 10^3/uL (130-400); Segmented Neutrophils 58 % (42-75)
[2024-03-26 11:02] LABS: Anisocytosis 1+; Hypochromasia Slight; Normal RBC Morphology No; Ovalocytes 1+; Platelets Checked Yes; Polychromasia 1+; Total Cells Counted 100
--- NOTE | 2024-03-26 11:15 | PHA.VAN.IN ---
Assessment
- Assessment
Renal Function: Appears similar to baseline
Concomitant Antimicrobials: piperacillin/tazo
AUC Dosing Plan
- Empiric Dosing
Initial / Loading Dose: 1500 mg x 1 dose - administration pending
Maintenance Regimen: 1250 mg q24h - to start 03/27 0600
Estimated AUC (mcg*h/mL): 472
Estimated Peak (mcg*h/mL): 33.1
Estimated Trough (mcg/ml): 10.3
Estimated Half Life (H): 13.4
- Monitoring
No levels ordered at this time: consider levels when pt reaches steady state
Pharmacokinetics Vancomycin I
- -
Patient Age: 88
Patient Sex: Male
Vancomycin Day #: 1
Indication: Bacteremia
Requesting Provider: Luma
Pertinent Antimicrobial Allergies:
latex - rash
Height / Weight:
Height 5 ft 8 in
Actual Weight 76.113 kg
- Vital Signs / Lab Results
Temp Pulse Resp BP Pulse Ox
98.4 F 97 18 129/62 96
03/26/24 07:30 03/26/24 07:30 03/26/24 07:30 03/26/24 07:30 03/26/24 07:30
Lab Results - Hematology
03/25/24 03/26/24
11:46 10:21
WBC 5.5 4.6 L
Band Neutrophils 4 H 3
Lab Results - Chemistry
03/25/24 03/26/24 03/26/24
11:46 05:13 10:21
BUN 22 H 26 H 25 H
Creatinine 1.1 0.9 0.9
Estimated Creat Clear 57 57
Albumin 4.0 3.5
Lab Results - Urine
03/25/24
13:26
Urine Nitrite (Reflex) Negative
Leukocyte Esterase Rfl 1+ A
Urine WBC (Reflex) 16-20 A
Ur Squamous Epith Cells 3-5
Urine Bacteria (Reflex) Many A
Microbiology Results
03/25/24 14:45 Blood Culture - Preliminary
Blood/Venous Positive culture in progress
Gram Stain - Preliminary
[2024-03-26] MEDS: VANCOCIN 530 MG IV (11:32)
[2024-03-26] MEDS: PROTONIX 100 IV ×2 (11:32→21:58)
[2024-03-26] MEDS: TOPROL XL PO (12:24)
--- NOTE | 2024-03-26 12:35 | PTCARENOTE ---
Telemetry currently showing afib to 130's; pt asymptomatic; BP 137/71. Dr. Ge notified; no EKG to be done. Will continue to monitor.
--- NOTE | 2024-03-26 12:45 | W.PN.HOSP.TC ---
Addendum entered and electronically signed by Bandar Ge MD 03/26/24 15:33:
2 sets of Cx GPC - repeated Bcx, Echo, called ID
Original Note:
Today's Communication/Plan
-
see PN
Assessment / Plan
Assessment / Plan
88yo M with PMHX of Afib, orthostatic hypotension, MDS, advanced dementia brought by his after repeated episodes of syncope when he was trying to have bowel movemnt. Has Hx of the same. As per family - DNR/DNI and avoid invasive medications.
In ED also found with possible UTI and later developed hemoptysis vs hematemesis vs posteroid
A/P:
#Syncope
#Chronic orthostatic hypotension
COnt midodrine
hydrate
#Paroxysmal Afib
#Non-ischemic myocardial injury
no chest pain
not on AC 2/2 bleeding risk and Hx of falls
Cardio followed
Echo
#MDS with pancytopenia
Hematology consult
follow CBC
#UTI
#Bacteremia
1 set coag neg staph - probable contamination
Vanco Zosyn pending repeated Bcx
Ucx E.coli pending sensitivity
#Hemoptysis vs hematemesis
as per discussion wioth bedside - no invasive mgmt, so no additional benefit from Pulm or GI
Start PPUI
bleeding self-limited
Serial H&H
Blood transfusion consent signed
#Elevated ddimer
with hemoptysis - CTA chest
US LE
#Advanced dementia
unspecified
as per - on baseline, poor communication skills and dependent for ADL
DVT ppx SCDs
DNR/DNI
I have spent at least 58min reviewing chart, test results, communication with consultants and direct patient care
Anticipated Discharge: > 48 hours
Subjective/Interval History
-
Date of Service: March 26, 2024
Objective Data
-
Labs:
Laboratory Results
03/26/24 03/26/24 03/26/24
05:13 10:21 10:21
WBC 4.6 L
Hgb Cancelled 10.8 L
Hct Cancelled
Plt Count
PT
INR
APTT
Sodium 134 L
Potassium 3.8
Chloride 102
Carbon Dioxide 24
BUN 26 H
Creatinine 0.9
Glucose 115 H
Calcium 8.4
Total Bilirubin
AST
ALT
Alkaline Phosphatase
03/26/24 03/26/24
10:21 19:00
WBC
Hgb Pending
Hct 34.4 L Pending
Plt Count 33 L D
PT 15.4 H
INR 1.19
APTT 40.7 H
Sodium 135
Potassium 4.3
Chloride 102
Carbon Dioxide 27
BUN 25 H
Creatinine 0.9
Glucose 112 H
Calcium 9.0
Total Bilirubin 1.6 H
AST 23
ALT 20
Alkaline Phosphatase 92
Vital Signs:
Vital Signs
Temp Pulse Resp BP Pulse Ox
99.3 F 102 18 137/71 96
03/26/24 11:36 03/26/24 11:36 03/26/24 11:36 03/26/24 11:36 03/26/24 11:36
I&O
03/25/24 03/26/24 03/27/24
06:59 06:59 06:59
Intake Total 0 / 0
Balance 0 / 0
Review of Systems
-
Unable to obtain full review of systems at this time due to: Dementia
Physical Exam
-
General: No Apparent Distress
HEENT: Normocephalic
Respiratory: Clear to Auscultation
Cardiac: Irregular Rhythm
GI: Soft, Nontender and Nondistended
Musculoskeletal: No Clubbing, No Cyanosis and No Edema
Neuro: Awake and Alert
Psych: Calm and Apparent Dementia
[2024-03-26] MEDS: D5/0.9% SODIUM CHLORIDE 1000 IV (13:31)
--- NOTE | 2024-03-26 15:45 | PTCARENOTE ---
Platelets unit # [id number] infusing via Rt AC site with out sx of infiltration/adberse reaction. VSS. Will continue to monitor.
--- NOTE | 2024-03-26 16:20 | PTCARENOTE ---
Pt awake and alert, oriented to self/birthdate; confused conversation. [place] slowly; does not assist with turning; resists positioning at times. VSS. Telemetry:currently Afib to 120's; pt without c/o palpitations. on room air- pulse ox 97%, no SOB
noted. Abd large, soft, NPO maintained; awaiting speech eval. Condom cath P/I mod amts clear lt blanka urine. Knee- high SCD's in place. Lt forearm IV site with D5 NSS@ 75 ml/hr and Lt upper arm IV site with Protonix drip @ 8 mg/hr (10 ml/hr)
infusing without sx of infiltration. Platelets currently infusing via Rt AC site without sx of infiltration. Multiple family members at bedside. Will continue to monitor.
--- NOTE | 2024-03-26 16:52 | CON.ID ---
Addendum entered and electronically signed by Pop Giraldo, 03/26/24 17:10:
Spoke with at length. She would like to talk to the juvenile court liaison to find out more information.
Will consult hospice.
Original Note:
Consultation
-
Date/Time Consultation Requested: 03/26/2024 1531
Date/Time Consultation Performed: 03/26/2024 1631
Requesting Provider: Dr. Ge
Performing Provider: Dr. Giraldo
Reason for Consultation: Bacteremia
Chief Complaint / Past History
History of Present Illness
Desmond Allen is an 88-year-old man with a significant past medical history of orthostatic hypotension and arrhythmia being evaluated at the request of Dr. Ge regarding bacteremia. History is obtained from chart review, along with patient
interview. The patient is known to the Infectious Diseases service, having been seen in mid December for encephalopathy. At that time he was brought in for increasing weakness and increase confusion, and ultimately found to have COVID-19.
He presents back to the emergency room yesterday following multiple syncopal episodes at home. At presentation to the hospital he was not found to be febrile, blood cultures obtained in the emergency room are now positive for gram-positive cocci in
2 of 4 bottles. Infectious Diseases is asked to comment upon further antimicrobial management and workup.
Patient does have a caregiver at home, and she reports that the patient was evaluated last week at the Urology office, and not found to have any UTI, did complain of some dysuria within the past several days. No reported fevers at home.
Past History
Additional Past Medical History:
Arrhythmia
Dementia
Myelodysplasia
Orthostatic hypotension
Additional Past Surgical History:
Cholecystectomy
Lumbosacral decompression x 4
Right hip arthroplasty
Allergy History:
latex Allergy (Intermediate, Verified 09/29/23 21:01)
Rash
Medications Reviewed: Yes
Current Antibiotics:
Zosyn 3.375 g IV every 6 hours
Vancomycin (dosed per pharmacy)
Social History
Tobacco: Non-Smoker
Alcohol: None
Drug: None
Personal:
Living: With Family
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
Family History
Family History: Not Pertinent
Review of Systems
Vital Signs
Temp Pulse Resp BP Pulse Ox
98.6 F 119 20 121/66 97
03/26/24 16:51 03/26/24 16:51 03/26/24 16:51 03/26/24 16:51 03/26/24 16:19
Physical Exam
Physical Exam
Constitutional: No Acute Distress, Comfortable, Chronically Ill and Non-toxic
Head: Normocephalic
Eyes: Pupils Equal, Pupils Round, No Conjunctival Hemorrhage and Sclera Anicteric
Oral: No Thrush and No Ulcers
Cardiovascular: Regular Rate and S1/S2; Negative S3/S4
Pulmonary: Clear; Negative Wheezes, Rales or Rhonchi
Gastrointestinal: Soft, Non Tender, Non Distended, Normal Bowel Sounds, No Rebound and No Guarding
Genito-Urinary: Negative [place], Suprapubic Tenderness or CVA Tenderness
Extremities: Negative Edema, Cyanosis, Erythema, Splinter Hemorrhage or Venous Insufficiency
Skin: Warm and Dry; Negative Rash or Jaundice
Neurological: Awake and Alert
Psychological: Confused (mild)
.
Lab / Diagnostic Study Results
03/26/24 10:21
Total Counted 100 03/26/24 10:21
Abs Neuts (Manual) 2.8 10^3/uL (1.4-6.5) 03/26/24 10:21
Segmented Neutrophils 58 % (42-75) 03/26/24 10:21
Band Neutrophils 3 % (0-3) 03/26/24 10:21
Lymphocytes (Manual) 24 % (20-51) 03/26/24 10:21
PT 15.4 Sec (11.4-14.6) H 03/26/24 10:21
INR 1.19 03/26/24 10:21
Ur Squamous Epith Cells 3-5 /LPF (Few) 03/25/24 13:26
Microbiology Results
Micro:
03/26/24 13:29 Blood Culture - Pending
Blood/Venous
03/25/24 14:45 Blood Culture - Preliminary
Blood/Venous Positive culture in progress
Gram Stain - Preliminary
03/26/24 13:21 Blood Culture - Pending
Blood/Venous
03/25/24 13:26 Urine Culture - Preliminary
Urine Escherichia coli
03/25/24 14:45 Blood Culture - Preliminary
Blood/Venous Positive culture in progress
Gram Stain - Preliminary
Imaging:
03/26/2024 CT chest (PE study): No evidence of central pulmonary oozing. Thoracic aorta is within normal limits. Some bibasilar subsegmental atelectasis but no focal parenchymal consolidation noted.
Assessment / Plan
Positive blood cultures
- suspect contaminant
Bacteriuria with question of dysuria
- cultures revealing E. coli
Syncopal episodes
Dementia
Myelodysplasia
Orthostatic hypotension
Recommendations:
Continue with empiric vancomycin and Zosyn.
Repeat blood cultures have been obtained; will await further results
Await further identification of currently positive blood cultures to determine whether ongoing antibiotics are necessary.
Await urine cultures.
Follow white count and temperature curve.
Further recommendations as additional data is returned.
[2024-03-26 18:49] LABS: Hematocrit 29.8 % (39.0-52.0); Hemoglobin 9.7 g/dL (13.0-18.0)
[2024-03-27] VITALS (7 sets, daily range): BP systolic 113–136; BP diastolic 58–74
[2024-03-27 01:32] LABS: Hematocrit 30.7 % (39.0-52.0); Hemoglobin 9.7 g/dL (13.0-18.0)
[2024-03-27] MEDS: ZOSYN 50 IV ×4 (04:02→21:46)
[2024-03-27] MEDS: VANCOCIN 275 MG IV (05:44)
[2024-03-27] MEDS: D5/0.9% SODIUM CHLORIDE 1000 IV ×2 (06:38→16:48)
--- NOTE | 2024-03-27 08:17 | W.PN.ID1 ---
Date of Service
Date of Service: March 27, 2024
Today's Communication
Continue antibiotics for today.
Assessment / Plan
Positive blood cultures (GPC in single bottle of each set from admit)
- suspect contaminant
Bacteriuria with question of dysuria
- cultures revealing E. coli
Syncopal episodes
Weakness
Progressive Dementia
Myelodysplasia
Orthostatic hypotension
Recommendations:
Continue with empiric vancomycin and Zosyn while cultures are pending.
Repeat blood cultures have been obtained; will await further results
Await further identification of currently positive blood cultures to determine whether ongoing antibiotics are necessary.
Await final urine culture data.
Follow white count and temperature curve.
Further recommendations as additional data is returned.
As noted yesterday, patient has asked for evaluation by hospice. Will await further input from family regarding direction of care.
����������������������������������������������������������
Chief Complaint
-: UTI and Bacteremia
Subjective / Review of Systems
Review of Systems: No Fever
Vital Signs / Physical Exam
Vital Signs
Vital Signs
Temp Pulse Resp BP Pulse Ox
99 F 104 20 135/62 99
03/27/24 08:07 03/27/24 08:07 03/27/24 08:07 03/27/24 08:07 03/27/24 08:07
Physical Exam
Constitutional: Comfortable, Acutely Ill, Chronically Ill and Non-toxic
Eyes: Sclera Anicteric
Cardiovascular: S1/S2; Negative S3/S4
Pulmonary: Non Labored
Gastrointestinal: Soft, Non Tender, Non Distended and Normal Bowel Sounds
Psychological: Calm
Objective Data
Lab Data
PT 15.4 Sec (11.4-14.6) H 03/26/24 10:21
INR 1.19 03/26/24 10:21
APTT 40.7 Sec (23.4-35.0) H 03/26/24 10:21
Estimated Creat Clear 57 ml/min 03/26/24 10:21
Total Bilirubin 1.6 mg/dl (0.2-1.3) H 03/26/24 10:21
AST 23 U/L (17-59) 03/26/24 10:21
ALT 20 U/L (0-50) 03/26/24 10:21
Alkaline Phosphatase 92 U/L (38-126) 03/26/24 10:21
Most recent labs reviewed.
Micro Results:
03/25/24 13:26 Urine Culture - Preliminary
Urine Escherichia coli
03/26/24 13:21 Blood Culture - Pending
Blood/Venous
03/26/24 13:29 Blood Culture - Pending
Blood/Venous
03/25/24 14:45 Blood Culture - Preliminary
Blood/Venous Positive culture in progress
Gram Stain - Preliminary
03/25/24 14:45 Blood Culture - Preliminary
Blood/Venous Positive culture in progress
Gram Stain - Preliminary
Imaging:
03/26/2024 CT chest (PE study): No evidence of central pulmonary oozing. Thoracic aorta is within normal limits. Some bibasilar subsegmental atelectasis but no focal parenchymal consolidation noted.
[2024-03-27 09:00] LABS: ALT (SGPT) 16 U/L (0-50); AST (SGOT) 23 U/L (17-59); Albumin 2.8 g/dl (3.5-5.0); Alkaline Phosphatase 89 U/L (38-126); Blood Urea Nitrogen 21 mg/dl (9-20); Calcium 8.3 mg/dl (8.4-10.2); Carbon Dioxide 23 mmol/L (22-30); Chloride 105 mmol/L (98-107); Estimated Creatinine Clearance 64 ml/min; Glucose 118 mg/dl (70-99); Potassium 3.7 mmol/L (3.5-5.1); Sodium 134 mmol/L (135-145); Total Bilirubin 1.1 mg/dl (0.2-1.3); Total Protein 5.3 g/dl (6.3-8.2); eGFR > 60.00
[2024-03-27] MEDS: ProAmatine 10 MG PO ×2 (09:42→13:30)
[2024-03-27] MEDS: DESENEX/MITRAZOL/ZEASORB 1 APPLIC TOPICAL ×2 (09:43→21:46)
[2024-03-27] MEDS: PROTONIX 100 IV (09:44)
--- NOTE | 2024-03-27 09:55 | PHA.VAN.FU ---
Vancomycin Assessment / Plan
- Assessment
Renal Function: Stable
In the past 24 hrs, patient has been: Afebrile
Concomitant Antimicrobials: piperacillin/tazo
- Dosing Plan
Continue: vancomycin 1250 mg q24h - first dose 03/27 06
- Monitoring Plan
No level(s) ordered at this time: consider levels after 4th or 5th dose
- Follow Up
Pharmacy will continue to follow.
Vancomycin Follow UP
- -
Patient Age: 88
Patient Sex: Male
Vancomycin Day #: 2
Indication: Bacteremia
Requesting Provider: Luma
Pertinent Antimicrobial Allergies:
latex - rash
Height / Weight:
Height 5 ft 8 in
Actual Weight 76.113 kg
- Vital Signs / Lab Results
Temp Pulse Resp BP Pulse Ox
99 F 104 20 135/62 99
03/27/24 08:07 03/27/24 08:07 03/27/24 08:07 03/27/24 08:07 03/27/24 08:07
Lab Results - Hematology
03/25/24 03/26/24 03/27/24
11:46 10:21 08:09
WBC 5.5 4.6 L Cancelled
Band Neutrophils 4 H 3
Lab Results - Chemistry
03/25/24 03/26/24 03/26/24
11:46 05:13 10:21
BUN 22 H 26 H 25 H
Creatinine 1.1 0.9 0.9
Estimated Creat Clear 57 57
Albumin 4.0 3.5
03/27/24
08:09
BUN 21 H
Creatinine 0.8
Estimated Creat Clear 64
Albumin 2.8 L
Lab Results - Urine
03/25/24
13:26
Urine Nitrite (Reflex) Negative
Leukocyte Esterase Rfl 1+ A
Ur Squamous Epith Cells 3-5
Microbiology Results
03/25/24 13:26 Urine Culture - Final
Urine Escherichia coli
03/25/24 14:45 Blood Culture - Preliminary
Blood/Venous Coagulase neg. staphylococcus
Gram Stain - Preliminary
03/25/24 14:45 Blood Culture - Preliminary
Blood/Venous Coagulase neg. staphylococcus
Gram Stain - Preliminary
[2024-03-27] MEDS: ZOLOFT PO (09:57)
[2024-03-27] MEDS: DELTASONE PO (09:57)
[2024-03-27] MEDS: TOPROL XL PO (11:06)
[2024-03-27 11:17] LABS: Hematocrit 31.7 % (39.0-52.0); Hemoglobin 9.7 g/dL (13.0-18.0); Mean Corp Hgb Conc. 30.6 g/dL (33.0-37.0); Mean Corpuscular Hgb 27.4 pg (27.0-31.0); Mean Corpuscular Volume 89.5 fL (80.0-94.0); Platelet Count 38 10^3/uL (130-400); Red Blood Cell Count 3.54 10^6/uL (4.70-6.10); Red Cell Dist. Width 19.3 % (11.5-14.5); White Blood Cell Count 2.4 10^3/uL (4.8-10.8)
--- NOTE | 2024-03-27 11:31 | PTOTSP ---
SPEECH THERAPY SWALLOW EVALUATION:
Patient exhibits clinical signs of oropharyngeal dysphagia, likely chronic related to dementia and acutely exacerbated by UTI. Patient remains at risk for aspiration and related complications given confusion. Choking episode reported in ED on whole
pill. Recommend IDDSI Level 4 Puree diet, thin liquids. Medications crushed in puree. Aspiration precautions: Upright positioning; Small single sips/bites; Slow rate; Only feed when awake/alert; 1:[address] to follow, assess diet
tolerance and modify as appropriate, and provide continued diagnostic swallow therapy as appropriate.
RECOMMEND:
1) IDDSI Level 4 Puree diet, thin liquids
2) Medications crushed in puree
3) Aspiration precautions: Upright positioning; Small single sips/bites; Slow rate; Only feed when awake/alert; 1:1 assistance during meals
4) ST to follow
--- NOTE | 2024-03-27 11:38 | CM ---
CM notified that pt has requested home hospice care with Hospice. Hospice referral sent to Hospice. Plan for discharge to home with Hospice services on 03/29/2024.
--- NOTE | 2024-03-27 11:58 | W.PN.HOSP.TC ---
Today's Communication/Plan
-
Hospice consult noted
cont current mgmt meanwhile
Assessment / Plan
Assessment / Plan
88yo M with PMHX of Afib, orthostatic hypotension, MDS, advanced dementia brought by his after repeated episodes of syncope when he was trying to have bowel movemnt. Has Hx of the same. As per family - DNR/DNI and avoid invasive medications.
In ED also found with possible UTI and later developed hemoptysis vs hematemesis. ALso Bcx grew coag neg staph, so started on broad spectrum Abx. With advanced dementia and total dependency on assistance with all ADL - family pursuing hospice
A/P:
#Syncope
#Chronic orthostatic hypotension
COnt midodrine
Cardio eval: no additional recommendations
#Paroxysmal Afib
#Non-ischemic myocardial injury
no chest pain
not on AC 2/2 bleeding risk and Hx of falls
Cardio followed
Echo: LV ejection fraction is >75% by visual assessment. No regional wall motion abnormalities are seen. Normal right ventricular size and function. Severely dilated left atrium. Mild mitral stenosis; mean gradient 4 mmHg. Trace mitral
regurgitation. Aortic sclerosis without stenosis.
#MDS with pancytopenia
Hematology consult
follow CBC
#UTI
#Bacteremia
2 set coag neg staph - cannot exclude contamination
ID consult
Vanco Zosyn pending repeated Bcx
Ucx E.coli sensitive to cephalosporins, penicillins
#Hemoptysis vs hematemesis
as per discussion wioth bedside - no invasive mgmt, so no additional benefit from Pulm or GI
Start PPUI
bleeding self-limited
Serial H&H
Blood transfusion consent signed
CTA chest without PE
#Elevated ddimer
CTA chest neg for PE
US LE neg for DVT
#Advanced dementia
unspecified
as per - on baseline, poor communication skills and dependent for ADL
DVT ppx SCDs
DNR/DNI
I have spent at least 58min reviewing chart, test results, communication with consultants and direct patient care
Anticipated Discharge: 24 - 48 hours
Subjective/Interval History
-
Date of Service: March 27, 2024
Objective Data
-
Labs:
Laboratory Results
03/27/24 03/27/24 03/27/24
01:17 08:09 10:42
WBC Cancelled 2.4 L*
Hgb 9.7 L Cancelled 9.7 L
Hct 30.7 L Cancelled 31.7 L
Plt Count Cancelled 38 L
Sodium 134 L
Potassium 3.7
Chloride 105
Carbon Dioxide 23
BUN 21 H
Creatinine 0.8
Glucose 118 H
Calcium 8.3 L
Total Bilirubin 1.1
AST 23
ALT 16
Alkaline Phosphatase 89
03/27/24
17:30
WBC
Hgb Pending
Hct Pending
Plt Count
Sodium
Potassium
Chloride
Carbon Dioxide
BUN
Creatinine
Glucose
Calcium
Total Bilirubin
AST
ALT
Alkaline Phosphatase
Vital Signs:
Vital Signs
Temp Pulse Resp BP Pulse Ox
98.2 F 92 18 116/64 98
03/27/24 11:54 03/27/24 11:54 03/27/24 11:54 03/27/24 11:54 03/27/24 11:54
I&O
03/26/24 03/27/24 03/28/24
06:59 06:59 06:59
Intake Total 0 / 0 1690 / 1690
Output Total 550 / 550
Balance 0 / 0 1140 / 1140
Review of Systems
-
Unable to obtain full review of systems at this time due to: Dementia
History Source: Patient and Family
Physical Exam
-
General: No Apparent Distress
HEENT: Normocephalic
Respiratory: Clear to Auscultation
GI: Soft, Nontender and Nondistended
Neuro: Awake and Alert
Psych: Calm and Apparent Dementia
--- NOTE | 2024-03-27 12:13 | HOSPNOTE ---
Met with patient and family at bedside. I discussed hospice and the philosophy and family in agreement. Equipment will be ordered and delivered on am and transport is needed via ambulance and OOH DNR needed on chart. Attending and CM aware
of plan.
[2024-03-27 12:21] LABS: Atypical Lymphocytes 6 %; Band Neutrophils 6 % (0-3); Lymphocytes 43 % (20-51); Monocytes 11 % (2-9); Myelocytes 1 % (-); Segmented Neutrophils 33 % (42-75)
[2024-03-27 12:22] LABS: Absolute Neutrophils -Man Diff 0.9 10^3/uL (1.4-6.5); Normal RBC Morphology Yes; Nucleated Red Blood Cells 3 (-); Platelets Checked Yes; Total Cells Counted 100
--- NOTE | 2024-03-27 13:51 | W.PN.UPDATE ---
Update Note
Progress Note Update
No direct indication for reverse isolation as patient neutropenia >500. Furthermore - family established home hospise and would like patient to be d/c on hospice after equipment delivered home on 03/29/24
As per Up-To_Date: The definition of neutropenia varies from institution to institution, but neutropenia is usually defined as an absolute neutrophil count (ANC) <1500 or 1000 cells/microL, and severe neutropenia is usually defined as an ANC <500
cells/microL or an ANC that is expected to decrease to <500 cells/microL over the next 48 hours [[email or web address]-[email or web address]-[email or web address]-[email or web address]-[email or web address]-adults/abstract/1]. The risk of
clinically important infection rises as the neutrophil count falls below 500 cells/microL and is higher in those with a prolonged duration of neutropenia (>7 days). For the purposes of this discussion,�we are defining neutropenia as an ANC <500
cells/microL.
--- NOTE | 2024-03-27 14:56 | PN.CDI ---
Addendum entered and electronically signed by Bandar Ge MD 03/27/24 16:38:
Neither - inappropriate query
Original Note:
CDI
- -
CDI:
Physician Documentation Request
Admit Date: 03/25/24 14:49
Dear Doctor Luma,
Please review the following and provide your response in the progress notes.
Clinical Indicators:
PN, 03/27
#...advanced dementia and total dependency on assistance with all ADL
#...- family pursuing hospice
Selected Entries
03/25/24
21:18
Previous Functional Ability: Dependent
Based on the above and your clinical assessment, please provide a diagnosis associated with the patient's current functional status:
Functional quadriplegia (complete immobility due to physical disability or frailty, non-neurologic cause)
Generalized weakness only - without complete immobility
Other (please specify)
Quadriparesis/Quadriplegia
Type
Complete
Incomplete
Unable to determine
Etiology
CVA, cerebral palsy,
injury, etc.
Functional quadriplegia
complete immobility due
severe physical
disability or frailty
Use of terms such as suspected, likely, concern for, or probable (associated with a specific diagnosis that is being evaluated, monitored, or treated as if it exists) are acceptable and can be coded in the inpatient setting, when documented at the
time of discharge.
Thank you,
Marce Aguiar RN BSN CCDS
CDI Specialist
please contact via tiger text
Please use your independent medical judgment in providing your response.
[2024-03-27] MEDS: PROTONIX IV (23:29)
[2024-03-27] MEDS: PROTONIX IV 40 MG IV (23:33)
[2024-03-27] MEDS: NSS (PRESERVATIVE FREE) 10 ML IV (23:33)
[2024-03-27 23:48] LABS: Haptoglobin 183 mg/dL (30-200)
[2024-03-28 03:00] VITALS: BP 136/65
[2024-03-28] MEDS: ZOSYN 50 IV ×2 (03:59→09:29)
[2024-03-28] MEDS: D5/0.9% SODIUM CHLORIDE 1000 IV (04:02)
[2024-03-28] MEDS: VANCOCIN 275 MG IV (05:43)
[2024-03-28 08:13] VITALS: BP 134/74
[2024-03-28] MEDS: ProAmatine 10 MG PO ×2 (08:27→12:34)
[2024-03-28] MEDS: PROTONIX IV 40 MG IV ×2 (08:27→20:03)
[2024-03-28] MEDS: ZOLOFT 150 MG PO (08:27)
[2024-03-28] MEDS: DELTASONE 10 MG PO (08:27)
[2024-03-28] MEDS: NSS (PRESERVATIVE FREE) 10 ML IV ×2 (08:27→20:03)
[2024-03-28 08:43] LABS: Hematocrit 27.8 % (39.0-52.0); Hemoglobin 8.9 g/dL (13.0-18.0); Mean Corpuscular Hgb 27.8 pg (27.0-31.0); Mean Corpuscular Volume 86.9 fL (80.0-94.0); Red Cell Dist. Width 19.3 % (11.5-14.5); White Blood Cell Count 1.5 10^3/uL (4.8-10.8)
[2024-03-28] MEDS: DESENEX/MITRAZOL/ZEASORB 1 APPLIC TOPICAL ×2 (09:30→20:02)
--- NOTE | 2024-03-28 09:31 | PHA.VAN.FU ---
Vancomycin Assessment / Plan
- Assessment
Renal Function: No New Labs Today
WBC's are: Trending Down
In the past 24 hrs, patient has been: Afebrile
Concomitant Antimicrobials: Piperacillin-tazobactam
- Dosing Plan
Continue: Vanc 1250mg IV q24
- Monitoring Plan
No level(s) ordered at this time: Consider levels after 03/30 dose.
- Follow Up
Pharmacy will continue to follow.
Vancomycin Follow UP
- -
Patient Age: 88
Patient Sex: Male
Vancomycin Day #: 3
Indication: Bacteremia
Requesting Provider: Luma
Pertinent Antimicrobial Allergies:
latex - rash
Height / Weight:
Height 5 ft 8 in
Actual Weight 76.113 kg
- Vital Signs / Lab Results
Temp Pulse Resp BP Pulse Ox
97.4 F 86 18 134/74 98
03/28/24 08:13 03/28/24 08:13 03/28/24 08:13 03/28/24 08:13 03/28/24 08:13
Lab Results - Hematology
03/25/24 03/26/24 03/27/24
11:46 10:21 08:09
WBC 5.5 4.6 L Cancelled
Band Neutrophils 4 H 3
03/27/24 03/28/24
10:42 08:14
WBC 2.4 L* 1.5 L*
Band Neutrophils 6 H
Lab Results - Chemistry
03/25/24 03/26/24 03/26/24
11:46 05:13 10:21
BUN 22 H 26 H 25 H
Creatinine 1.1 0.9 0.9
Estimated Creat Clear 57 57
Albumin 4.0 3.5
03/27/24
08:09
BUN 21 H
Creatinine 0.8
Estimated Creat Clear 64
Albumin 2.8 L
Microbiology Results
03/25/24 14:45 Blood Culture - Preliminary
Blood/Venous Coagulase neg. staphylococcus
Gram Stain - Preliminary
03/26/24 13:29 Blood Culture - Preliminary
Blood/Venous No Growth in 24 hours- Final report to follow
03/26/24 13:21 Blood Culture - Preliminary
Blood/Venous No Growth in 24 hours- Final report to follow
03/25/24 13:26 Urine Culture - Final
Urine Escherichia coli
03/25/24 14:45 Blood Culture - Preliminary
Blood/Venous Coagulase neg. staphylococcus
Gram Stain - Preliminary
--- NOTE | 2024-03-28 09:58 | W.PN.HOSP.TC ---
Today's Communication/Plan
-
initiate comfort care
Stop IVF- patient is eating
Stop Abx as agreed with family
Assessment / Plan
Assessment / Plan
88yo M with PMHX of Afib, orthostatic hypotension, MDS, advanced dementia brought by his after repeated episodes of syncope when he was trying to have bowel movement. Has Hx of the same. As per family - DNR/DNI and avoid invasive medications.
In ED also found with possible UTI and later developed hemoptysis vs hematemesis. ALso Bcx grew coag neg staph, so started on broad spectrum Abx. With advanced dementia and total dependency on assistance with all ADL - family pursuing hospice. Since
worsening leukopenia, anemia - discussed with and daughter Lauren on 03/28/24 further mgmt and GOC - family would like comfort measures only, agreeable to stop antibiotics and will plan to take patient home with hospice on 03/28/24.
A/P:
#GOC
Family requested comfort care, avoid all invasive procedures and blood test on 03/28/24. Agreeable to stop Abx
Hocpice at home to be arranged
#Syncope
#Chronic orthostatic hypotension
COnt midodrine
Cardio eval: no additional recommendations
#Paroxysmal Afib
#Non-ischemic myocardial injury
no chest pain
not on AC 2/2 bleeding risk and Hx of falls
Cardio followed
Echo: LV ejection fraction is >75% by visual assessment. No regional wall motion abnormalities are seen. Normal right ventricular size and function. Severely dilated left atrium. Mild mitral stenosis; mean gradient 4 mmHg. Trace mitral
regurgitation. Aortic sclerosis without stenosis.
#MDS with pancytopenia
Cannot exclude BM failure with worsening pancutopenia
Hematology consult
follow CBC
#UTI
#Bacteremia
2 set coag neg staph - cannot exclude contamination
ID consult
Vanco Zosyn pending repeated Bcx
Ucx E.coli sensitive to cephalosporins, penicillins
#Hemoptysis vs hematemesis
as per discussion width bedside - no invasive mgmt, so no additional benefit from Pulm or GI
Start PPUI
bleeding self-limited
Serial H&H
Blood transfusion consent signed
CTA chest without PE
#Elevated ddimer
CTA chest neg for PE
US LE neg for DVT
#Advanced dementia
unspecified
as per - on baseline, poor communication skills and dependent for ADL
DVT ppx SCDs
DNR/DNI
I have spent at least 58min reviewing chart, test results, communication with consultants and direct patient care
Anticipated Discharge: Within 24 hours
Subjective/Interval History
-
Date of Service: March 28, 2024
Objective Data
-
Labs:
Laboratory Results
03/28/24
08:14
WBC 1.5 L*
Hgb 8.9 L
Hct 27.8 L
Plt Count Pending
Vital Signs:
Vital Signs
Temp Pulse Resp BP Pulse Ox
97.4 F 86 18 134/74 98
03/28/24 08:13 03/28/24 08:13 03/28/24 08:13 03/28/24 08:13 03/28/24 08:13
I&O
03/27/24 03/28/24 03/29/24
06:59 06:59 06:59
Intake Total 1690 / 1690 2310 / 2310
Output Total 550 / 550 800 / 800
Balance 1140 / 1140 1510 / 1510
Review of Systems
-
Unable to obtain full review of systems at this time due to: Dementia
History Source: Family
All other systems: Reviewed and negative
Physical Exam
-
General: No Apparent Distress
Neuro: Awake and Alert
Psych: Calm and Apparent Dementia
[2024-03-28 10:00] LABS: Platelet Count 31 10^3/uL (130-400)
[2024-03-28 10:08] LABS: Atypical Lymphocytes 2 %; Band Neutrophils 0 % (0-3); Lymphocytes 46 % (20-51); Metamyelocytes 2 % (-); Monocytes 23 % (2-9); Myelocytes 1 % (-); Segmented Neutrophils 26 % (42-75)
[2024-03-28 10:10] LABS: Absolute Neutrophils -Man Diff 0.3 10^3/uL (1.4-6.5); Platelets Checked Yes
[2024-03-28 10:11] LABS: Anisocytosis 2+; Hypochromasia 1+; Normal RBC Morphology No; Ovalocytes 1+
[2024-03-28 10:12] LABS: Total Cells Counted 100
--- NOTE | 2024-03-28 10:23 | PTCARENOTE ---
Addendum entered by Janet Suárez RN 03/28/24 15:01:
Patient given IV MSO4 for pain as needed. Education of and emotional support provided. thankful.
Original Note:
Patient going home on hospice tomorrow. Made comfort care. Antibiotics and fluids discontinued. Tele discontinued. Family at bedside.
[2024-03-28] MEDS: MORPHINE SULFATE 1 MG IV ×2 (12:31→16:35)
[2024-03-28] MEDS: TOPROL XL 12.5 MG PO (12:34)
--- NOTE | 2024-03-28 13:03 | W.PN.ID1 ---
Date of Service
Date of Service: March 28, 2024
Today's Communication
Sign off
Assessment / Plan
Positive blood cultures ([facility] in single bottle of each set from admit)
- suspect contaminant
Bacteriuria with question of dysuria
- cultures revealing E. coli
Syncopal episodes
Weakness
Progressive Dementia
Myelodysplasia
Orthostatic hypotension
Recommendations:
Patient has now been made comfort care and will be discharged home tomorrow on hospice.
Antibiotics have been discontinued.
Little more to offer from a Infectious Diseases standpoint.
Will see again at your request.
����������������������������������������������������������
Chief Complaint
-: UTI and Bacteremia
Vital Signs / Physical Exam
Vital Signs
Vital Signs
Temp Pulse Resp BP Pulse Ox
97.4 F 86 18 134/74 98
03/28/24 08:13 03/28/24 08:13 03/28/24 08:13 03/28/24 08:13 03/28/24 10:57
Physical Exam
Constitutional: No Acute Distress, Comfortable and Chronically Ill
Pulmonary: Non Labored
Neurological: Awake
Psychological: Calm
Objective Data
Lab Data
Lab Results
03/28/24 08:14
03/27/24 08:09
PT 15.4 Sec (11.4-14.6) H 03/26/24 10:21
INR 1.19 03/26/24 10:21
APTT 40.7 Sec (23.4-35.0) H 03/26/24 10:21
Estimated Creat Clear 64 ml/min 03/27/24 08:09
Total Bilirubin 1.1 mg/dl (0.2-1.3) 03/27/24 08:09
AST 23 U/L (17-59) 03/27/24 08:09
ALT 16 U/L (0-50) 03/27/24 08:09
Alkaline Phosphatase 89 U/L (38-126) 03/27/24 08:09
Most recent labs reviewed.
Micro Results:
03/25/24 14:45 Blood Culture - Preliminary
Blood/Venous Staphylococcus epidermidis
Gram Stain - Preliminary
03/25/24 14:45 Blood Culture - Preliminary
Blood/Venous Coagulase neg. staphylococcus
Gram Stain - Preliminary
03/26/24 13:29 Blood Culture - Preliminary
Blood/Venous No Growth in 24 hours- Final report to follow
03/26/24 13:21 Blood Culture - Preliminary
Blood/Venous No Growth in 24 hours- Final report to follow
03/25/24 13:26 Urine Culture - Final
Urine Escherichia coli
Imaging:
03/26/2024 CT chest (PE study): No evidence of central pulmonary oozing. Thoracic aorta is within normal limits. Some bibasilar subsegmental atelectasis but no focal parenchymal consolidation noted.
[2024-03-28] MEDS: TYLENOL 1000 MG PO (14:12)
[2024-03-28 14:15] VITALS: BP 137/74
--- NOTE | 2024-03-28 14:22 | PTCARENOTE ---
Addendum entered by Janet Suárez RN 03/28/24 17:22:
Patient's temperature down. Good response to Tylenol.
Original Note:
Patient with temp axillary of 101.5. Warm and flushed. Tylenol 1000 mg given. Ice packs placed under arms. aware of temperature and treatment.
[2024-03-28 20:43] VITALS: BP 135/73
[2024-03-28 22:20] VITALS: BP 136/81
[2024-03-29] MEDS: MORPHINE SULFATE 1 MG IV (00:07)
--- NOTE | 2024-03-29 06:04 | PTCARENOTE ---
Patient transferred from to room 330 @3375. Patient AAOx1, VSS shows no s/s of pain or discomfort.
[2024-03-29 07:31] VITALS: BP 129/68
--- NOTE | 2024-03-29 08:56 | CM ---
Addendum entered by Cait Luevano 03/29/24 09:08:
Ambulance [facility] pick[facility] scheduled for 1300
Original Note:
Plan: Discharge to home today with Home Hospice
Ambulance pickup requested for 1300
[2024-03-29] MEDS: DELTASONE 10 MG PO (09:08)
[2024-03-29] MEDS: ZOLOFT 150 MG PO (09:08)
[2024-03-29] MEDS: ProAmatine PO ×2 (09:10→12:33)
[2024-03-29] MEDS: PROTONIX IV 40 MG IV (09:10)
[2024-03-29] MEDS: NSS (PRESERVATIVE FREE) 10 ML IV (09:11)
[2024-03-29] MEDS: DESENEX/MITRAZOL/ZEASORB 1 APPLIC TOPICAL (10:18)
--- NOTE | 2024-03-29 10:37 | W.PN.HOSP.TC ---
Today's Communication/Plan
-
DC home on hospice without Abx as discussed and agreed with family
Assessment / Plan
Assessment / Plan
88yo M with PMHX of Afib, orthostatic hypotension, MDS, advanced dementia brought by his after repeated episodes of syncope when he was trying to have bowel movement. Has Hx of the same. As per family - DNR/DNI and avoid invasive medications.
In ED also found with possible UTI and later developed hemoptysis vs hematemesis. ALso Bcx grew coag neg staph, so started on broad spectrum Abx. With advanced dementia and total dependency on assistance with all ADL - family pursuing hospice. Since
worsening leukopenia, anemia - discussed with and daughter Lauren on 03/28/24 further mgmt and GOC - family would like comfort measures only, agreeable to stop antibiotics and will plan to take patient home with hospice on 03/28/24.
A/P:
#GOC
Family requested comfort care, avoid all invasive procedures and blood test on 03/28/24. Agreeable to stop Abx
Hocpice at home to be arranged
#Syncope
#Chronic orthostatic hypotension
COnt midodrine
Cardio eval: no additional recommendations
#Paroxysmal Afib
#Non-ischemic myocardial injury
no chest pain
not on AC 2/2 bleeding risk and Hx of falls
Cardio followed
Echo: LV ejection fraction is >75% by visual assessment. No regional wall motion abnormalities are seen. Normal right ventricular size and function. Severely dilated left atrium. Mild mitral stenosis; mean gradient 4 mmHg. Trace mitral
regurgitation. Aortic sclerosis without stenosis.
#MDS with pancytopenia
Cannot exclude BM failure with worsening pancytopenia
Hematology consult
follow CBC
#UTI
#Bacteremia
2 set coag neg staph - cannot exclude contamination
ID consult
Vanco Zosyn pending repeated Bcx
Ucx E.coli sensitive to cephalosporins, penicillins
#Hemoptysis vs hematemesis
as per discussion width bedside - no invasive mgmt, so no additional benefit from Pulm or GI
Start PPUI
bleeding self-limited
Serial H&H
Blood transfusion consent signed
CTA chest without PE
#Elevated ddimer
CTA chest neg for PE
US LE neg for DVT
#Advanced dementia
unspecified
as per - on baseline, poor communication skills and dependent for ADL
DVT ppx SCDs
DNR/DNI
I have spent at least 58min reviewing chart, test results, communication with consultants and direct patient care
Anticipated Discharge: Today
Subjective/Interval History
-
Date of Service: March 29, 2024
Objective Data
-
Vital Signs:
Vital Signs
Temp Pulse Resp BP Pulse Ox
98.6 F 112 19 129/68 96
03/29/24 07:31 03/29/24 09:10 03/29/24 07:31 03/29/24 09:10 03/29/24 07:31
I&O
03/28/24 03/29/24 03/30/24
06:59 06:59 06:59
Intake Total 2310 / 2310 530 / 530
Output Total 800 / 800 850 / 850 750 / 750
Balance 1510 / 1510 -320 / -320 -750 / -750
Review of Systems
-
Unable to obtain full review of systems at this time due to: Dementia
Physical Exam
-
General: Comfortable
Neuro: Awake and Alert
Psych: Calm
--- NOTE | 2024-03-29 10:41 | W.DCSUMMARY ---
Discharge Summary
Discharge Data
Date of Admission: 03/25/24
Date of Discharge: 03/29/24
-
Pending Results: No
Hospital Course
88yo M with PMHX of Afib, orthostatic hypotension, MDS, advanced dementia brought by his after repeated episodes of syncope when he was trying to have bowel movement. Has Hx of the same. As per family - DNR/DNI and avoid invasive medications.
In ED also found with possible UTI and later developed hemoptysis vs hematemesis. ALso Bcx grew coag neg staph, so started on broad spectrum Abx. With advanced dementia and total dependency on assistance with all ADL - family desided comfort care
only approach and hospice. Found worsening leukopenia, anemia - discussed with and daughter Lauren on 03/28/24 further mgmt and GOC - family would like comfort measures only, agreeable to stop antibiotics and will plan to take patient home with
hospice on 03/28/24. One of the bcx gre s/sammieidis, the other - s.christopher.
I have spent at least 38min reviewing chart, test results, communication with consultants and direct patient care
Patient was managed for:
#GOC
#Syncope
#Chronic orthostatic hypotension
#Paroxysmal Afib
#Non-ischemic myocardial injury
#MDS with pancytopenia
#UTI
#Bacteremia
#Hemoptysis vs hematemesis
#Elevated ddimer
#Advanced dementia
Discharge Plan
-
Patient Disposition: Home with Hospice
Discharge Diagnosis/Procedures: UTI
Diet: As tolerated
Activity: As tolerated
Referrals:
Anay Stewart DO [Family Provider] -
Prescriptions:
Continued
sertraline 100 mg Tablet
150 mg PO DAILY
lorazepam 0.5 mg Tablet
0.5 mg PO TIDPRN PRN (Reason: anxiety)
acetaminophen 500 mg Tablet
1,000 mg PO Q6HPRN PRN (Reason: mild pain/fever)
midodrine 10 mg tablet
10 mg PO BID@0900,1300
metoprolol succinate 25 mg tablet extended release 24 hr
12.5 mg PO DAILY@1100
prednisone 10 mg tablet
10 mg PO DAILY
Discharge Orders:
Discharge Patient (As Directed); Ordered 03/29/24
Ordered By: Bandar Ge
Discharge Date and Time
Print Language: URDU
[2024-03-29 12:20] VITALS: BP 147/81
[2024-03-29] MEDS: TOPROL XL 12.5 MG PO (12:29)
[2024-03-29] MEDS: TYLENOL 1000 MG PO (12:32)
== END 2024-03-29 14:48 | disposition hospice, home (50) | DRG 312 ==
LOC: 3 WEST ACU 14:49
PROVIDERS: ADMITTING PHYSICIAN Internal Medicine; ATTENDING PHYSICIAN Internal Medicine; CONSULT PHYSICIAN Internal Medicine; CONSULT PHYSICIAN Internal Medicine Infectious Disease; EMERGENCY PHYSICIAN Emergency Medicine; FAMILY PHYSICIAN Family Medicine; OTHER PHYSICIAN Internal Medicine Hematology & Oncology
PROC: 30233R1 Transfusion of Nonautologous Platelets into Peripheral Vein, Percutaneous Approach (ICD-10-PCS; 2024-03-26)
DX: I95.1 Orthostatic hypotension (principal); N39.0 Urinary tract infection, site not specified; F03.918 Unspecified dementia, unspecified severity, with other behavioral disturbance; F03.93 Unspecified dementia, unspecified severity, with mood disturbance; F03.94 Unspecified dementia, unspecified severity, with anxiety; Z66 Do not resuscitate; Z51.5 Encounter for palliative care; I5A Non-ischemic myocardial injury (non-traumatic); D61.818 Other pancytopenia; R78.81 Bacteremia; K92.0 Hematemesis; R04.2 Hemoptysis; I48.0 Paroxysmal atrial fibrillation; B96.20 Unspecified Escherichia coli [E. coli] as the cause of diseases classified elsewhere; D46.9 Myelodysplastic syndrome, unspecified; Z86.16 Personal history of COVID-19; Z91.040 Latex allergy status; Z79.899 Other long term (current) drug therapy; Z96.643 Presence of artificial hip joint, bilateral; Z79.52 Long term (current) use of systemic steroids
CPT/HCPCS: 71045; 71275; 80048; 80053; 81003; 81015; 82248; 83010; 83615; 84484; 85014; 85018; 85025; 85379; 85384; 85610; 85730; 86850; 86900; 86901; 87040; 87077; 87086; 87147; 87150; 87186; 87205; 92610; 93005; 93306; 93970; 96360; 99285; P9073; Q9967